=== PATIENT | female | born 1975 | race African-American/Black ===

== ENCOUNTER 2018-05-07 09:28 | Emergency (ER) | payer SELFPAY ==
[~2018-05-07] VITALS: Ht 160 cm; Wt 103.4 kg
[~2018-05-07 09:28] MED LIST: ACHD5005 PO; BUSP5TAB59; CETI10TA17; CHLO25TA22; DCS100C PO; DIAZ5TAB PO; HYDR-4226 PO; IBP600T1 PO; IRON1TAB94 PO; METR500T PO; MMT17NA; NAPR-243 PO; NITR-65 PO; ONDA4TAB8 PO
--- OUTSIDE RECORDS SUMMARY | 2018-05-07 09:33 | XMS REPORT ---
Author Author [employer] Organization [facility] Address [address] [place] [address] Care Team Providers Care Medical Lab Assistant Name Role Phone [employer] Unavailable PROBLEMS Type Condition ICD9-CM Code ROB55-EV Code Onset Dates Condition Status SNOMED Code Problem Depression with anxiety F41.8 Active 485230830 Problem Gastroesophageal reflux disease, esophagitis presence not specified K21.9 Active 991492874 Problem Essential hypertension I10 Active 93896528 Problem Hypercholesteremia E78.00 Active 56085581 Problem Seasonal allergic rhinitis due to pollen J30.1 Active 28055435 Problem Anxiety F41.9 Active 80531525 ALLERGIES No Known Allergies ENCOUNTERS Encounter Location Date Diagnosis [facility] [id number] [place] [address]1970[address]133 Apr, [facility] [id number] [place] [address] 23585- 7750 Feb, Essential hypertension I10 ; Hypercholesteremia E78.00 ; Pre -diabetes R73.03 and Depression with anxiety F41.8 [facility] [address] [place] [id number] [place] [address] 03948- 4258 Feb, Essential hypertension I10 ; Pre-diabetes R73.03 ; BMI 40.0- 44.9, adult Z68.41 ; Depression with anxiety F41.8 ; Seasonal allergic rhinitis due to pollen J30.1 ; Hypercholesteremia E78.00 and Anxiety F41.9 [facility] WALK IN [facility] [id number] [place] [address]174 [address]267 08 Jan, 2018 Left ear impacted cerumen H61.22 ; Sore throat J02.9 ; BMI 40.0-44.9, adult Z68.41 and Viral pharyngitis J02.9 [facility] WALK IN [place] [id number] [place] [address]013 [address]2261 Jan, Dysuria R30.0 ; Vaginal discharge N89.8 and BMI 40.0-44.9, adult Z68.41 [facility] WALK IN [address] [address] Jan, Dysuria R30.0 ; Urgency of urination R39.15 ; Frequency of urination R35.0 and Type 2 diabetes mellitus without complication, without long- term current use of insulin E11.9 [facility] WALK IN [address] [address] Sep, Seasonal allergic rhinitis, unspecified trigger J30.2 [facility] WALK IN [address] [address] Sep, Dysuria R30.0 and Acute cystitis without hematuria N30.00 [facility] IN [address] [address] Jun, Nasopharyngitis acute J00 [address] [address]334 Mar, Essential hypertension I10 ; Gastroesophageal reflux disease , esophagitis presence not specified K21.9 and Depression with anxiety F41.[address] [address]- 2047 Feb, [address] [address]- 6026 Jan, Essential hypertension I10 ; Gastroesophageal reflux disease , esophagitis presence not specified K21.9 and Anxiety F41.[address] 0[address]32- 1362 Jan, Essential hypertension I10 ; Seasonal allergic rhinitis due to pollen J30.1 ; Gastroesophageal reflux disease, esophagitis presence not specified K21.9 ; Excessive daytime sleepiness G47.19 ; Snoring R06.83 ; Anxiety F41.9 ; Decreased breath sounds at right lung base R09.89 ; Otalgia of left ear H92.02 and Tonsillar hypertrophy J35.1 [facility] WALK IN [place] [address] [address] Jan, Bronchitis J40 and Acute seasonal allergic rhinitis, unspecified trigger J30.2 [facility] WALK IN [place] [address] [address] December, Pharyngitis due to other organism J02.8 [place] [address] 21357- 8368 Nov, Scabies infestation B86 [place] [address] 05394- 7838 Oct, [place] [address] 25546- 2279 Oct, Dermatitis L30.9 [place] [address] 14357- 2831 May, Routine health maintenance Z00.00 ; Excessive daytime sleepiness G47.19 ; Snoring R06.83 ; Acute non-recurrent frontal sinusitis J01.10 and Hx of candidiasis Z86.19 [place] [address] 11396- 0349 May, Seasonal allergic rhinitis due to pollen J30.1 ; Dizziness R42 ; Sore throat J02.9 ; Gastroesophageal reflux disease, esophagitis presence not specified K21.9 ; Snoring R06.83 ; Apnea, not elsewhere classified R06.81 ; Tonsillar hypertrophy J35.1 ; Excessive daytime sleepiness G47.19 and Anxiety F41.9 [facility] WALK IN [place] [address] 7[address] Apr, Benign positional vertigo, unspecified laterality H81.10 [place] [address] 19183- 6725 Jan, Urinary frequency R35.0 ; Essential hypertension I10 and Vaginal dryness N89.8 [place] [id number] [place] [address]146- 5384 04 Dec, 2015 Unprotected sex Z72.51 and Vaginal discharge N89.8 [facility] IN [facility] [id number] [place] [address] 02703 -[address]39 19 Sep, 2015 Acute bacterial sinusitis J01.90 and Acute pharyngitis J02.9 [place] [address] 76303- 2450 Sep, Essential hypertension I10 ; Dizziness R42 ; FH: HTN ( hypertension) Z82.49 ; Family history of diabetes mellitus Z83.3 and Anxiety F41.9 [place] [address] 96790- 0559 Sep, [place] [address] 77070- 8508 Sep, Essential hypertension I10 [place] [address] 85479- 6512 Sep, Essential hypertension I10 ; Dizziness R42 ; FH: HTN ( hypertension) Z82.49 and Family history of diabetes mellitus Z83.3 [place] [address] 98448- 8523 20 May, 2015 URI (upper respiratory infection) J06.9 [place] [address] 92113- 5199 09 May, 2015 UTI (urinary tract infection) N39.0 and Vaginitis N76.0 [place] [address] 65196- 6839 10 Jan, 2015 Routine gynecological examination V72.31 ; Breast cancer screening V76.10 and Urinary frequency 788.41 [place] [address] 46314- 1765 14 Nov, 2014 [place] [address] 13211- 3769 13 Nov, 2014 [facility] [place] [facility] [address] [id number] [place] [address]- 8964 Oct, [facility] [place] [facility] [address] [id number] [place] [address]- 1799 Oct, [facility] [place] [facility] [address] [id number] [place] [address]- 0429 Oct, [facility] [place] [facility] [address] [id number] [place] [address]- 4204 Jan, [facility] [place] [facility] [address] [id number] [place] [address]- 5592 December, [facility] [place] [facility] [address] [id number] [place] [address]- 3536 December, [facility] [place] [facility] [address] [id number] [place] [address]- 7997 December, [facility] [place] [facility] [address] [id number] [place] [address]- 5496 Nov, [facility] [place] [facility] [address] [id number] [place] [address]- 9496 Nov, [facility] [place] [facility] [address] [id number] [place] [address]- 4250 Nov, [facility] [place] [facility] [address] [id number] [place] [address]- 8266 Oct, [facility] [place] [facility] [address] [id number] [address] 6[address] Jun, [facility] [place] [facility] [address] [id number] [place] [address]- 5374 Jun, [facility] [place] [facility] [address] [id number] [place] [address]- 9567 May, [facility] [place] [facility] [address] [id number] [place] [address]- 2400 May, [facility] [place] [facility] [address] [address] May, [facility] [address] [address] May, [facility] [address] [address]- 5876 May, [facility] [address] [place] [address] 34387- 3582 May, [facility] [address] [facility] [id number] [address] 2546 May, [facility] [address] [place] [address] 62424- 2766 May, [facility] [address] [address] 2276 Jan, [facility] [id number] [place] [address] 94033- 9171 May, [facility] [address] [address] May, [facility] [address] [place] [address]199- 7900 May, [facility] [address] [address] 8262 May, [facility] [address] [address] 6656 May, [facility] [address] [address]272 Apr, [facility] [address] [address]- 2653 Mar, IMMUNIZATIONS No Known Immunizations SOCIAL HISTORY Never Assessed REASON FOR VISIT [facility] follow up. Pelvic pain, painful intercourse, frequency. NEYDA Fischer PLAN OF CARE Activity Details Follow Up 4 Weeks Reason:follow up /BS VITAL SIGNS Height 63 in 2018-02-21 Weight 226.7 lbs 2018-02-21 Temperature 98.4 degrees Fahrenheit 2018-02-21 Heart Rate 95 bpm 2018-02-21 Respiratory Rate 20 2018-02-21 BMI 40.15 kg/m2 2018-02-21 Blood pressure systolic 116 mmHg 2018-02-21 Blood pressure diastolic 84 mmHg 2018-02-21 MEDICATIONS Medication Instructions Dosage Frequency Start Date End Date Duration Status BuSpar 10 mg Orally Twice a day 1 tablet 12h Feb, 30 days Active Chlorthalidone 25 MG Orally Once a day 1 tablet 24h 90 days Active MetFORMIN HCl ER 500 mg Orally Once a day 1 tablet with evening meal 24h Feb, 30 day(s) Active Loratadine 10 mg Orally Once a day 1 tablet 24h May, 90 days Active RESULTS No Results PROCEDURES No Known procedures INSTRUCTIONS MEDICATIONS ADMINISTERED No Known Medications MEDICAL (GENERAL) HISTORY Type Description Date Medical History Hearing loss-having trouble hearing out of left ear d/t growth Medical History UTI Medical History Backache ever since she had epidurals Medical History Headache syndrome Medical History Cancer-treated for cervical cancer awhile back Medical History Tonsillar hypertrophy Medical History Excessive daytime sleepiness Medical History Snoring Medical History Apnea, not elsewhere classified Surgical History Hysterectomy 2012 Surgical History Eye Surgery on nerves in both eyes Surgical History C sections x 5 Surgical History ACL/MCL/ fx right femur repair 11/2015 Hospitalization History surgery
--- OUTSIDE RECORDS SUMMARY | 2018-05-07 09:33 | XMS REPORT ---
Author Author SHANTA WREN [facility] WALK IN [facility] Address [address] [place] [address] Care Team Providers Care Industrial Maintenance Repairer Helper Name Role Phone SIENA SHANTA Unavailable PROBLEMS Type Condition ICD9-CM Code ZWD85-TQ Code Onset Dates Condition Status SNOMED Code Problem Depression with anxiety F41.8 Active 543527624 Problem Gastroesophageal reflux disease, esophagitis presence not specified K21.9 Active 250808245 Problem Essential hypertension I10 Active 13317560 Problem Hypercholesteremia E78.00 Active 69300814 Problem Seasonal allergic rhinitis due to pollen J30.1 Active 68909354 Problem Anxiety F41.9 Active 42730568 ALLERGIES No Known Allergies ENCOUNTERS Encounter Location Date Diagnosis [facility] [address] [place] [address] 73583- 0329 Apr, [facility] [address] [place] [id number] [place] [address] 39047- 7640 Feb, Essential hypertension I10 ; Hypercholesteremia E78.00 ; Pre -diabetes R73.03 and Depression with anxiety F41.8 [place] [address] [place] [address] 14209- 3794 Feb, Essential hypertension I10 ; Pre-diabetes R73.03 ; BMI 40.0- 44.9, adult Z68.41 ; Depression with anxiety F41.8 ; Seasonal allergic rhinitis due to pollen J30.1 ; Hypercholesteremia E78.00 and Anxiety F41.9 [facility] IN [facility] [address] [place] [address]52 -[address]75 08 Jan, 2018 Left ear impacted cerumen H61.22 ; Sore throat J02.9 ; BMI 40.0-44.9, adult Z68.41 and Viral pharyngitis J02.9 [facility]ALK IN [place] [id number] [place] [address]41 -7986 Jan, Dysuria R30.0 ; Vaginal discharge N89.8 and BMI 40.0-44.9, adult Z68.41 [facility] WALK IN [address] [address] Jan, Dysuria R30.0 ; Urgency of urination R39.15 ; Frequency of urination R35.0 and Type 2 diabetes mellitus without complication, without long- term current use of insulin E11.9 [facility] WALK IN [address] [address] Sep, Seasonal allergic rhinitis, unspecified trigger J30.2 [facility] WALK IN [address] 05179 [address]97 10 Sep, 2017 Dysuria R30.0 and Acute cystitis without hematuria N30.00 [facility] IN [address] [address]67 Jun, Nasopharyngitis acute J00 [address] [address]- [address] Mar, Essential hypertension I10 ; Gastroesophageal reflux disease , esophagitis presence not specified K21.9 and Depression with anxiety F41.[address] [address]- [address] Feb, [address] [address]- 7214 Jan, Essential hypertension I10 ; Gastroesophageal reflux disease , esophagitis presence not specified K21.9 and Anxiety F41.[address] [address]- 4612 Jan, Essential hypertension I10 ; Seasonal allergic rhinitis due to pollen J30.1 ; Gastroesophageal reflux disease, esophagitis presence not specified K21.9 ; Excessive daytime sleepiness G47.19 ; Snoring R06.83 ; Anxiety F41.9 ; Decreased breath sounds at right lung base R09.89 ; Otalgia of left ear H92.02 and Tonsillar hypertrophy J35.1 [facility] WALK IN [place] [address] [address] Jan, Bronchitis J40 and Acute seasonal allergic rhinitis, unspecified trigger J30.2 [facility] WALK IN [place] [address] [address] December, Pharyngitis due to other organism J02.8 [place] [address] 67[address]- 5831 Nov, Scabies infestation B86 [place] [address] [address]21- 3855 Oct, [place] [address] [address]- 3814 Oct, Dermatitis L30.9 [place] [address] 72431- 9032 May, Routine health maintenance Z00.00 ; Excessive daytime sleepiness G47.19 ; Snoring R06.83 ; Acute non-recurrent frontal sinusitis J01.10 and Hx of candidiasis Z86.19 [place] [address] 77021- 6425 May, Seasonal allergic rhinitis due to pollen J30.1 ; Dizziness R42 ; Sore throat J02.9 ; Gastroesophageal reflux disease, esophagitis presence not specified K21.9 ; Snoring R06.83 ; Apnea, not elsewhere classified R06.81 ; Tonsillar hypertrophy J35.1 ; Excessive daytime sleepiness G47.19 and Anxiety F41.9 [facility]ALK [place] [address] 648[address]05 Apr, Benign positional vertigo, unspecified laterality H81.10 [place] [address] 87521- 9740 Jan, Urinary frequency R35.0 ; Essential hypertension I10 and Vaginal dryness N89.8 [place] [address] [place] [id number] [place] [address] 80475- 3945 December, Unprotected sex Z72.51 and Vaginal discharge N89.8 [facility] IN [facility] [address] [address] 19 Sep, 2015 Acute bacterial sinusitis J01.90 and Acute pharyngitis J02.9 [place] [address] 20385- 2785 11 Sep, 2015 Essential hypertension I10 ; Dizziness R42 ; FH: HTN ( hypertension) Z82.49 ; Family history of diabetes mellitus Z83.3 and Anxiety F41.9 [place] [address] 04736- 7145 Sep, [place] [address] 23385- 9650 Sep, Essential hypertension I10 [place] [address] 81271- 1869 Sep, Essential hypertension I10 ; Dizziness R42 ; FH: HTN ( hypertension) Z82.49 and Family history of diabetes mellitus Z83.3 [place] [address] 02403- 0389 May, URI (upper respiratory infection) J06.9 [place] [address] 43[address]- 9894 09 May, 2015 UTI (urinary tract infection) N39.0 and Vaginitis N76.0 [place] [address] 38710- 1150 10 Jan, 2015 Routine gynecological examination V72.31 ; Breast cancer screening V76.10 and Urinary frequency 788.41 [place] [address] 07733- 5719 14 Nov, 2014 [place] [address] [address]608- 5939 Nov, [facility] [place] [facility] [address] [id number] [place] [address]- 4864 Oct, [facility] [place] [facility] [address] [id number] [place] [address]- 7044 Oct, [facility] [place] [facility] [address] [id number] [place] [address]- 1324 Oct, [facility] [place] [facility] [address] [id number] [place] [address]- 4324 Jan, [facility] [place] [facility] [address] [id number] [place] [address]- 6347 December, [facility] [place] [facility] [address] [id number] [place] [address]- 8834 December, [facility] [place] [facility] [address] [id number] [place] [address]- 7365 December, [facility] [place] [facility] [address] [id number] [place] [address]- 1810 Nov, [facility] [place] [facility] [address] [id number] [place] [address]- 7987 Nov, [facility] [place] [facility] [address] [id number] [place] [address]- 5015 Nov, [facility] [place] [facility] [address] [id number] [place] [address]- 4027 Oct, [facility] [place] [facility] [address] [id number] [place] [address]- 9016 Jun, [facility] [place] [facility] [address] [id number] [place] [address] Jun, [facility] [place] [facility] [address] [id number] [place] [address] May, [facility] [place] [facility] [address] [id number] [place] [address] May, [facility] [place] [facility] [address] [address] May, [facility] [address] [facility] [id number] [address] May, [facility] [address] [facility] [id number], [place] [address]- 0368 May, [facility] [address] [place] [address] 577898- 7438 May, [facility] [address] [facility] [id number], [place] [address]- 8157 May, [facility] [address] [place] [address] 499133- 0294 May, [facility] [address] [place] [id number] [address]- 7077 Jan, [facility] [address] [place] [address] 95766- 3971 May, [facility] [address], [place] [address]- 5140 May, [facility] [address] [place] [id number] [address]- 0[address] May, [facility] [address], [place] [address]- 7420 May, [facility] [address], [place] [address]- 4719 May, [facility] [address] [place] [id number], [place] [address]- 8117 Apr, [facility] [address] [address] Mar, IMMUNIZATIONS No Known Immunizations SOCIAL HISTORY Never Assessed REASON FOR VISIT Vaginal burning- much worse than yesterday JStrasserRN PLAN OF CARE Activity Details Follow Up prn Reason: VITAL SIGNS Height 63 in 2018-01-14 Weight 226.2 lbs 2018-01-14 Temperature 98.3 degrees Fahrenheit 2018-01-14 Heart Rate 92 bpm 2018-01-14 Respiratory Rate 22 2018-01-14 BMI 40.07 kg/m2 2018-01-14 Blood pressure systolic 126 mmHg 2018-01-14 Blood pressure diastolic 90 mmHg 2018-01-14 MEDICATIONS Medication Instructions Dosage Frequency Start Date End Date Duration Status BusPIRone HCl 5 mg Orally 2 times a day prn 1 tablet twice a day Sep, 90 days Active Chlorthalidone 25 MG Orally Once a day 1 tablet 24h 90 days Active Sudafed 12 Hour 120 MG Orally every 12 hrs 1 tablet as needed 12h 10 Not-Taking Metformin HCl 500 mg Orally Once a day with evening meal 1 tablet Feb Active Omeprazole 20 mg Orally Once a day 1 capsules each evening 30 minutes before bed 24h May, 90 days Not-Taking HydrOXYzine HCl 50 MG Orally every 6 hrs, prn itching 1 Oct, 90 days Not-Taking Flonase 50 MCG/ACT Nasally Once a day 1 spray in each nostril 24h Sep, 30 day(s) Not-Taking Loratadine 10 mg Orally Once a day 1 tablet 24h May, 90 days Active RESULTS Name Result Date Reference Range UA LONG DIP (IN HOUSE) 2018-01-14 Lot # [id number] Exp date 2018-12-12 Clarity clear Color yellow Odor none GLU negative ALAN negative KET negative SG >=1.030 BLO negative pH 6.5 Protein negative URO 1.0 NIT negative MÓNICA negative Lot # [id number] Exp date Jul 2018 PROCEDURES Procedure Date Ordered Result Body Site URINALYSIS, AUTO, W/O SCOPE January 14, 2018 INSTRUCTIONS MEDICATIONS ADMINISTERED No Known Medications MEDICAL [...]
--- OUTSIDE RECORDS SUMMARY | 2018-05-07 09:33 | XMS REPORT ---
Author Author [employer] Organization [facility] Address [address] [place] [address] Care Team Providers Care Evp Name Role Phone [employer] Unavailable PROBLEMS Type Condition ICD9-CM Code XAR62-WN Code Onset Dates Condition Status SNOMED Code Problem Depression with anxiety F41.8 Active 989564486 Problem Gastroesophageal reflux disease, esophagitis presence not specified K21.9 Active 846135131 Problem Essential hypertension I10 Active 50480854 Problem Hypercholesteremia E78.00 Active 33561046 Problem Seasonal allergic rhinitis due to pollen J30.1 Active 10678748 Problem Anxiety F41.9 Active 25488477 ALLERGIES No Information ENCOUNTERS Encounter Location Date Diagnosis [facility] [id number] [place] [address]00[address] 1215 Apr, [facility] [id number] [place] [address] 15553- 4552 Feb, Essential hypertension I10 ; Hypercholesteremia E78.00 ; Pre -diabetes R73.03 and Depression with anxiety F41.8 [place] [id number] [place] [address] 31779- 5928 Feb, Essential hypertension I10 ; Pre-diabetes R73.03 ; BMI 40.0- 44.9, adult Z68.41 ; Depression with anxiety F41.8 ; Seasonal allergic rhinitis due to pollen J30.1 ; Hypercholesteremia E78.00 and Anxiety F41.9 [facility] WALK IN [facility] [id number] [place] [address] 78691 -5769 08 Jan, 2018 Left ear impacted cerumen H61.22 ; Sore throat J02.9 ; BMI 40.0-44.9, adult Z68.41 and Viral pharyngitis J02.9 [facility] WALK IN [place] [id number] [place] [address]268 -8779 Jan, Dysuria R30.0 ; Vaginal discharge N89.8 and BMI 40.0-44.9, adult Z68.41 [facility] WALK IN [address] [address] Jan, Dysuria R30.0 ; Urgency of urination R39.15 ; Frequency of urination R35.0 and Type 2 diabetes mellitus without complication, without long- term current use of insulin E11.9 [facility] WALK IN [address] [address] Sep, Seasonal allergic rhinitis, unspecified trigger J30.2 [facility] WALK IN [address] [address] 10 Sep, 2017 Dysuria R30.0 and Acute cystitis without hematuria N30.00 [facility] WALK IN [address] 6[address]79[address] Jun, Nasopharyngitis acute J00 [address] [address]- 7617 Mar, Essential hypertension I10 ; Gastroesophageal reflux disease , esophagitis presence not specified K21.9 and Depression with anxiety F41.[address] [address]- 5579 Feb, [address] [address]01- [address]35 Jan, Essential hypertension I10 ; Gastroesophageal reflux disease , esophagitis presence not specified K21.9 and Anxiety F41.[address] 53433- 7194 Jan, Essential hypertension I10 ; Seasonal allergic rhinitis due to pollen J30.1 ; Gastroesophageal reflux disease, esophagitis presence not specified K21.9 ; Excessive daytime sleepiness G47.19 ; Snoring R06.83 ; Anxiety F41.9 ; Decreased breath sounds at right lung base R09.89 ; Otalgia of left ear H92.02 and Tonsillar hypertrophy J35.1 [facility] WALK IN [place] [address] [address] Jan, Bronchitis J40 and Acute seasonal allergic rhinitis, unspecified trigger J30.2 [facility] WALK IN [place] [address] [address] December, Pharyngitis due to other organism J02.8 [place] [address] 03141- 7382 Nov, Scabies infestation B86 [place] [address] 17385- 3519 Oct, [place] [address] 64509- 9059 Oct, Dermatitis L30.9 [place] [address] 84509- 8081 May, Routine health maintenance Z00.00 ; Excessive daytime sleepiness G47.19 ; Snoring R06.83 ; Acute non-recurrent frontal sinusitis J01.10 and Hx of candidiasis Z86.19 [place] [address] 91243- 6730 May, Seasonal allergic rhinitis due to pollen J30.1 ; Dizziness R42 ; Sore throat J02.9 ; Gastroesophageal reflux disease, esophagitis presence not specified K21.9 ; Snoring R06.83 ; Apnea, not elsewhere classified R06.81 ; Tonsillar hypertrophy J35.1 ; Excessive daytime sleepiness G47.19 and Anxiety F41.9 [facility] WALK IN [place] [address] [address] Apr, Benign positional vertigo, unspecified laterality H81.10 [place] [address] 42531- 9387 Jan, Urinary frequency R35.0 ; Essential hypertension I10 and Vaginal dryness N89.8 [place] [id number] [place] [address] 02155- 9636 04 Dec, 2015 Unprotected sex Z72.51 and Vaginal discharge N89.8 [facility] IN [facility] [id number] [place] [address] 77112 -4792 19 Sep, 2015 Acute bacterial sinusitis J01.90 and Acute pharyngitis J02.9 [place] [address] 02723- 6140 Sep, Essential hypertension I10 ; Dizziness R42 ; FH: HTN ( hypertension) Z82.49 ; Family history of diabetes mellitus Z83.3 and Anxiety F41.9 [place] [address] 30130- 5989 03 Sep, 2015 [place] [address] 88283- 2287 Sep, Essential hypertension I10 [place] [address] 71830- 7161 Sep, Essential hypertension I10 ; Dizziness R42 ; FH: HTN ( hypertension) Z82.49 and Family history of diabetes mellitus Z83.3 [place] [address] 17545- 8718 20 May, 2015 URI (upper respiratory infection) J06.9 [place] [address] 54078- 3515 09 May, 2015 UTI (urinary tract infection) N39.0 and Vaginitis N76.0 [place] [address] 39412- 2819 10 Jan, 2015 Routine gynecological examination V72.31 ; Breast cancer screening V76.10 and Urinary frequency 788.41 [place] [address] 35360- 4780 14 Nov, 2014 [place] [address] 49995- 0780 Nov, [facility] [address] [id number] [place] [address] 12[address] Oct, [facility] [place] [facility] [address] [id number] [place] [address]- 4757 Oct, [facility] [place] [facility] [address] [id number] [place] [address]- 6494 Oct, [facility] [place] [facility] [address] [id number] [place] [address]- 8766 Jan, [facility] [place] [facility] [address] [id number] [place] [address]- 9843 December, [facility] [place] [facility] [address] [id number] [place] [address]- 8022 December, [facility] [place] [facility] [address] [id number] [place] [address]- 9787 December, [facility] [place] [facility] [address] [id number] [place] [address]- 2455 Nov, [facility] [place] [facility] [address] [id number] [place] [address]- 2510 Nov, [facility] [place] [facility] [address] [id number] [place] [address]- 3677 Nov, [facility] [place] [facility] [address] [id number], [place] [address] 28[address] Oct, [facility] [place] [facility] [address] [id number], [place] [address] 0682 Jun, [facility] [place] [facility] [address] [id number] [place] [address]- 6702 Jun, [facility] [place] [facility] [address] [id number] [place] [address]- 5800 May, [facility] [place] [facility] [address] [id number] [place] [address]- 9207 May, [facility] [place] [facility] [address] [address] 15 May, 2012 [facility] [address] [address] 62[address] May, [facility] [address] [place] [address]- 0[address] May, [facility] [address] [place] [address] 75694- 4940 May, [facility] [address], [place] [address]- 3087 May, [facility] [address] [place] [address] 31824- 8468 May, [facility] [address] [place] [address] 44399- 7681 Jan, [facility] [id number] [place] [address] 58531- 3815 May, [facility] [address] [address]- 4396 May, [facility] [id number] [place] [address] 99186- 6567 May, [facility] [address], [place] [address]- 3129 May, [facility] [address], [place] [address]- 0451 May, [facility] [address], [place] [address]- 54[address] Apr, [facility] [address], [place] [address] 50[address] Mar, IMMUNIZATIONS No Known Immunizations SOCIAL HISTORY Never Assessed REASON FOR VISIT Lab (walk-in) PLAN OF CARE VITAL SIGNS MEDICATIONS Unknown Medications RESULTS No Results PROCEDURES Procedure Date Ordered Result Body Site LIPID PANEL February 22, 2018 COMPREHEN METABOLIC PANEL February 22, 2018 ASSAY THYROID STIM HORMONE February 22, 2018 COMPLETE CBC W/AUTO DIFF WBC February 22, 2018 Hemoglobin Test Send Out 0 dollar February 22, 2018 INSTRUCTIONS MEDICATIONS ADMINISTERED No Known Medications [...]
--- OUTSIDE RECORDS SUMMARY | 2018-05-07 09:33 | XMS REPORT ---
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 Name Role Phone SIENA SHANTA Unavailable PROBLEMS Type Condition ICD9-CM Code BNH93-CN Code Onset Dates Condition Status SNOMED Code Problem Depression with anxiety F41.8 Active 707857065 Problem Gastroesophageal reflux disease, esophagitis presence not specified K21.9 Active 180527351 Problem Essential hypertension I10 Active 92515063 Problem Hypercholesteremia E78.00 Active 50431258 Problem Seasonal allergic rhinitis due to pollen J30.1 Active 74112330 Problem Anxiety F41.9 Active 54256357 ALLERGIES No Known Allergies ENCOUNTERS Encounter Location Date Diagnosis [facility] [address] [place] [address]41- 0531 Apr, [facility] [id number] [place] [address] 81667- 0696 Feb, Essential hypertension I10 ; Hypercholesteremia E78.00 ; Pre -diabetes R73.03 and Depression with anxiety F41.8 [place] [address] [place] [address] 77796- 5778 Feb, Essential hypertension I10 ; Pre-diabetes R73.03 ; BMI 40.0- 44.9, adult Z68.41 ; Depression with anxiety F41.8 ; Seasonal allergic rhinitis due to pollen J30.1 ; Hypercholesteremia E78.00 and Anxiety F41.9 [facility] IN [facility] [address] [place] [address]2365 -[address]73 08 Jan, 2018 Left ear impacted cerumen H61.22 ; Sore throat J02.9 ; BMI 40.0-44.9, adult Z68.41 and Viral pharyngitis J02.9 [facility] WALK IN [place] [id number] [place] [address]211 [address]7852 Jan, Dysuria R30.0 ; Vaginal discharge N89.8 and BMI 40.0-44.9, adult Z68.41 [facility] WALK IN [address] [address] Jan, Dysuria R30.0 ; Urgency of urination R39.15 ; Frequency of urination R35.0 and Type 2 diabetes mellitus without complication, without long- term current use of insulin E11.9 [facility] WALK IN [address] [address] Sep, Seasonal allergic rhinitis, unspecified trigger J30.2 [facility] WALK IN [address] [address] 10 Sep, 2017 Dysuria R30.0 and Acute cystitis without hematuria N30.00 [facility] IN [address] 30960 [address] Jun, Nasopharyngitis acute J00 [address] [address]11 Mar, Essential hypertension I10 ; Gastroesophageal reflux disease , esophagitis presence not specified K21.9 and Depression with anxiety F41.[address] [address]- 7099 Feb, [address] 82338- 9960 Jan, Essential hypertension I10 ; Gastroesophageal reflux disease , esophagitis presence not specified K21.9 and Anxiety F41.[address] 98[address]- 7742 Jan, Essential hypertension I10 ; Seasonal allergic rhinitis due to pollen J30.1 ; Gastroesophageal reflux disease, esophagitis presence not specified K21.9 ; Excessive daytime sleepiness G47.19 ; Snoring R06.83 ; Anxiety F41.9 ; Decreased breath sounds at right lung base R09.89 ; Otalgia of left ear H92.02 and Tonsillar hypertrophy J35.1 [facility] WALK IN [place] [address] [address] Jan, Bronchitis J40 and Acute seasonal allergic rhinitis, unspecified trigger J30.2 [facility] WALK IN [place] [address] 17[address] December, Pharyngitis due to other organism J02.8 [place] [address] 82491- 4795 Nov, Scabies infestation B86 [place] [address] 83255- 8832 Oct, [place] [address] 53594- 9412 Oct, Dermatitis L30.9 [place] [address] [address]13- 5705 May, Routine health maintenance Z00.00 ; Excessive daytime sleepiness G47.19 ; Snoring R06.83 ; Acute non-recurrent frontal sinusitis J01.10 and Hx of candidiasis Z86.19 [place] [address] 23689- 1390 May, Seasonal allergic rhinitis due to pollen J30.1 ; Dizziness R42 ; Sore throat J02.9 ; Gastroesophageal reflux disease, esophagitis presence not specified K21.9 ; Snoring R06.83 ; Apnea, not elsewhere classified R06.81 ; Tonsillar hypertrophy J35.1 ; Excessive daytime sleepiness G47.19 and Anxiety F41.9 [facility] WALK IN [place] [address] [address] Apr, Benign positional vertigo, unspecified laterality H81.10 [place] [address] 87401- 6423 Jan, Urinary frequency R35.0 ; Essential hypertension I10 and Vaginal dryness N89.8 [place] [id number] [place] [address] 18769- 2057 December, Unprotected sex Z72.51 and Vaginal discharge N89.8 [facility] IN [facility] [address] [address] 19 Sep, 2015 Acute bacterial sinusitis J01.90 and Acute pharyngitis J02.9 [place] [address] 34817- 9709 11 Sep, 2015 Essential hypertension I10 ; Dizziness R42 ; FH: HTN ( hypertension) Z82.49 ; Family history of diabetes mellitus Z83.3 and Anxiety F41.9 [place] [address] 28073- 7968 Sep, [place] [address] 71759- 6074 Sep, Essential hypertension I10 [place] [address] 95988- 3200 Sep, Essential hypertension I10 ; Dizziness R42 ; FH: HTN ( hypertension) Z82.49 and Family history of diabetes mellitus Z83.3 [place] [address] 10557- 8647 May, URI (upper respiratory infection) J06.9 [place] [address] 84336- 9634 09 May, 2015 UTI (urinary tract infection) N39.0 and Vaginitis N76.0 [place] [address] 37812- 6015 10 Jan, 2015 Routine gynecological examination V72.31 ; Breast cancer screening V76.10 and Urinary frequency 788.41 [place] [address] 83433- 2724 14 Nov, 2014 [place] [address] 8[address]34- 3125 Nov, [facility] [place] [facility] [address] [id number] [place] [address]- 7843 Oct, [facility] [place] [facility] [address] [id number] [place] [address]- 6383 Oct, [facility] [place] [facility] [address] [id number] [place] [address]- 0885 Oct, [facility] [place] [facility] [address] [id number] [place] [address]- 8727 Jan, [facility] [place] [facility] [address] [id number] [place] [address]- 9182 December, [facility] [place] [facility] [address] [id number] [place] [address]- 0201 December, [facility] [place] [facility] [address] [id number] [place] [address]- 5194 December, [facility] [place] [facility] [address] [id number] [place] [address]- 4527 Nov, [facility] [place] [facility] [address] [id number] [place] [address]- 2463 Nov, [facility] [place] [facility] [address] [id number] [place] [address]- 6542 Nov, [facility] [place] [facility] [address] [id number] [place] [address]- 2680 Oct, [facility] [place] [facility] [address] [id number] [place] [address]- 5848 Jun, [facility] [place] [facility] [address] [id number] [place] [address] Jun, [facility] [place] [facility] [address] [id number] [place] [address] May, [facility] [place] [facility] [address] [id number] [place] [address] May, [facility] [place] [facility] [address], [place] [address]- 7424 May, [facility] [address], [place] [address]- 0654 May, [facility] [address] [place] [address] 2546 May, [facility] [address] [place] [address] 04785- 5200 May, [facility] [address] [facility] [id number], [place] [address]- 9403 May, [facility] [id number] [place] [address] 73950- 8456 May, [facility] [address], [place] [address]- 1358 Jan, [facility] [address] [place] [address] 51098- 2179 May, [facility] [address], [place] [address]- 0418 May, [facility] [id number] [address]- 9914 May, [facility] [address], [place] [address]- 1402 May, [facility] [address], [place] [address]- 6238 May, [facility] [address], [place] [address]- 1060 Apr, [facility] [address], [place] [address]- 6131 Mar, IMMUNIZATIONS No Known Immunizations SOCIAL HISTORY Never Assessed REASON FOR VISIT sore throat and earache started yesterday JStrasserRN PLAN OF CARE Activity Details Follow Up prn Reason: VITAL SIGNS Height 63 in 2018-01-20 Weight 226.2 lbs 2018-01-20 Temperature 97.5 degrees Fahrenheit 2018-01-20 Heart Rate 80 bpm 2018-01-20 Respiratory Rate 18 2018-01-20 BMI 40.07 kg/m2 2018-01-20 Blood pressure systolic 120 mmHg 2018-01-20 Blood pressure diastolic 80 mmHg 2018-01-20 MEDICATIONS Medication Instructions Dosage Frequency Start Date End Date Duration Status Flonase 50 MCG/ACT Nasally Once a day 1 spray in each nostril 24h Sep, 30 day(s) Not-Taking Sudafed 12 Hour 120 MG Orally every 12 hrs 1 tablet as needed 12h 10 Not-Taking Chlorthalidone 25 MG Orally Once a day 1 tablet 24h 90 days Active Metformin HCl 500 mg Orally Once a day with evening meal 1 tablet Feb Active Loratadine 10 mg Orally Once a day 1 tablet 24h May, 90 days Active BusPIRone HCl 5 mg Orally 2 times a day prn 1 tablet twice a day Sep, 90 days Active HydrOXYzine HCl 50 MG Orally every 6 hrs, prn itching 1 Oct, 90 days Not-Taking Omeprazole 20 mg Orally Once a day 1 capsules each evening 30 minutes before bed 24h May, 90 days Not-Taking RESULTS Name Result Date Reference Range STREP A (IN HOUSE) 2018-01-20 STREP A negative Control + Lot # [id number] Exp date 2020-05-30 PROCEDURES Procedure Date Ordered Result Body Site EAR IRRIGATION January 20, 2018 STREP A ASSAY W/OPTIC January 20, 2018 INSTRUCTIONS MEDICATIONS ADMINISTERED No Known Medications [...]
--- OUTSIDE RECORDS SUMMARY | 2018-05-07 09:34 | XMS REPORT ---
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 Unknown Non Drug Allergy Apr, Unknown SOCIAL HISTORY No smoking Hx information available PLAN OF CARE VITAL SIGNS Height 63 in 2016-05-04 Weight 212.6 lbs 2016-05-04 Heart Rate 80 bpm 2016-05-04 Respiratory Rate 18 2016-05-04 BMI 37.66 kg/m2 2016-05-04 Blood pressure systolic 114 mmHg 2016-05-04 Blood pressure diastolic 84 mmHg 2016-05-04 MEDICATIONS Medication Instructions Dosage Frequency Start Date End Date Duration Status Meclizine HCl 25 MG Orally 3 times a day, prn 1 tablet as needed Apr, 05 days Active Nasonex 50 MCG/ACT Nasally Once a day 2 sprays in each nostril 24h Sep, 14 days Active Valium 5 MG Active Zofran ODT 4 MG Orally every 8 hrs 1 tablet on the tongue and allow to dissolve 8h Active RESULTS No Results PROCEDURES Procedure Date Ordered Related Diagnosis Body Site Office Visit, Est Pt., Level 3 May 04, 2016 IMMUNIZATIONS No Known Immunizations
--- OUTSIDE RECORDS SUMMARY | 2018-05-07 09:34 | XMS REPORT ---
Author Author JENICORDELLEVA Organization [facility] [place] Address [address] [place] [address] Care Team Providers Care Agronomy Instructor Name Role Phone NGOCORDELL HeELE Unavailable PROBLEMS Type Condition ICD9-CM Code VBH13-YZ Code Onset Dates Condition Status SNOMED Code Problem Tonsillar hypertrophy J35.1 Active 19001173 Problem Gastroesophageal reflux disease, esophagitis presence not specified K21.9 Active 749503091 Problem Excessive daytime sleepiness G47.19 Active 293160059448 Problem Elevated hemoglobin A1c R73.09 Active 090217668 Problem Hypercholesteremia E78.00 Active 12795769 Problem Dizziness R42 Active 614906590 Problem Essential hypertension I10 Active 39090566 Problem Depression with anxiety F41.8 Active 701757614 Problem Seasonal allergic rhinitis due to pollen J30.1 Active 59417261 Problem Sore throat J02.9 Active 787693497 Problem Anxiety F41.9 Active 71054366 Problem Apnea, not elsewhere classified R06.81 Active 1503803 Problem Snoring R06.83 Active 29200546 ALLERGIES No Known Allergies ENCOUNTERS Encounter Location Date Diagnosis [facility] [place] [address] [place] [address] Nov, [facility] [address] [place] [id number] [place] [address]82 Sep, Seasonal allergic rhinitis, unspecified trigger J30.2 [facility] [id number] [place] [address] -2070 10 Sep, 2017 Dysuria R30.0 and Acute cystitis without hematuria N30.00 [facility] [address] [place] [address] -4713 16 Jun, 2017 Nasopharyngitis acute J00 [facility] [place] [address] [place] [address]- 6529 Mar, Essential hypertension I10 ; Gastroesophageal reflux disease , esophagitis presence not specified K21.9 and Depression with anxiety F41.8 [place] [address] [address] Feb, [place] [address] [address] Jan, Essential hypertension I10 ; Gastroesophageal reflux disease , esophagitis presence not specified K21.9 and Anxiety F41.9 [place] [address] [address]- 5548 Jan, Essential hypertension I10 ; Seasonal allergic rhinitis due to pollen J30.1 ; Gastroesophageal reflux disease, esophagitis presence not specified K21.9 ; Excessive daytime sleepiness G47.19 ; Snoring R06.83 ; Anxiety F41.9 ; Decreased breath sounds at right lung base R09.89 ; Otalgia of left ear H92.02 and Tonsillar hypertrophy J35.1 [facility] [address] [address] Jan, Bronchitis J40 and Acute seasonal allergic rhinitis, unspecified trigger J30.2 [facility] [address] [address] December, Pharyngitis due to other organism J02.[address] [address] Nov, Scabies infestation B86 [place] [address] [address]324 Oct, [address] [address] 40[address] Oct, Dermatitis L30.[address] [address] 5[address] May, Routine health maintenance Z00.00 ; Excessive daytime sleepiness G47.19 ; Snoring R06.83 ; Acute non-recurrent frontal sinusitis J01.10 and Hx of candidiasis Z86.19 [place] [address] 67[address]- 8644 May, Seasonal allergic rhinitis due to pollen J30.1 ; Dizziness R42 ; Sore throat J02.9 ; Gastroesophageal reflux disease, esophagitis presence not specified K21.9 ; Snoring R06.83 ; Apnea, not elsewhere classified R06.81 ; Tonsillar hypertrophy J35.1 ; Excessive daytime sleepiness G47.19 and Anxiety F41.9 [facility] [place] [address] [address]47 Apr, Benign positional vertigo, unspecified laterality H81.10 [place] [address] [address]- 63[address] Jan, Urinary frequency R35.0 ; Essential hypertension I10 and Vaginal dryness N89.[address] [address]- [address] December, Unprotected sex Z72.51 and Vaginal discharge N89.8 [place] [address] [address] 19 Sep, 2015 Acute bacterial sinusitis J01.90 and Acute pharyngitis J02.9 [place] [address] [address]- 1327 11 Sep, 2015 Essential hypertension I10 ; Dizziness R42 ; FH: HTN ( hypertension) Z82.49 ; Family history of diabetes mellitus Z83.3 and Anxiety F41.9 [place] [address] [address] 6026 Sep, [address] [address]- 65[address] Sep, Essential hypertension I10 [address] [address]- 375[address] Sep, Essential hypertension I10 ; Dizziness R42 ; FH: HTN ( hypertension) Z82.49 and Family history of diabetes mellitus Z83.3 [facility] [place] [address] [address] 20 May, 2015 URI (upper respiratory infection) J06.9 [facility] [place] [id number] [address] 09 May, 2015 UTI (urinary tract infection) N39.0 and Vaginitis N76.0 [facility] [place] [address] [id number] [place] [address]40- 0628 10 Jan, 2015 Routine gynecological examination V72.31 ; Breast cancer screening V76.10 and Urinary frequency 788.41 [facility] [place] [address] [id number] [place] [address] 53442- 9093 14 Nov, 2014 [facility] [place] [id number] [place] [address] 34019- 9420 Nov, [facility] [place] [id number] [place] [address] 87319- 9679 Oct, [facility] [place] [address] [address]- 65[address] Oct, [facility] [place] [id number] [place] [address] 88578- 3393 Oct, [facility] [place] [address] [address] 41[address] Jan, [facility] [place] [id number] [address] December, [facility] [place] [address] [address]- 0[address] December, [facility] [place] [id number] [place] [address] [id number]- 4850 December, [facility] [place] [address] [address] Nov, [facility] [place] [id number] [place] [address] 33421- 0[address] Nov, [facility] [place] [facility] [address] [id number] [place] [address]- 8075 Nov, [facility] [place] [facility] [address] [facility] [id number] [address]- 0918 Oct, [facility] [place] [facility] [address] [facility] [id number] [place] [address]- 2266 Jun, [facility] [place] [facility] [address] [id number] [address]- 5860 Jun, [facility] [place] [facility] [address] [facility] [id number] [place] [address]- 5480 May, [facility] [place] [facility] [address] [facility] [id number] [place] [address]- 5034 May, [facility] [place] [facility] [address] [facility] [id number] [place] [address]- 0987 May, [facility] [place] [facility] [address] [id number] [address]- 7431 May, [facility] [place] [facility] [address] [place] [id number] [address]- 1065 May, [facility] [place] [facility] [address] [facility] [id number] [address]- 47[address] 08 May, 2012 [facility] [place] [facility] [address] [facility] [id number] [place] [address]- 4[address] May, [facility] [place] [facility] [address] [facility] [id number] [place] [address]- 1766 May, [facility] [place] [facility] [address] [facility] [id number] [place] [address]- 4754 Jan, [facility] [place] [facility] [address] [facility] [id number] [place] [address]- 0665 May, [facility] [place] [facility] [address] [facility] [id number] [place] [address]- 7151 May, [facility] [place] [facility] [address] [facility] [id number] [place] [address]- 6426 May, [facility] [place] [address] [facility] [id number] [place] [address]- 4566 May, [facility] [place] [address] [facility] [id number] [place] [address]- 5926 May, [facility] [place] [address] [facility] [id number] [place] [address]- 6059 Apr, [facility] [place] [address] [facility] [id number] [place] [address]- 5847 Mar, IMMUNIZATIONS No Known Immunizations SOCIAL HISTORY Never Assessed REASON FOR VISIT Blood Pressure f/u -NEYDA Childress, Out of all medications. PLAN OF CARE Activity Details Follow Up 3 Months, prn Reason:[facility] VITAL SIGNS Height 63 in 2017-02-10 Weight 214 lbs 2017-02-10 Temperature 98.6 degrees Fahrenheit 2017-02-10 Heart Rate 88 bpm 2017-02-10 Respiratory Rate 22 2017-02-10 BMI 37.90 kg/m2 2017-02-10 Blood pressure systolic 150 mmHg 2017-02-10 Blood pressure diastolic 90 mmHg 2017-02-10 MEDICATIONS Medication Instructions Dosage Frequency Start Date End Date Duration Status HydrOXYzine HCl 50 MG Orally every 6 hrs, prn itching 1 Oct, 90 days Active Omeprazole 20 mg Orally Once a day 1 capsules each evening 30 minutes before bed 24h May, 90 days Active Chlorthalidone 25 MG Orally Once a day 1 tablet 24h 90 days Active Loratadine 10 mg Orally Once a day 1 tablet 24h May, 90 days Active RESULTS Name Result Date Reference Range Xray : Chest (IN HOUSE) 2017-02-10 PROCEDURES Procedure Date Ordered Result Body Site CHEST X-RAY February 10, 2017 INSTRUCTIONS MEDICATIONS ADMINISTERED No Known Medications MEDICAL (GENERAL) HISTORY Type Description Date Medical History Hearing loss-having trouble hearing out of left ear d/t growth Medical History UTI Medical History Backache ever since she had epidurals Medical History Headache syndrome Medical History Cancer-treated for cervical cancer awhile back Surgical History Hysterectomy 2012 Surgical History Eye Surgery on nerves in both eyes Surgical History C sections x 5 Surgical History ACL/MCL/ fx right femur repair 11/2015 Hospitalization History surgery
--- OUTSIDE RECORDS SUMMARY | 2018-05-07 09:34 | XMS REPORT ---
Author Author LUCAS CUNHA [facility] eClinicalWorks Address Unknown Phone Unavailable Care Team Providers Care Sandwich Hand Name Role Phone LUCAS CUNHA CP Unavailable Allergies, Adverse Reactions, Alerts Substance Reaction Event Type N.K.D.A. Info Not Available Non Drug Allergy Problems Problem Type Condition Code Onset Dates Condition Status Assessment Vaginitis N76.0 Active Assessment UTI (urinary tract infection) N39.0 Active Medications Medication Code System Code Instructions Start Date End Date Status Dosage Bactrim DS NDC [address]-71 800-160 MG Orally 2 times a day May 23, 2015 May 28, 2015 1 tablet Diflucan NDC [address]-73 150 MG Orally May 23, 2015 1 tablet Cranberry NDC 0 405 MG Orally not defined Procedures Procedure Coding System Code Date URINE CULTURE/COLONY COUNT CPT-4 53880 May 23, 2015 Office Visit, Est Pt., Level 2 CPT-4 26273 May 23, 2015 URINALYSIS, AUTO, W/O SCOPE CPT-4 06052 May 23, 2015 Vital Signs Date/Time: May 23, 2015 Temperature 98.3 F Weight 214.5 lbs Height 63 in BMI 37.99 Index Blood Pressure Diastolic 85 mmHg Blood Pressure Systolic 130 mmHg Cardiac Monitoring Heart Rate 80 bpm Results Name Result Date Reference Range Unit Abnormality Flag CULTURE, URINE Summary Purpose eClinicalWorks Submission
--- OUTSIDE RECORDS SUMMARY | 2018-05-07 09:34 | XMS REPORT ---
Author Author NGOEVA He Organization [facility] Address [address] [place] [address] Care Team Providers Care Turn Out Worker Name Role Phone NGOEVA He Unavailable PROBLEMS Type Condition ICD9-CM Code DFP81-YG Code Onset Dates Condition Status SNOMED Code Problem Tonsillar hypertrophy J35.1 Active 54112470 Problem Gastroesophageal reflux disease, esophagitis presence not specified K21.9 Active 532176386 Problem Excessive daytime sleepiness G47.19 Active 141667724326 Problem Elevated hemoglobin A1c R73.09 Active 601276417 Problem Hypercholesteremia E78.00 Active 19934774 Problem Dizziness R42 Active 863211248 Problem Essential hypertension I10 Active 11524105 Problem Depression with anxiety F41.8 Active 555821405 Problem Seasonal allergic rhinitis due to pollen J30.1 Active 30980711 Problem Sore throat J02.9 Active 508875394 Problem Anxiety F41.9 Active 14915247 Problem Apnea, not elsewhere classified R06.81 Active 7388828 Problem Snoring R06.83 Active 99565484 ALLERGIES No Known Allergies ENCOUNTERS Encounter Location Date Diagnosis [facility] [id number] [place] [address]90 [address]131 20 Sep, 2017 Seasonal allergic rhinitis, unspecified trigger J30.2 [facility] [id number] [place] [address] 65775 -7273 10 Sep, 2017 Dysuria R30.0 and Acute cystitis without hematuria N30.00 [facility] [address] [address] Jun, Nasopharyngitis acute J00 [facility] [id number] [place] [address]- 2017 03 Mar, 2017 Essential hypertension I10 ; Gastroesophageal reflux disease , esophagitis presence not specified K21.9 and Depression with anxiety F41.8 [place] [address] [address]- [address] Feb, [place] [address] [place] [id number]- 481 Jan, Essential hypertension I10 ; Gastroesophageal reflux disease , esophagitis presence not specified K21.9 and Anxiety F41.9 [place] [address] [address]- 0344 Jan, Essential hypertension I10 ; Seasonal allergic rhinitis due to pollen J30.1 ; Gastroesophageal reflux disease, esophagitis presence not specified K21.9 ; Excessive daytime sleepiness G47.19 ; Snoring R06.83 ; Anxiety F41.9 ; Decreased breath sounds at right lung base R09.89 ; Otalgia of left ear H92.02 and Tonsillar hypertrophy J35.1 [facility] [place] [address] [address] Jan, Bronchitis J40 and Acute seasonal allergic rhinitis, unspecified trigger J30.2 [facility] [place] [address] [address] December, Pharyngitis due to other organism J02.8 [place] [address] [address]- 2[address] Nov, Scabies infestation B86 [place] [address] [address]- 0014 Oct, [place] [address] [address]- 3783 Oct, Dermatitis L30.9 [place] [address] [address]- 4163 May, Routine health maintenance Z00.00 ; Excessive daytime sleepiness G47.19 ; Snoring R06.83 ; Acute non-recurrent frontal sinusitis J01.10 and Hx of candidiasis Z86.19 [place] [address] [address]- 1981 May, Seasonal allergic rhinitis due to pollen J30.1 ; Dizziness R42 ; Sore throat J02.9 ; Gastroesophageal reflux disease, esophagitis presence not specified K21.9 ; Snoring R06.83 ; Apnea, not elsewhere classified R06.81 ; Tonsillar hypertrophy J35.1 ; Excessive daytime sleepiness G47.19 and Anxiety F41.9 [facility] [address] [address] Apr, Benign positional vertigo, unspecified laterality H81.10 [place] [address] [address]- 6263 Jan, Urinary frequency R35.0 ; Essential hypertension I10 and Vaginal dryness N89.8 [place] [address] [address]- 5528 December, Unprotected sex Z72.51 and Vaginal discharge N89.8 [facility] [address] [address] -1795 Sep, Acute bacterial sinusitis J01.90 and Acute pharyngitis J02.9 [place] [address] 77[address]- 1714 11 Sep, 2015 Essential hypertension I10 ; Dizziness R42 ; FH: HTN ( hypertension) Z82.49 ; Family history of diabetes mellitus Z83.3 and Anxiety F41.9 [place] [address] [address]- 7308 Sep, [place] [address] [address]- [address]70 Sep, Essential hypertension I10 [address] [address]- [address] 02 Sep, 2015 Essential hypertension I10 ; Dizziness R42 ; FH: HTN ( hypertension) Z82.49 and Family history of diabetes mellitus Z83.3 [place] [address] [place] [address]- 4123 20 May, 2015 URI (upper respiratory infection) J06.9 [facility] [address] [address]- 8[address] 09 May, 2015 UTI (urinary tract infection) N39.0 and Vaginitis N76.0 [facility] [address], [place] [address]- 6[address] 10 Jan, 2015 Routine gynecological examination V72.31 ; Breast cancer screening V76.10 and Urinary frequency 788.41 [facility] [address], [place] [address]- 267[address] 14 Nov, 2014 [facility] [address] [place] [address]11- 7220 Nov, [facility] [address], [place] [address]- 2639 Oct, [facility] [address] [id number] [address]- 5755 Oct, [facility] [address], [place] [address]- 1689 Oct, [facility] [address], [place] [address]- 4981 Jan, [facility] [address], [place] [address]- [address]16 December, [facility] [address], [place] [address]- 6579 December, [facility] [address], [place] [address]- 7135 December, [facility] [address], [place] [address]- 0697 Nov, [facility] [address], [place] [address]- 7915 Nov, [facility] [address], [place] [address]- 8144 Nov, [facility] [place] [facility] [address] [id number] [place] [address]- 9391 Oct, [facility] [place] [facility] [address] [facility] [id number], [place] [address]- 0326 Jun, [facility] [place] [facility] [address] [facility] [id number] [place] [address]- 5690 Jun, [facility] [place] [facility] [address] [id number], [place] [address]- 5017 May, [facility] [place] [facility] [id number] [place] [address], [place] [address]- 4872 May, [facility] [place] [facility] [address] [facility] [id number] [place] [address]- 5900 May, [facility] [place] [facility] [address] [facility] [id number], [place] [address]- 9419 May, [facility] [place] [facility] [address] [facility] [id number], [place] [address]- 7544 May, [facility] [place] [facility] [address] [facility] [id number], [place] [address]- 0188 May, [facility] [place] [facility] [address] [facility] [id number], [place] [address]- 0996 May, [facility] [place] [facility] [address] [facility] [id number], [place] [address]- [address] May, [facility] [place] [facility] [address] [facility] [id number], [place] [address]- 9100 Jan, [facility] [place] [facility] [address] [facility] [id number], [place] [address]- 0610 24 May, 2011 [facility] [place] [facility] [address] [facility] [id number], [place] [address]- 5273 May, [facility] [place] [facility] [address] [facility] [id number], [place] [address]- 8620 May, [facility] [place] [facility] [address] [facility] [id number] [place] [address] May, [facility] [address] [facility] [id number], [place] [address]- 0532 May, [facility] [address] [facility] [id number], [place] [address]- 9793 Apr, [facility] [address] [facility] [id number][place] [address] Mar, IMMUNIZATIONS No Known Immunizations SOCIAL HISTORY Never Assessed REASON FOR VISIT Depression fu -- solange bo PLAN OF CARE Activity Details Follow Up 3 Months, prn Reason:f/u depression/anxiety VITAL SIGNS Height 63 in 2017-03-17 Weight 213.0 lbs 2017-03-17 Temperature 98.0 degrees Fahrenheit 2017-03-17 BMI 37.73 kg/m2 2017-03-17 Blood pressure systolic 122 mmHg 2017-03-17 Blood pressure diastolic 76 mmHg 2017-03-17 MEDICATIONS Medication Instructions Dosage Frequency Start Date End Date Duration Status Loratadine 10 mg Orally Once a day 1 tablet 24h May, 90 days Active BusPIRone HCl 5 mg Orally 2 times a day prn 1 tablet twice a day Sep, 90 days Active HydrOXYzine HCl 50 MG Orally every 6 hrs, prn itching 1 Oct, 90 days Active Chlorthalidone 25 MG Orally Once a day 1 tablet 24h 90 days Active Metformin HCl 500 mg Orally Once a day with evening meal 1 tablet Feb Active Omeprazole 20 mg Orally Once a day 1 capsules each evening 30 minutes before bed 24h May, 90 days Active RESULTS No [...]
--- OUTSIDE RECORDS SUMMARY | 2018-05-07 09:34 | XMS REPORT ---
Author Author NGOEVA He Organization [facility] Address [address] [place] [address] Care Team Providers Care Protective Clothing Issuer Name Role Phone NGOCORDELL HeELE Unavailable PROBLEMS Type Condition ICD9-CM Code XEN74-TS Code Onset Dates Condition Status SNOMED Code Problem Tonsillar hypertrophy J35.1 Active 64856070 Problem Gastroesophageal reflux disease, esophagitis presence not specified K21.9 Active 034194850 Problem Excessive daytime sleepiness G47.19 Active 201946753577 Problem Elevated hemoglobin A1c R73.09 Active 477185444 Problem Hypercholesteremia E78.00 Active 51632969 Problem Dizziness R42 Active 199602429 Problem Essential hypertension I10 Active 74120101 Problem Depression with anxiety F41.8 Active 015073784 Problem Seasonal allergic rhinitis due to pollen J30.1 Active 42413366 Problem Sore throat J02.9 Active 214653877 Problem Anxiety F41.9 Active 54695486 Problem Apnea, not elsewhere classified R06.81 Active 3433261 Problem Snoring R06.83 Active 43773436 ALLERGIES No Information ENCOUNTERS Encounter Location Date Diagnosis [facility] [address] [id number] [place] [address] Nov, [facility] [id number] [address]21 [address]99 Sep, Seasonal allergic rhinitis, unspecified trigger J30.2 [facility] [id number] [address]86 [address]2918 10 Sep, 2017 Dysuria R30.0 and Acute cystitis without hematuria N30.00 [facility] [id number] [address]89 [address]8940 16 Jun, 2017 Nasopharyngitis acute J00 [facility] [id number] [address]111- 6588 Mar, Essential hypertension I10 ; Gastroesophageal reflux disease , esophagitis presence not specified K21.9 and Depression with anxiety F41.8 [place] [address] [address] Feb, [place] [address] [address]26- [address]84 Jan, Essential hypertension I10 ; Gastroesophageal reflux disease , esophagitis presence not specified K21.9 and Anxiety F41.9 [place] [address] [address]- 59[address] Jan, Essential hypertension I10 ; Seasonal allergic rhinitis due to pollen J30.1 ; Gastroesophageal reflux disease, esophagitis presence not specified K21.9 ; Excessive daytime sleepiness G47.19 ; Snoring R06.83 ; Anxiety F41.9 ; Decreased breath sounds at right lung base R09.89 ; Otalgia of left ear H92.02 and Tonsillar hypertrophy J35.1 [facility] [place] [address] [address] Jan, Bronchitis J40 and Acute seasonal allergic rhinitis, unspecified trigger J30.2 [facility] [address] [address] December, Pharyngitis due to other organism J02.[address] [address] Nov, Scabies infestation B86 [place] [address] [address]- 9428 Oct, [address] [address] Oct, Dermatitis L30.[address] [address]- [address] May, Routine health maintenance Z00.00 ; Excessive daytime sleepiness G47.19 ; Snoring R06.83 ; Acute non-recurrent frontal sinusitis J01.10 and Hx of candidiasis Z86.19 [place] [address] [address]16- 93[address] 06 May, 2016 Seasonal allergic rhinitis due to pollen J30.1 ; Dizziness R42 ; Sore throat J02.9 ; Gastroesophageal reflux disease, esophagitis presence not specified K21.9 ; Snoring R06.83 ; Apnea, not elsewhere classified R06.81 ; Tonsillar hypertrophy J35.1 ; Excessive daytime sleepiness G47.19 and Anxiety F41.9 [facility] [address] [address] Apr, Benign positional vertigo, unspecified laterality H81.10 [place] [address] [address]- 73[address] Jan, Urinary frequency R35.0 ; Essential hypertension I10 and Vaginal dryness N89.[address] [address]- [address] December, Unprotected sex Z72.51 and Vaginal discharge N89.8 [place] [address] [address] 19 Sep, 2015 Acute bacterial sinusitis J01.90 and Acute pharyngitis J02.9 [place] [address] [address]- 7015 11 Sep, 2015 Essential hypertension I10 ; Dizziness R42 ; FH: HTN ( hypertension) Z82.49 ; Family history of diabetes mellitus Z83.3 and Anxiety F41.9 [place] [address] [address]- 5581 Sep, [address] [address]- [address] Sep, Essential hypertension I10 [address] 8[address]- [address] Sep, Essential hypertension I10 ; Dizziness R42 ; FH: HTN ( hypertension) Z82.49 and Family history of diabetes mellitus Z83.3 [facility] [address] [address] 20 May, 2015 URI (upper respiratory infection) J06.9 [facility] [address] [address] 09 May, 2015 UTI (urinary tract infection) N39.0 and Vaginitis N76.0 [facility] [id number] [address] 93156- 8841 10 Jan, 2015 Routine gynecological examination V72.31 ; Breast cancer screening V76.10 and Urinary frequency 788.41 [facility] [id number] [address] 02879- 1076 14 Nov, 2014 [facility] [id number] [address] 97342- 6563 Nov, [facility] [id number] [address] 35722- 3484 Oct, [facility] [address] [address] 4[address] Oct, [facility] [address], [place] [address] 59[address] Oct, [facility] [address] [place] [address] 88[address] Jan, [facility] [address] [address] 9[address] December, [facility] [address] [place] [address] 9[address] December, [facility] [id number] [address] December, [facility] [address] [address] Nov, [facility] [id number] [address] 83272- 7211 Nov, [facility] [place] [facility] [address] [id number] [place] [address]- [address] Nov, [facility] [place] [facility] [address] [id number] [place] [address]- 7324 Oct, [facility] [place] [facility] [address] [facility] [id number] [place] [address]- 0561 Jun, [facility] [place] [facility] [address] [id number] [place] [address]- 9555 Jun, [facility] [place] [facility] [address] [id number] [place] [address]- 8140 May, [facility] [place] [facility] [address] [id number] [place] [address]- 2742 May, [facility] [place] [facility] [address] [facility] [id number] [place] [address]- 8399 May, [facility] [place] [facility] [address] [facility] [id number] [place] [address]- 7826 May, [facility] [place] [facility] [address] [facility] [id number] [place] [address]- 1138 May, [facility] [place] [facility] [address] [facility] [id number] [place] [address]- 6205 May, [facility] [place] [facility] [address] [facility] [id number] [address] 65[address] May, [facility] [place] [facility] [address] [facility] [id number], [place] [address]- 33[address] May, [facility] [place] [facility] [address] [id number] [place] [address]- 8996 Jan, [facility] [place] [facility] [address] [facility] [id number] [place] [address]- 8964 May, [facility] [place] [facility] [address] [facility] [id number] [place] [address]- 0424 May, [facility] [place] [facility] [address] [facility] [id number] [place] [address]- 65[address] May, [facility] [address] [facility] [id number], [place] [address]- 6[address] May, [facility] [address] [facility] [id number], [place] [address]- 1379 May, [facility] [address] [facility] [id number] [address]- [address] Apr, [facility] [address] [facility] [id number], [place] [address]- 27[address] Mar, IMMUNIZATIONS No Known Immunizations SOCIAL HISTORY Never Assessed REASON FOR VISIT Lab (walk-in)--[facility] OF CARE VITAL SIGNS MEDICATIONS Unknown Medications RESULTS Name Result Date Reference Range THYROID ANALYZER 2017-02-11 TSH 1.020 0.450-4.500 A1C 2017-02-11 Hemoglobin A1c 6.1 4.8-5.6 CBC 2017-02-11 WBC 6.6 3.4-10.8 RBC 4.90 3.77-5.28 Hemoglobin 14.5 11.1-15.9 Hematocrit 43.5 34.0-46.6 MCV 89 79-97 MCH 29.6 26.6-33.0 MCHC 33.3 31.5-35.7 RDW 13.2 12.3-15.4 Platelets 315 150-379 Neutrophils 52 Lymphs 34 Monocytes 10 Eos 2 Basos 1 Neutrophils (Absolute) 3.5 1.4-7.0 Lymphs (Absolute) 2.3 0.7-3.1 Monocytes(Absolute) 0.7 0.1-0.9 Eos (Absolute) 0.1 0.0-0.4 Baso (Absolute) 0.0 0.0-0.2 Immature Granulocytes 1 Immature Grans (Abs) 0.0 0.0-0.1 LIPID PANEL 2017-02-11 Cholesterol, Total 204 100-199 Triglycerides 81 0-149 HDL Cholesterol 87 >39 VLDL Cholesterol Rj 16 5-40 LDL Cholesterol Calc 101 0-99 CMP 2017-02-11 Glucose, Serum 92 65-99 BUN 13 6-24 Creatinine, Serum 0.86 0.57-1.00 eGFR If NonAfricn Am 85 >59 eGFR If Africn Am 98 >59 BUN/Creatinine Ratio 15 9-23 Sodium, Serum 138 134-144 Potassium, Serum 4.6 3.5-5.2 Chloride, Serum 96 96-106 Carbon Dioxide, Total 25 18-29 Calcium, Serum 9.6 8.7-10.2 Protein, Total, Serum 7.4 6.0-8.5 Albumin, Serum 4.4 3.5-5.5 Globulin, Total 3.0 1.5-4.5 A/G Ratio 1.5 1.2-2.2 Bilirubin, Total 0.4 0.0-1.2 Alkaline Phosphatase, S 92 39-117 AST (SGOT) 28 0-40 ALT (SGPT) 37 0-32 PROCEDURES Procedure Date Ordered Result Body Site ASSAY THYROID STIM HORMONE February 11, 2017 GLYCATED HEMOGLOBIN TEST February 11, 2017 LIPID PANEL February 11, 2017 COMPLETE CBC W/AUTO DIFF WBC February 11, 2017 VENIPUNCT, ROUTINE* February 11, 2017 COMPREHEN METABOLIC PANEL February 11, 2017 INSTRUCTIONS MEDICATIONS ADMINISTERED No Known Medications [...]
--- OUTSIDE RECORDS SUMMARY | 2018-05-07 09:34 | XMS REPORT ---
Author Author TYRA MILLER Organization [facility] Address [address] [place] [address] Care Team Providers Care Lease Picker Name Role Phone GONZALEZKRIS LEONGTYRA HUBBARD Unavailable PROBLEMS Type Condition ICD9-CM Code OHL98-UB Code Onset Dates Condition Status SNOMED Code Problem Depression with anxiety F41.8 Active 969620673 Problem Gastroesophageal reflux disease, esophagitis presence not specified K21.9 Active 458846825 Problem Essential hypertension I10 Active 39461491 Problem Hypercholesteremia E78.00 Active 36606181 Problem Seasonal allergic rhinitis due to pollen J30.1 Active 98438857 Problem Anxiety F41.9 Active 20210429 ALLERGIES No Known Allergies ENCOUNTERS Encounter Location Date Diagnosis [facility] [address] [address] Apr, [address] [address] Feb, Essential hypertension I10 ; Hypercholesteremia E78.00 ; Pre -diabetes R73.03 and Depression with anxiety F41.8 [facility] [address] [place] [id number] [place] [address]- 1495 Feb, Essential hypertension I10 ; Pre-diabetes R73.03 ; BMI 40.0- 44.9, adult Z68.41 ; Depression with anxiety F41.8 ; Seasonal allergic rhinitis due to pollen J30.1 ; Hypercholesteremia E78.00 and Anxiety F41.9 [facility] [address] [address] 08 Jan, 2018 Left ear impacted cerumen H61.22 ; Sore throat J02.9 ; BMI 40.0-44.9, adult Z68.41 and Viral pharyngitis J02.9 [facility] [place] [id number] [place] [address] -[address]83 Jan, Dysuria R30.0 ; Vaginal discharge N89.8 and BMI 40.0-44.9, adult Z68.41 [facility] [address] [address] Jan, Dysuria R30.0 ; Urgency of urination R39.15 ; Frequency of urination R35.0 and Type 2 diabetes mellitus without complication, without long- term current use of insulin E11.9 [facility] [address] [address] Sep, Seasonal allergic rhinitis, unspecified trigger J30.2 [facility] [address] [address] 10 Sep, 2017 Dysuria R30.0 and Acute cystitis without hematuria N30.00 [facility] [address] [address] Jun, Nasopharyngitis acute J00 [address] [address]- [address] Mar, Essential hypertension I10 ; Gastroesophageal reflux disease , esophagitis presence not specified K21.9 and Depression with anxiety F41.[address] [address]- [address] Feb, [address] [address]- 8060 Jan, Essential hypertension I10 ; Gastroesophageal reflux disease , esophagitis presence not specified K21.9 and Anxiety F41.[address] [address]- [address] Jan, Essential hypertension I10 ; Seasonal allergic rhinitis due to pollen J30.1 ; Gastroesophageal reflux disease, esophagitis presence not specified K21.9 ; Excessive daytime sleepiness G47.19 ; Snoring R06.83 ; Anxiety F41.9 ; Decreased breath sounds at right lung base R09.89 ; Otalgia of left ear H92.02 and Tonsillar hypertrophy J35.1 [facility] [place] [address] [address] Jan, Bronchitis J40 and Acute seasonal allergic rhinitis, unspecified trigger J30.2 [facility] [address] [address] December, Pharyngitis due to other organism J02.8 [place] [address] [address]- [address] Nov, Scabies infestation B[address] [address]- [address] Oct, [place] [address] [address]- [address]247 Oct, Dermatitis L30.[address] [address]- [address] May, Routine health maintenance Z00.00 ; Excessive daytime sleepiness G47.19 ; Snoring R06.83 ; Acute non-recurrent frontal sinusitis J01.10 and Hx of candidiasis Z86.[address] [address]- 9570 May, Seasonal allergic rhinitis due to pollen J30.1 ; Dizziness R42 ; Sore throat J02.9 ; Gastroesophageal reflux disease, esophagitis presence not specified K21.9 ; Snoring R06.83 ; Apnea, not elsewhere classified R06.81 ; Tonsillar hypertrophy J35.1 ; Excessive daytime sleepiness G47.19 and Anxiety F41.9 [facility] IN [address] [address] Apr, Benign positional vertigo, unspecified laterality H81.[address] [address]- [address] Jan, Urinary frequency R35.0 ; Essential hypertension I10 and Vaginal dryness N89.8 [facility] [address] [place] [id number] [place] [address] 24353- 0876 December, Unprotected sex Z72.51 and Vaginal discharge N89.8 [facility] IN [facility] [address] [place] [id number] [place] [address] -[address] 19 Sep, 2015 Acute bacterial sinusitis J01.90 and Acute pharyngitis J02.9 [place] [address] [address]- [address] 11 Sep, 2015 Essential hypertension I10 ; Dizziness R42 ; FH: HTN ( hypertension) Z82.49 ; Family history of diabetes mellitus Z83.3 and Anxiety F41.9 [place] [address] [address]- [address] Sep, [place] [address] [address]- 3595 Sep, Essential hypertension I10 [place] [address] [address]- [address] Sep, Essential hypertension I10 ; Dizziness R42 ; FH: HTN ( hypertension) Z82.49 and Family history of diabetes mellitus Z83.3 [place] [address] [address] [id number] [place] [address] 36[address]- 0445 20 May, 2015 URI (upper respiratory infection) J06.9 [place] [address] [address]- [address] 09 May, 2015 UTI (urinary tract infection) N39.0 and Vaginitis N76.0 [place] [address] [address]- 275[address] 10 Jan, 2015 Routine gynecological examination V72.31 ; Breast cancer screening V76.10 and Urinary frequency 788.41 [place] [address] [address]- [address] 14 Nov, 2014 [place] [address] [address]- [address] Nov, [facility] [address] [id number] [place] [address]- 6999 Oct, [facility] [place] [facility] [address] [id number] [place] [address]- 2280 Oct, [facility] [place] [facility] [address] [id number] [place] [address]- 6953 Oct, [facility] [place] [facility] [address] [id number] [place] [address]- 8595 Jan, [facility] [place] [facility] [address] [id number] [place] [address]- 5137 December, [facility] [place] [facility] [address] [id number] [place] [address]- 2322 December, [facility] [address] [id number] [place] [address]- 9761 December, [facility] [place] [facility] [address] [id number] [place] [address]- 6695 Nov, [facility] [place] [facility] [address] [id number] [place] [address]- 7838 Nov, [facility] [place] [facility] [address] [id number] [place] [address]- 8785 Nov, [facility] [place] [facility] [address] [id number] [place] [address]- 2826 Oct, [facility] [place] [facility] [address] [id number] [place] [address]- 9265 Jun, [facility] [place] [facility] [address] [id number] [place] [address]- 1233 Jun, [facility] [place] [facility] [address] [id number] [place] [address] May, [facility] [place] [facility] [address] [id number] [place] [address]- 0971 May, [facility] [place] [facility] [address] [facility] [id number] [address]- [address] 15 May, 2012 [facility] [address] [facility] [id number] [address]- 0496 May, [facility] [address] [facility] [id number] [address]46 May, [facility] [address] [facility] [id number] [address]- 69[address] May, [facility] [address] [facility] [id number] [address]- 5416 May, [facility] [address] [place] [address]- 3[address] May, [facility] [address] [facility] [id number] [address]- 6226 Jan, [facility] [address] [address]- 3825 May, [facility] [address] [address] May, [facility] [address] [address]- 47[address] May, [facility] [address] [address]- 7[address] May, [facility] [address] [address]- 9516 May, [facility] [address] [place] [id number] [address]- 300[address] Apr, [facility] [address] [address]- [address] Mar, IMMUNIZATIONS No Known Immunizations SOCIAL HISTORY Never Assessed REASON FOR VISIT dysuria, feels like her bladder wont empty completely. reports she had unprotected sex a week ago...wants std testing.denies vaginal itching, discharge , et odor. [email or web address] PLAN OF CARE Activity Details Follow Up prn Reason: VITAL SIGNS Height 63 in 2018-01-13 Weight 224.8 lbs 2018-01-13 Temperature 98.3 degrees Fahrenheit 2018-01-13 Heart Rate 92 bpm 2018-01-13 Respiratory Rate 20 2018-01-13 BMI 39.82 kg/m2 2018-01-13 Blood pressure systolic 124 mmHg 2018-01-13 Blood pressure diastolic 70 mmHg 2018-01-13 MEDICATIONS Medication Instructions Dosage Frequency Start Date End Date Duration Status Flonase 50 MCG/ACT Nasally Once a day 1 spray in each nostril 24h 20 Sep, 2017 30 day(s) Not-Taking HydrOXYzine HCl 50 MG Orally every 6 hrs, prn itching 1 Oct, 90 days Not-Taking Sudafed 12 Hour 120 MG Orally every 12 hrs 1 tablet as needed 12h 10 Not-Taking BusPIRone HCl 5 mg Orally 2 times a day prn 1 tablet twice a day 11 Sep, 2015 90 days Active Chlorthalidone 25 MG Orally Once a day 1 tablet 24h 90 days Active Omeprazole 20 mg Orally Once a day 1 capsules each evening 30 minutes before bed 24h May, 90 days Not-Taking Metformin HCl 500 mg Orally Once a day with evening meal 1 tablet Feb Active Loratadine 10 mg Orally Once a day 1 tablet 24h May, 90 days Active RESULTS No Results PROCEDURES Procedure Date Ordered Result Body Site URINALYSIS, AUTO, W/O SCOPE January 13, 2018 Bacterial Vaginosis In House January 13, 2018 No Charge January 13, 2018 TRICHOMONAS ASSAY W/OPTIC January 13, 2018 CULTURE, BACTERIA, OTHER January 13, 2018 INSTRUCTIONS MEDICATIONS ADMINISTERED No Known Medications [...]
--- OUTSIDE RECORDS SUMMARY | 2018-05-07 09:35 | XMS REPORT ---
Author Author [employer] Organization [employer] Address Unknown Phone Unavailable Care Team Providers Care Supervisor Lump Room Name Role Phone [employer] CP Unavailable Allergies, Adverse Reactions, Alerts Substance Reaction Event Type N.K.D.A. Info Not Available Non Drug Allergy Problems Problem Type Condition Code Onset Dates Condition Status Problem Anxiety F41.9 Active Problem Snoring R06.83 Active Problem Apnea, not elsewhere classified R06.81 Active Problem Acute non-recurrent frontal sinusitis J01.10 Active Problem Seasonal allergic rhinitis due to pollen J30.1 Active Problem Routine health maintenance Z00.00 Active Problem Excessive daytime sleepiness G47.19 Active Problem Sore throat J02.9 Active Problem Gastroesophageal reflux disease, esophagitis presence not specified K21.9 Active Problem Tonsillar hypertrophy J35.1 Active Assessment Acute non-recurrent frontal sinusitis J01.10 Active Assessment Snoring R06.83 Active Assessment Hx of candidiasis Z86.19 Active Problem Essential hypertension I10 Active Problem Family history of diabetes mellitus Z83.3 Active Assessment Excessive daytime sleepiness G47.19 Active Problem FH: HTN (hypertension) Z82.49 Active Assessment Routine health maintenance Z00.00 Active Problem Dizziness R42 Active Medications Medication Code System Code Instructions Start Date End Date Status Dosage BusPIRone HCl [facility] [address]-92 5 mg Orally 2 times a day Sep 25, 2015 1/2 to 1 tablet Omeprazole [facility] [address]-20 20 mg Orally Once a day May 20, 2016 1 capsules each evening 30 minutes before bed Augmentin [facility] [address]-79 875-125 MG Orally every 12 hrs Jun 03, 2016 Jun 13, 2016 1 tablet Meclizine HCl [facility] [address]-11 25 MG Orally 3 times a day, prn May 04, 2016 1 tablet as needed Loratadine [facility] [address]-98 10 mg Orally Once a day May 20, 2016 1 tablet Tums [facility] [address]-88 500 MG Orally Four times a day 1 tablet Tylenol 8 Hour [facility] [address]-81 650 MG Orally every 8 hrs 1 tablet as needed Diflucan [facility] [address]-99 150 MG Orally Once a day Jun 03, 2016 1 tablet today and repeat in 10 days Procedures Procedure Coding System Code Date Office Visit, Est Pt., Level 3 CPT-4 34853 Jun 03, 2016 Vital Signs Date/Time: Jun 03, 2016 Cardiac Monitoring Heart Rate 80 bpm Weight 212 lbs Height 63 in BMI 37.55 Index Blood Pressure Diastolic 78 mmHg Blood Pressure Systolic 132 mmHg Results No Known Results Summary Purpose [employer] Submission
--- OUTSIDE RECORDS SUMMARY | 2018-05-07 09:35 | XMS REPORT ---
Author Author EVA [employer] Organization [employer] Address Unknown Phone Unavailable Care Team Providers Care Senior Software Developer Name Role Phone [employer] CP Unavailable Allergies, Adverse Reactions, Alerts Substance Reaction Event Type N.K.D.A. Info Not Available Non Drug Allergy Problems Problem Type Condition Code Onset Dates Condition Status Problem FH: HTN (hypertension) Z82.49 Active Problem Anxiety F41.9 Active Problem Dizziness R42 Active Problem Gastroesophageal reflux disease, esophagitis presence not specified K21.9 Active Assessment Anxiety F41.9 Active Problem Tonsillar hypertrophy J35.1 Active Problem Seasonal allergic rhinitis due to pollen J30.1 Active Problem Snoring R06.83 Active Problem Apnea, not elsewhere classified R06.81 Active Problem Excessive daytime sleepiness G47.19 Active Problem Sore throat J02.9 Active Assessment Apnea, not elsewhere classified R06.81 Active Assessment Snoring R06.83 Active Assessment Excessive daytime sleepiness G47.19 Active Assessment Tonsillar hypertrophy J35.1 Active Assessment Dizziness R42 Active Assessment Seasonal allergic rhinitis due to pollen J30.1 Active Assessment Gastroesophageal reflux disease, esophagitis presence not specified K21.9 Active Problem Essential hypertension I10 Active Assessment Sore throat J02.9 Active Problem Family history of diabetes mellitus Z83.3 Active Medications Medication Code System Code Instructions Start Date End Date Status Dosage Loratadine [facility] [address]-07 10 mg Orally Once a day May 20, 2016 1 tablet BusPIRone HCl [facility] [address]-84 5 mg Orally 2 times a day Sep 25, 2015 1/2 to 1 tablet Tylenol 8 Hour [facility] [address]-32 650 MG Orally every 8 hrs 1 tablet as needed Tums [facility] [address]-81 500 MG Orally Four times a day 1 tablet Omeprazole [facility] [address]-22 20 mg Orally Once a day May 20, 2016 1 capsules each evening 30 minutes before bed Meclizine HCl [facility] [address]-55 25 MG Orally 3 times a day, prn May 04, 2016 1 tablet as needed Chlorthalidone [facility] [address]-85 25 MG Orally Once a day 1 tablet Procedures Procedure Coding System Code Date Office Visit, Augustina Pt., Level 3 CPT-4 44794 May 20, 2016 DEPO MEDROL 80 MG/ML CPT-4 J1040 May 20, 2016 STREP A ASSAY W/OPTIC CPT-4 27238 May 20, 2016 THER/PROPH/DIAG INJ, SC/IM CPT-4 10766 May 20, 2016 Vital Signs Date/Time: May 20, 2016 Cardiac Monitoring Heart Rate 76 bpm Weight 213.0 lbs Height 63 in BMI 37.73 Index Blood Pressure Diastolic 70 mmHg Blood Pressure Systolic 128 mmHg Results Name Result Date Reference Range Unit Abnormality Flag STREP A (IN HOUSE) ----STREP A Negative [id number] ----Control + [id number] ----Lot # [id number] ----Exp date 01/27/201820160520 Summary Purpose eClinicalWorks Submission
--- OUTSIDE RECORDS SUMMARY | 2018-05-07 09:35 | XMS REPORT ---
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 Clerk Name Role Phone SHANTA WREN Unavailable PROBLEMS Type Condition ICD9-CM Code FCK04-HR Code Onset Dates Condition Status SNOMED Code Problem Tonsillar hypertrophy J35.1 Active 28508857 Problem Gastroesophageal reflux disease, esophagitis presence not specified K21.9 Active 754381203 Problem Excessive daytime sleepiness G47.19 Active 629286709089 Problem Elevated hemoglobin A1c R73.09 Active 690615426 Problem Hypercholesteremia E78.00 Active 10598978 Problem Dizziness R42 Active 659246576 Problem Essential hypertension I10 Active 10296043 Problem Depression with anxiety F41.8 Active 628241197 Problem Seasonal allergic rhinitis due to pollen J30.1 Active 68180403 Problem Sore throat J02.9 Active 276912296 Problem Anxiety F41.9 Active 55538597 Problem Apnea, not elsewhere classified R06.81 Active 8518949 Problem Snoring R06.83 Active 55572028 ALLERGIES No Known Allergies ENCOUNTERS Encounter Location Date Diagnosis [facility] [id number] [place] [address] Nov, [facility] [id number] [place] [address]757 Sep, Seasonal allergic rhinitis, unspecified trigger J30.2 [facility] [id number] [place] [address] 10 Sep, 2017 Dysuria R30.0 and Acute cystitis without hematuria N30.00 [facility] [id number] [place] [address] 16 Jun, 2017 Nasopharyngitis acute J00 [facility] [address] [address] Mar, Essential hypertension I10 ; Gastroesophageal reflux disease , esophagitis presence not specified K21.9 and Depression with anxiety F41.8 [place] [address] [address] Feb, [place] [address] [address] Jan, Essential hypertension I10 ; Gastroesophageal reflux disease , esophagitis presence not specified K21.9 and Anxiety F41.9 [place] [address] [address] Jan, Essential hypertension I10 ; Seasonal allergic rhinitis due to pollen J30.1 ; Gastroesophageal reflux disease, esophagitis presence not specified K21.9 ; Excessive daytime sleepiness G47.19 ; Snoring R06.83 ; Anxiety F41.9 ; Decreased breath sounds at right lung base R09.89 ; Otalgia of left ear H92.02 and Tonsillar hypertrophy J35.1 [facility] WALK IN [facility] [address] [address] Jan, Bronchitis J40 and Acute seasonal allergic rhinitis, unspecified trigger J30.2 [facility] WALK IN [address] [address] December, Pharyngitis due to other organism J02.8 [place] [address] [address]861 Nov, Scabies infestation B86 [place] [address] 9[address]93- 7497 Oct, [address] [address] Oct, Dermatitis L30.9 [place] [address] [address]- 450[address] May, Routine health maintenance Z00.00 ; Excessive daytime sleepiness G47.19 ; Snoring R06.83 ; Acute non-recurrent frontal sinusitis J01.10 and Hx of candidiasis Z86.19 [place] [address] [address]- 89[address] May, Seasonal allergic rhinitis due to pollen J30.1 ; Dizziness R42 ; Sore throat J02.9 ; Gastroesophageal reflux disease, esophagitis presence not specified K21.9 ; Snoring R06.83 ; Apnea, not elsewhere classified R06.81 ; Tonsillar hypertrophy J35.1 ; Excessive daytime sleepiness G47.19 and Anxiety F41.9 [facility] WALK IN [facility] [address] [address] Apr, Benign positional vertigo, unspecified laterality H81.10 [place] [address] 63950- [address]604 Jan, Urinary frequency R35.0 ; Essential hypertension I10 and Vaginal dryness N89.8 [place] [address] [address]- 10[address] December, Unprotected sex Z72.51 and Vaginal discharge N89.8 [facility] [address] [address] 19 Sep, 2015 Acute bacterial sinusitis J01.90 and Acute pharyngitis J02.9 [place] [address] [address]23- 4782 11 Sep, 2015 Essential hypertension I10 ; Dizziness R42 ; FH: HTN ( hypertension) Z82.49 ; Family history of diabetes mellitus Z83.3 and Anxiety F41.9 [place] [address] 7[address] 5665 Sep, [address] [address] 7127 Sep, Essential hypertension I10 [place] [address] [address] 0828 Sep, Essential hypertension I10 ; Dizziness R42 ; FH: HTN ( hypertension) Z82.49 and Family history of diabetes mellitus Z83.3 [facility] [address] [address] 20 May, 2015 URI (upper respiratory infection) J06.9 [facility] [id number] [address] 09 May, 2015 UTI (urinary tract infection) N39.0 and Vaginitis N76.0 [facility] [id number] [place] [address] 48[address] 10 Jan, 2015 Routine gynecological examination V72.31 ; Breast cancer screening V76.10 and Urinary frequency 788.41 [facility] [id number] [place] [address]3608- 6118 Nov, [facility] [id number] [place] [address] 08397- 8133 Nov, [facility] [id number] [place] [address] 79019- 0195 Oct, [facility] [id number] [address] Oct, [facility] [id number] [place] [address] 86455- 4212 Oct, [facility] [address] [address] Jan, [facility] [address] [place] [address]33- 7322 December, [facility] [address] [address] December, [facility] [id number] [place] [address] [id number]- 9442 December, [facility] [address] [address] Nov, [facility] [id number] [place] [address], [place] [address]- [address] Nov, [facility] [place] [facility] [address] [id number] [place] [address] 0[address] Nov, [facility] [place] [facility] [address] [id number] [place] [address]- 8542 Oct, [facility] [place] [facility] [address] [id number] [place] [address]- 5565 Jun, [facility] [place] [facility] [address] [id number] [place] [address]- 4076 Jun, [facility] [place] [facility] [address] [id number] [place] [address]- 8406 May, [facility] [place] [facility] [address] [id number] [place] [address]- 1411 16 May, 2012 [facility] [place] [facility] [address] [id number] [place] [address]- 3353 May, [facility] [place] [facility] [address] [id number] [place] [address]- 7020 15 May, 2012 [facility] [place] [facility] [address] [id number] [place] [address]- 8206 May, [facility] [place] [facility] [address] [facility] [id number] [place] [address]- 8988 08 May, 2012 [facility] [place] [facility] [address] [id number] [place] [address]- 3331 May, [facility] [place] [facility] [address] [id number] [place] [address]- 3929 May, [facility] [place] [facility] [address] [id number] [place] [address]- 8506 Jan, [facility] [place] [facility] [address] [facility] [id number] [place] [address]- 5626 24 May, 2011 [facility] [place] [facility] [address] [facility] [id number] [place] [address]- 4252 May, [facility] [place] [facility] [address] [facility] [id number], [place] [address] 14[address] May, [facility] [address] [facility] [id number], [place] [address] 21[address] May, [facility] [address] [facility] [id number], [place] [address] 5[address] May, [facility] [address] [facility] [id number], [place] [address] Apr, [facility] [address] [facility] [id number], [place] [address] Mar, IMMUNIZATIONS No Known Immunizations SOCIAL HISTORY Never Assessed REASON FOR VISIT sore throat/ ear pain- chest congestion started a few weeks ago- seen Walk IN [facility] PLAN OF CARE Activity Details Follow Up prn Reason: VITAL SIGNS Height 63 in 2017-02-03 Weight 209.6 lbs 2017-02-03 Temperature 97.9 degrees Fahrenheit 2017-02-03 Heart Rate 80 bpm 2017-02-03 Respiratory Rate 20 2017-02-03 BMI 37.12 kg/m2 2017-02-03 Blood pressure systolic 142 mmHg 2017-02-03 Blood pressure diastolic 100 mmHg 2017-02-03 MEDICATIONS Medication Instructions Dosage Frequency Start Date End Date Duration Status Tylenol 8 Hour 650 MG Orally every 8 hrs 1 tablet as needed 8h Active PredniSONE 20 MG Orally Once a day 2 tablet 24h Jan, Jan, 5 days Active Azithromycin 250 MG Orally Once a day 2 tablets on the first day, then 1 tablet daily for 4 days 24h Jan, Jan, 5 day(s) Active RESULTS No Results PROCEDURES No Known [...]
--- OUTSIDE RECORDS SUMMARY | 2018-05-07 09:35 | XMS REPORT ---
Author Author NGOEVA He Organization [facility] Address [address] [place] [address] Care Team Providers Care Equipment Operation Instructor Name Role Phone NGOCORDELL HeELE Unavailable PROBLEMS Type Condition ICD9-CM Code NBQ31-WO Code Onset Dates Condition Status SNOMED Code Problem Tonsillar hypertrophy J35.1 Active 80596068 Problem Gastroesophageal reflux disease, esophagitis presence not specified K21.9 Active 660773676 Problem Excessive daytime sleepiness G47.19 Active 384186790083 Problem Elevated hemoglobin A1c R73.09 Active 273434677 Problem Hypercholesteremia E78.00 Active 48682806 Problem Dizziness R42 Active 185459707 Problem Essential hypertension I10 Active 12540311 Problem Depression with anxiety F41.8 Active 179272468 Problem Seasonal allergic rhinitis due to pollen J30.1 Active 32936856 Problem Sore throat J02.9 Active 872944912 Problem Anxiety F41.9 Active 75943725 Problem Apnea, not elsewhere classified R06.81 Active 3858573 Problem Snoring R06.83 Active 55081330 ALLERGIES No Information ENCOUNTERS Encounter Location Date Diagnosis [facility] [id number] [place] [address] Nov, [facility] [id number] [place] [address]236 -[address]108 Sep, Seasonal allergic rhinitis, unspecified trigger J30.2 [facility] [id number] [place] [address] 40769 -6791 10 Sep, 2017 Dysuria R30.0 and Acute cystitis without hematuria N30.00 [facility] [id number] [place] [address] 8[address]83 -0834 16 Jun, 2017 Nasopharyngitis acute J00 [facility] [id number] [place] [address] 60835- 7980 Mar, Essential hypertension I10 ; Gastroesophageal reflux disease , esophagitis presence not specified K21.9 and Depression with anxiety F41.8 [place] [address] [address] Feb, [place] [address] [address] 2480 Jan, Essential hypertension I10 ; Gastroesophageal reflux disease , esophagitis presence not specified K21.9 and Anxiety F41.9 [place] [address] [address] Jan, Essential hypertension I10 ; Seasonal allergic rhinitis due to pollen J30.1 ; Gastroesophageal reflux disease, esophagitis presence not specified K21.9 ; Excessive daytime sleepiness G47.19 ; Snoring R06.83 ; Anxiety F41.9 ; Decreased breath sounds at right lung base R09.89 ; Otalgia of left ear H92.02 and Tonsillar hypertrophy J35.1 [facility] WALK IN [place] [address] 47[address] Jan, Bronchitis J40 and Acute seasonal allergic rhinitis, unspecified trigger J30.2 [facility] WALK IN [address] [address] December, Pharyngitis due to other organism J02.[address] [address]- [address] Nov, Scabies infestation B86 [place] [address] [address]- 7437 Oct, [address] [address]- [address]61 Oct, Dermatitis L30.[address] [address]- 5652 May, Routine health maintenance Z00.00 ; Excessive daytime sleepiness G47.19 ; Snoring R06.83 ; Acute non-recurrent frontal sinusitis J01.10 and Hx of candidiasis Z86.19 [place] [address] [address]- [address]90 06 May, 2016 Seasonal allergic rhinitis due to pollen J30.1 ; Dizziness R42 ; Sore throat J02.9 ; Gastroesophageal reflux disease, esophagitis presence not specified K21.9 ; Snoring R06.83 ; Apnea, not elsewhere classified R06.81 ; Tonsillar hypertrophy J35.1 ; Excessive daytime sleepiness G47.19 and Anxiety F41.9 [facility] WALK IN [facility] [address] [address] Apr, Benign positional vertigo, unspecified laterality H81.10 [place] [address] 85772- 2278 Jan, Urinary frequency R35.0 ; Essential hypertension I10 and Vaginal dryness N89.[address] 7[address]- 0938 December, Unprotected sex Z72.51 and Vaginal discharge N89.8 [place] [address] [address]61 19 Sep, 2015 Acute bacterial sinusitis J01.90 and Acute pharyngitis J02.9 [place] [address] [address]- [address]237 11 Sep, 2015 Essential hypertension I10 ; Dizziness R42 ; FH: HTN ( hypertension) Z82.49 ; Family history of diabetes mellitus Z83.3 and Anxiety F41.9 [place] [address] [address]- 1423 Sep, [address] [address]27- 6495 Sep, Essential hypertension I10 [address] 94680- 7050 Sep, Essential hypertension I10 ; Dizziness R42 ; FH: HTN ( hypertension) Z82.49 and Family history of diabetes mellitus Z83.3 [facility] [address] [address]- [address] 20 May, 2015 URI (upper respiratory infection) J06.9 [facility] [address] [address]- [address] 09 May, 2015 UTI (urinary tract infection) N39.0 and Vaginitis N76.0 [facility] [id number] [place] [address]- 3960 10 Jan, 2015 Routine gynecological examination V72.31 ; Breast cancer screening V76.10 and Urinary frequency 788.41 [facility] [id number] [place] [address]60- 2013 14 Nov, 2014 [facility] [id number] [place] [address] 96938- 1473 Nov, [facility] [id number] [place] [address]156- 4314 Oct, [facility] [address] [address]- [address] Oct, [facility] [address] [address]- 0009 Oct, [facility] [address] [address]- 4893 Jan, [facility] [address] [address]- 2567 December, [facility] [address] [address]- 0813 December, [facility] [id number] [address] December, [facility] [address] [address] Nov, [facility] [id number] [place] [address] 06220- 0127 Nov, [facility] [place] [facility] [address] [id number] [place] [address]- 1854 Nov, [facility] [place] [facility] [address] [id number] [place] [address]- 1410 Oct, [facility] [place] [facility] [address] [facility] [id number] [place] [address]- 8364 Jun, [facility] [place] [facility] [address] [id number] [place] [address]- 2398 Jun, [facility] [place] [facility] [address] [id number] [place] [address]- 1081 May, [facility] [place] [facility] [address] [id number] [place] [address]- 5481 May, [facility] [place] [facility] [address] [facility] [id number] [place] [address]- 9612 May, [facility] [place] [facility] [address] [facility] [id number] [place] [address]- 8764 May, [facility] [place] [facility] [address] [facility] [id number] [place] [address]- 8102 May, [facility] [place] [facility] [address] [facility] [id number] [place] [address]- 3990 May, [facility] [place] [facility] [address] [facility] [id number] [place] [address]- 5043 May, [facility] [place] [facility] [address] [facility] [id number] [place] [address]- 5933 May, [facility] [place] [facility] [address] [id number] [place] [address]- 0981 Jan, [facility] [place] [facility] [address] [facility] [id number] [place] [address]- 2135 May, [facility] [place] [facility] [address] [facility] [id number] [place] [address]- 5700 May, [facility] [place] [facility] [address] [facility] [id number] [place] [address]- 1916 May, [facility] [address] [facility] [id number] [address]- 4017 May, [facility] [address] [facility] [id number] [place] [address]- 3626 May, [facility] [address] [facility] [id number] [place] [address]- 7959 Apr, [facility] [address] [facility] [id number] CITY [place] [address] Mar, IMMUNIZATIONS No Known Immunizations SOCIAL HISTORY Never Assessed REASON FOR VISIT Med per Lab Result PLAN OF CARE VITAL SIGNS MEDICATIONS Medication Instructions Dosage Frequency Start Date End Date Duration Status Metformin HCl 500 mg Orally Once a day with evening meal 1 tablet Feb Active RESULTS No Results PROCEDURES No Known [...]
--- OUTSIDE RECORDS SUMMARY | 2018-05-07 09:35 | XMS REPORT ---
Author Author LUCAS CUNHA [facility] eClinicalWorks Address Unknown Phone Unavailable Care Team Providers Care Screening Tech Name Role Phone LUCAS CUNHA CP Unavailable Allergies, Adverse Reactions, Alerts Substance Reaction Event Type N.K.D.A. Info Not Available Non Drug Allergy Problems Problem Type Condition Code Onset Dates Condition Status Assessment URI (upper respiratory infection) J06.9 Active Medications Medication Code System Code Instructions Start Date End Date Status Dosage Sudafed NDC [address]-46 60 mg Orally every 6 hrs Jun 03, 2015 1 tablet as needed Cranberry NDC 0 405 MG Orally not defined Procedures Procedure Coding System Code Date Office Visit, Est Pt., Level 2 CPT-4 67508 Jun 03, 2015 Vital Signs Date/Time: Jun 03, 2015 Temperature 98.4 F Weight 215 lbs Height 63 in BMI 38.08 Index Blood Pressure Diastolic 78 mmHg Blood Pressure Systolic 128 mmHg Cardiac Monitoring Heart Rate 80 bpm Results No Known Results Summary Purpose eClinicalWorks Submission
--- OUTSIDE RECORDS SUMMARY | 2018-05-07 09:36 | XMS REPORT | Continuity of Care Document ---
Author Author [facility] Address Unknown Phone Unavailable Allergies Active Description Code Type Severity Reaction Onset Reported/Identified Relationship to Patient Clinical Status Yes No Known Drug Allergies [id number] Drug Allergy Unknown N/A 02/23/2007 Medications There is no data. Problems Date Dx Coded Attending Type Code Diagnosis Diagnosed By 09/05/2008 KEYONNA BLACKBURN APRN 611.71 breast pain 09/05/2008 OTONIEL THAKUR DO 611.71 breast pain 09/05/2008 611.71 breast pain 09/05/2008 JUAN SEBASTIAN APRN 611.71 breast pain 02/03/2009 KEYONNA BLACKBURN APRN 599.0 URINARY TRACT INFECTION SITE NOT SPECIFIED 02/03/2009 OTONIEL THAKUR DO 599.0 URINARY TRACT INFECTION SITE NOT SPECIFIED 02/03/2009 599.0 URINARY TRACT INFECTION SITE NOT SPECIFIED 02/03/2009 JUAN SEBASTIAN APRN 599.0 URINARY TRACT INFECTION SITE NOT SPECIFIED 04/02/2009 KEYONNA BLACKBURN APRN 296.9 MOOD DIS NOS 04/02/2009 KEYONNA BLACKBURN APRN 462 PHARYNGITIS ACUTE 04/02/2009 OTONIEL THAKUR DO 296.9 MOOD DIS NOS 04/02/2009 OTONIEL THAKUR DO 462 PHARYNGITIS ACUTE 04/02/2009 296.9 MOOD DIS NOS 04/02/2009 462 PHARYNGITIS ACUTE 04/02/2009 JUAN SEBASTIAN APRN A 296.9 MOOD DIS NOS 04/02/2009 JUAN SEBASTIAN APRN 462 PHARYNGITIS ACUTE 04/03/2009 KEYONNA BLACKBURN APRN 296.90 MO MOOD DIS NOS 04/03/2009 OTONIEL THAKUR DO 296.90 MO MOOD DIS NOS 04/03/2009 296.90 MO MOOD DIS NOS 04/03/2009 JUAN SEBASTIAN APRN A 296.90 MO MOOD DIS NOS 05/02/2009 KEYONNA BLACKBURN APRN 536.8 DYSPEPSIA 05/02/2009 KEYONNA BLACKBURN APRN 626.4 irregular length of menstrual periods 05/02/2009 KEYONNA BLACKBURN APRN 789.00 abdominal pain 05/02/2009 KEYONNA BLACKBURN APRN V72.31 Pelvic Exam (Internal) 05/02/2009 KEYONNA BLACKBURN APRN V74.5 visit for: screening exam bact/spirochetal venereal disease 05/02/2009 HEIKE THAKUR DOA K 536.8 DYSPEPSIA 05/02/2009 THAKUR DOHEIKEA K 626.4 irregular length of menstrual periods 05/02/2009 THAKUR DO OTONIEL K 789.00 abdominal pain 05/02/2009 THAKUR DO OTONIEL K V72.31 Pelvic Exam (Internal) 05/02/2009 BLAZE DO OTONIEL K V74.5 visit for: screening exam bact/spirochetal venereal disease 05/02/2009 536.8 DYSPEPSIA 05/02/2009 626.4 irregular length of menstrual periods 05/02/2009 789.00 abdominal pain 05/02/2009 V72.31 Pelvic Exam ( Internal) 05/02/2009 V74.5 visit for: screening exam bact/spirochetal venereal disease 05/02/2009 JUAN SEBASTIAN APRN A 536.8 DYSPEPSIA 05/02/2009 JUAN SEBASTIAN APRN A 626.4 irregular length of menstrual periods 05/02/2009 JUAN SEBASTIAN APRN A 789.00 abdominal pain 05/02/2009 JUAN SEBASTIAN APRN A V72.31 Pelvic Exam (Internal) 05/02/2009 JUAN SEBASTIAN APRN A V74.5 visit for: screening exam bact/spirochetal venereal disease 05/27/2011 KEYONNA BLACKBURN APRN 788.1 DYSURIA 05/27/2011 KEYONNA BLACKBURN APRN 789.69 ABDOMINAL TENDERNESS OTHER SPECIFIED SITE 05/27/2011 THAKUR DO OTONIEL K 788.1 DYSURIA 05/27/2011 THAKUR DO OTONIEL K 789.69 ABDOMINAL TENDERNESS OTHER SPECIFIED SITE 05/27/2011 788.1 DYSURIA 05/27/2011 789.69 ABDOMINAL TENDERNESS OTHER SPECIFIED SITE 05/27/2011 ROMULOJUAN FAN APRN A 788.1 DYSURIA 05/27/2011 ROMULOJUAN Freed APRN A 789.69 ABDOMINAL TENDERNESS OTHER SPECIFIED SITE 05/28/2011 Ot 599.0 URIN TRACT INFECTION NOS 05/28/2011 Ot 614.9 FEM PELV INFLAM DIS NOS 05/28/2011 Ot 788.1 DYSURIA 01/15/2012 KEYONNA BLACKBURN APRN 461.9 SINUSITIS ACUTE 01/15/2012 KEYONNA BLACKBURN APRN 466.0 BRONCHITIS, ACUTE 01/15/2012 KEYONNA BLACKBURN APRN 788.41 URINARY FREQUENCY 01/15/2012 OTONIEL THAKUR DO 461.9 SINUSITIS ACUTE 01/15/2012 OTONIEL THAKUR DO 466.0 BRONCHITIS, ACUTE 01/15/2012 OTONIEL THAKUR DO 788.41 URINARY FREQUENCY 01/15/2012 461.9 SINUSITIS ACUTE 01/15/2012 466.0 BRONCHITIS, ACUTE 01/15/2012 788.41 URINARY FREQUENCY 01/15/2012 JUAN SEBASTIAN APRN A 461.9 SINUSITIS ACUTE 01/15/2012 JUAN SEBASTIAN APRN A 466.0 BRONCHITIS, ACUTE 01/15/2012 ROMULOJUAN Freed APRN A 788.41 URINARY FREQUENCY 05/19/2012 KEYONNA BLACKBURN APRN 616.10 VAGINITIS AND VULVOVAGINITIS UNSPECIFIED 05/19/2012 KEYONNA BLACKBURN APRN V76.2 CERVICAL CANCER SCREENING (PAP SMEAR) 05/19/2012 OTONIEL THAKUR DO 616.10 VAGINITIS AND VULVOVAGINITIS UNSPECIFIED 05/19/2012 OTONIEL THAKUR DO V76.2 CERVICAL CANCER SCREENING (PAP SMEAR) 05/19/2012 616.10 VAGINITIS AND VULVOVAGINITIS UNSPECIFIED 05/19/2012 V76.2 CERVICAL CANCER SCREENING (PAP SMEAR) 05/19/2012 JUAN SEBASTIAN APRN A 616.10 VAGINITIS AND VULVOVAGINITIS UNSPECIFIED 05/19/2012 JUAN SEBASTIAN APRN V76.2 CERVICAL CANCER SCREENING (PAP SMEAR) 11/03/2012 THAKUR DO, OTONIEL K V25.49 CONTRACEPTION SURVEILLANCE (REPEAT RX) 11/03/2012 V25.49 CONTRACEPTION SURVEILLANCE (REPEAT RX) 11/03/2012 JUAN SEBASTIAN APRN V25.49 CONTRACEPTION SURVEILLANCE (REPEAT RX) 12/04/2012 626.8 DYSFUNCTIONAL UTERINE BLEEDING 12/04/2012 704.1 HIRSUTISM 12/04/2012 780.79 fatigue 12/04/2012 JUAN SEBASTIAN APRN 626.8 DYSFUNCTIONAL UTERINE BLEEDING 12/04/2012 JUAN SEBASTIAN APRN 704.1 HIRSUTISM 12/04/2012 JUAN SEBASTIAN APRN 780.79 fatigue 04/18/2013 TONY YANG DO Ot 220 BENIGN NEOPLASM OVARY 04/18/2013 TONY YANG DO Ot 568.0 PERITONEAL HXCYOGHLK-ITUO-SD/INF 04/18/2013 TONY YANG DO Ot 614.6 FEM PELVIC PERITON ADH-POST-OP/INF 04/18/2013 TONY YANG DO Ot 617.0 UTERINE ENDOMETRIOSIS 04/18/2013 TONY YANG DO Ot 620.1 CORPUS LUTEUM CYST 04/18/2013 TONY YANG DO Ot 621.8 DISORDERS OF UTERUS NEC 04/18/2013 TONY YANG DO Ot 625.0 DYSPAREUNIA 04/18/2013 TONY YANG DO Ot 626.2 EXCESSIVE MENSTRUATION 10/17/2015 Ot 788.1 10/17/2015 Ot 789.69 10/17/2015 JUAN SEBASTIAN APRN Ot 626.8 10/17/2015 TONY YANG DO Ot 625.3 10/17/2015 TONY YANG DO Ot 626.2 10/17/2015 TONY YANG DO Ot V72.63 10/17/2015 TONY YANG DO Ot V74.8 10/17/2015 ALMA ACOSTA INST[employer]ATION & MAINTENANCE EXECUTIVE Ot M23.91 UNSPECIFIED INTERNAL DERANGEMENT OF RIGH 10/17/2015 ALMA ACOSTA [employer]ATION [employer] MAINTENANCE EXECUTIVE Ot M25.461 EFFUSION, RIGHT KNEE 10/27/2015 Ot 788.1 10/27/2015 Ot 789.69 10/27/2015 JUAN SEBASTIAN INSTALLATION & MAINTENANCE EXECUTIVE Ot 626.8 10/27/2015 TONY YANG DO Ot 625.3 10/27/2015 YANG DOTONY Ot 626.2 10/27/2015 TONY YANG DO Ot V72.63 10/27/2015 YANGTONY Servin DO Ot V74.8 10/29/2015 YANGSCOT Kavita BREAKER LAYER Ot S82.124A 10/29/2015 YANGSCOT Kavita BREAKER LAYER Ot W19.XXXA 10/29/2015 YANG, SCOT Kavita BREAKER LAYER Ot Y92.009 10/29/2015 YANG, SCOT Kavita BREAKER LAYER Ot Y99.8 11/12/2015 YANGSCOT BREAKER LAYER Ot S82.124A 11/12/2015 YANG, SCOT Kavita BREAKER LAYER Ot W19.XXXA 11/12/2015 YANG, SCOT Walls BREAKER LAYER Ot Y92.009 11/12/2015 YANG, SCOT Walls BREAKER LAYER Ot Y99.8 11/21/2015 TREY SCOT Walls BREAKER LAYER Ot S82.124A 11/21/2015 YANG, SCOT Kavita BREAKER LAYER Ot X58.XXXA 11/21/2015 YANG, SCOT Kavita BREAKER LAYER Ot Y99.8 11/27/2015 TREY SCOT Kavita BREAKER LAYER Ot S82.124A 11/27/2015 YANG, SCOT Kavita BREAKER LAYER Ot W19.XXXA 11/27/2015 YANG, SCOT Kavita BREAKER LAYER Ot Y92.009 11/27/2015 TREY SCOT Kavita BREAKER LAYER Ot Y99.8 05/02/2016 NEHAL BRANTLEY MD Ot H81.13 BENIGN PAROXYSMAL VERTIGO, BILATERAL 05/02/2016 NEHAL BRANTLEY MD Ot R42 DIZZINESS AND GIDDINESS 05/02/2016 Ot 788.1 DYSURIA 05/02/2016 Ot 789.69 ABDOMINAL TENDERNESS, OTHER SPECIFIED SI 05/02/2016 JUAN SEBASTIAN APRN Ot 626.8 MENSTRUAL DISORDER NEC 05/02/2016 TONY YANG DO Ot 625.3 DYSMENORRHEA 05/02/2016 TONY YANG DO Ot 626.2 EXCESSIVE MENSTRUATION 05/02/2016 TONY YANG DO Ot V72.63 PRE-PROCEDURAL LABORATORY EXAMINATION 05/02/2016 TONY YANG DO Ot V74.8 SCREEN-BACTERIAL DIS NEC 05/02/2016 YANG, SCOT Kavita MARMOLEJO Ot S82.124A NONDISP FX OF LATERAL CONDYLE OF RIGHT T 05/02/2016 YANGSCOT Kavita MARMOLEJO Ot W19.XXXA UNSPECIFIED FALL, INITIAL ENCOUNTER 05/02/2016 YANG, SCOT Kavita BREAKER LAYER Ot Y92.[address] IN [facility] NON-INSTIT[facility] (PRIVATE 05/02/2016 TREY SCOT Kavita MARMOLEJO Ot Y99.8 OTHER EXTERNAL CAUSE STATUS 05/02/2016 YANG, SCOT Kavita BREAKER LAYER Ot S82.124A NONDISP FX OF LATERAL CONDYLE OF RIGHT T 05/02/2016 TREY SCOTVALENCIA MARMOLEJO Ot X58.XXXA EXPOSURE TO OTHER SPECIFIED FACTORS, INI 05/02/2016 TREY SCOTVALENCIA MARMOLEJO Ot Y99.8 OTHER EXTERNAL CAUSE STATUS 05/04/2016 FERCHO SULTANA, NEHAL De Jesus Ot H81.13 BENIGN PAROXYSMAL VERTIGO, BILATERAL 05/04/2016 FERCOH SULTANA, NEHAL De Jesus Ot R42 DIZZINESS AND GIDDINESS Procedures Code Description [place] [address] ROUTINE VENIPUNCTURE 05/22/2012 31675 T4 FREE 05/23/2012 94386 PROLACTIN 05/23/2012 95075 TSH 05/23/2012 70968 THERAPUTIC INJ SQ/IM 11/03/2012 J1050 DEPO PROVERA 11/03/2012 72200 ROUTINE VENIPUNCTURE 12/04/2012 87324 CBC 12/05/2012 89036 UA W/ CULTURE IF INDICATED 11/05/2013 91526 CULTURE URINE 11/08/2013 Results Test Result Range Complete blood count (CBC) with automated white blood cell (WBC) differential - 05/02/16 13:15 Blood leukocytes automated count (number/volume) 5.8 10*3/uL 4.3-11.0 Blood erythrocytes automated count (number/volume) 4.71 10*6/uL 4.35-5.85 Venous blood hemoglobin measurement (mass/volume) 14.2 g/dL 11.5-16.0 Blood hematocrit (volume fraction) 42 % 35-52 Automated erythrocyte mean corpuscular volume 88 [foz_us] 80-99 Automated erythrocyte mean corpuscular hemoglobin (mass per erythrocyte) 30 pg 25-34 Automated erythrocyte mean corpuscular hemoglobin concentration measurement ( mass/volume) 34 g/dL 32-36 Automated erythrocyte distribution width ratio 12.9 % 10.0-14.5 Automated blood platelet count (count/volume) 273 10*3/uL 130-400 Automated blood platelet mean volume measurement 9.6 [foz_us] 7.4-10.4 Automated blood neutrophils/100 leukocytes 64 % 42-75 Automated blood lymphocytes/100 leukocytes 28 % 12-44 Blood monocytes/100 leukocytes 7 % 0-12 Automated blood eosinophils/100 leukocytes 1 % 0-10 Automated blood basophils/100 leukocytes 1 % 0-10 Blood neutrophils automated count (number/volume) 3.7 10*3 1.8-7.8 Blood lymphocytes automated count (number/volume) 1.6 10*3 1.0-4.0 Blood monocytes automated count (number/volume) 0.4 10*3 0.0-1.0 Automated eosinophil count 0.0 10*3/uL 0.0-0.3 Automated blood basophil count (count/volume) 0.0 10*3/uL 0.0-0.1 Comprehensive metabolic panel - 05/02/16 13:15 Serum or plasma sodium measurement (moles/volume) 140 mmol/L 135-145 Serum or plasma potassium measurement (moles/volume) 3.8 mmol/L 3.6-5.0 Serum or plasma chloride measurement (moles/volume) 108 mmol/L 98-107 Carbon dioxide 20 mmol/L 21-32 Serum or plasma anion gap determination (moles/volume) 12 mmol/L 5-14 Serum or plasma urea nitrogen measurement (mass/volume) 7 mg/dL 7-18 Serum or plasma creatinine measurement (mass/volume) 0.78 mg/dL 0.60-1.30 Serum or plasma urea nitrogen/creatinine mass ratio 9 NRG Serum or plasma creatinine measurement with calculation of estimated glomerular filtration rate > NRG Serum or plasma glucose measurement (mass/volume) 88 mg/dL 70-105 Serum or plasma calcium measurement (mass/volume) 9.2 mg/dL 8.5-10.1 Serum or plasma total bilirubin measurement (mass/volume) 0.9 mg/dL 0.1-1.0 Serum or plasma alkaline phosphatase measurement (enzymatic activity/volume) 77 U/L 40-136 Serum or plasma aspartate aminotransferase measurement (enzymatic activity/ volume) 23 U/L 5-34 Serum or plasma alanine aminotransferase measurement (enzymatic activity/volume ) 26 U/L 0-55 Serum or plasma protein measurement (mass/volume) 7.5 g/dL 6.4-8.2 Serum or plasma albumin measurement (mass/volume) 4.1 g/dL 3.2-4.5 CBC With Differential/Platelet - 02/11/17 09:21 WBC 6.6 x10E3/uL 3.4-10.8 RBC 4.90 x10E6/uL 3.77-5.28 Hemoglobin 14.5 g/dL 11.1-15.9 Hematocrit 43.5 % 34.0-46.6 MCV 89 fL 79-97 MCH 29.6 pg 26.6-33.0 MCHC 33.3 g/dL 31.5-35.7 RDW 13.2 % 12.3-15.4 Platelets 315 x10E3/uL 150-379 Neutrophils 52 % Lymphs 34 % Monocytes 10 % Eos 2 % Basos 1 % Neutrophils (Absolute) 3.5 x10E3/uL 1.4-7.0 Lymphs (Absolute) 2.3 x10E3/uL 0.7-3.1 Monocytes(Absolute) 0.7 x10E3/uL 0.1-0.9 Eos (Absolute) 0.1 x10E3/uL 0.0-0.4 Baso (Absolute) 0.0 x10E3/uL 0.0-0.2 Immature Granulocytes 1 % Immature Grans (Abs) 0.0 x10E3/uL 0.0-0.1 Comp. Metabolic Panel (14) - 02/11/17 09:21 Glucose, Serum 92 mg/dL 65-99 BUN 13 mg/dL 6-24 Creatinine, Serum 0.86 mg/dL 0.57-1.00 eGFR If NonAfricn Am 85 mL/min/1.73 >59 eGFR If Africn Am 98 mL/min/1.73 >59 BUN/Creatinine Ratio 15 9-23 Sodium, Serum 138 mmol/L 134-144 Potassium, Serum 4.6 mmol/L 3.5-5.2 Chloride, Serum 96 mmol/L 96-106 Carbon Dioxide, Total 25 mmol/L 18-29 Calcium, Serum 9.6 mg/dL 8.7-10.2 Protein, Total, Serum 7.4 g/dL 6.0-8.5 Albumin, Serum 4.4 g/dL 3.5-5.5 Globulin, Total 3.0 g/dL 1.5-4.5 A/G Ratio 1.5 1.2-2.2 Bilirubin, Total 0.4 mg/dL 0.0-1.2 Alkaline Phosphatase, S 92 IU/L 39-117 AST (SGOT) 28 IU/L 0-40 ALT (SGPT) 37 IU/L 0-32 Lipid Panel - 02/11/17 09:21 Cholesterol, Total 204 mg/dL 100-199 Triglycerides 81 mg/dL 0-149 HDL Cholesterol 87 mg/dL >39 VLDL Cholesterol Rj 16 mg/dL 5-40 LDL Cholesterol Calc 101 mg/dL 0-99 Hemoglobin A1c - 02/11/17 09:21 Hemoglobin A1c 6.1 % 4.8-5.6 Thyroid [place] Profile - 02/11/17 09:21 TSH 1.020 uIU/mL 0.450-4.500 CULTURE, URINE - 09/24/17 13:12 CULTURE, URINE, ROUTINE SEE NOTE NRG A1C - 02/22/18 09:27 HEMOGLOBIN A1c 5.5 % of total Hgb <5.7 Encounters ACCT No. Visit Date/Time Discharge Status Pt. Type Provider Facility Loc./Unit Complaint [id number] 11/05/2013 17:00:00 11/05/2013 23:59:59 CLS Outpatient JUAN SEBASTIAN APRN [id number] 11/03/2012 15:39:00 11/03/2012 23:59:59 [place] [id number] 05/22/2012 07:58:00 05/22/2012 23:59:59 CLS Outpatient KEYONNA BLACKBURN APRN [id number] 12/04/2012 16:24:00 Document Registration [id number] 05/02/2016 11:41:00 05/02/2016 14:20:00 DIS Emergency FERCHO SULTANA, NEHAL De Jesus [facility] ER VOMITING/DIZZINESS [id number] 10/27/2015 15:27:00 10/27/2015 23:59:59 CLS Outpatient SCOT YANG [facility] RAD NONDISPLACED FRACTURE OF LATERAL CONDYLE [id number] 10/27/2015 07:56:00 10/27/2015 23:59:59 CLS Outpatient SCOT YANG [facility] RAD NONDISPLACED FRACTURE OF LATERAL CONDILE [id number] 10/17/2015 14:01:00 10/17/2015 15:50:00 DIS Emergency ALMA ACOSTA INSTALLATION & MAINTENANCE EXECUTIVE [facility] ER FALL/RT KNEE PAIN [id number] 04/17/2013 08:04:00 04/18/2013 13:15:00 DIS [facility] DYSPAREUNIA ; PELVIC PAIN [id number] 04/09/2013 10:42:00 04/09/2013 23:59:59 CLS Outpatient TONY YANG DO [facility] PREOP MENORRHAGIA,DYSPAREUNIA ,PELVIC PAIN [id number] 01/10/2013 14:50:00 01/10/2013 23:59:59 CLS Outpatient JUAN SEBASTIAN INSTALLATION & MAINTENANCE EXECUTIVE [facility] RAD DUB [id number] 12/07/2012 12:22:00 12/07/2012 23:59:59 CLS Outpatient [id number] 05/07/2018 09:29:00 ACT Emergency NEHAL BRANTLEY MD [facility] ER SPIDER BITE [id number] 10/17/2015 14:00:00 Document Registration [id number] 06/03/2011 08:07:00 Document Registration [id number] 05/28/2011 06:51:00 Document Registration [id number] 02/14/2017 13:05:00 Document Registration [id number] 02/21/2018 10:20:00 02/21/2018 23:59:59 CLS Outpatient [facility] [place] [id number] 02/22/2018 09:40:00 Document Registration [id number] 09/24/2017 12:30:00 Document Registration
--- OUTSIDE RECORDS SUMMARY | 2018-05-07 09:36 | XMS REPORT | Continuity of Care Document ---
Author Author [facility] Organization [facility] Address Unknown Phone Unavailable Care Team Providers Care Dishwasher Name Role Phone [facility] OF Insurance Providers Payer Name Policy Number Subscriber Name Relationship [facility] [id number] Marry Allen 01 Self / Same As Patient Advance Directives Directive Response Recorded Date Advance Directives N 04/17/13 9:30am Health Care Power of Information Technology Security Analyst N 04/09/13 10:54am Organ Donor N 04/09/13 10:54am Problems No Known Problems or Medical conditions. Family History History Response Recorded Date/Time Hx Family Cancer N 04/09/13 10:59am Hx Family Cardiac Disorders N 04/09/13 10 :59am Social History History Response Recorded Date/Time Alcohol Use Occasionally Uses 04/17/13 2: 45pm Recreational Drug Use N 04/17/13 2:45pm Sexually Transmitted Disease N 04/17/13 2 :45pm HIV/AIDS N 04/17/13 2:45pm Allergies, Adverse Reactions, Alerts Allergen Type Severity Reaction Last Updated No Known Drug Allergies 02/23/07 Medications Medication Dose Units Route Sig Qty Days Iron &Iron Asp Gly/Fa/Mv,Min38 (Iron Tablet) 1 Each PO BID 120 Acetaminophen/Hydrocodone Bitart (Lorcet 5/325 Mg) 1 - 2 Tab PO q 4-6 hrs prn PRN 45 Docusate Sodium (Colace Cap) 100 Mg PO BID 60 Ibuprofen (Motrin) 600 Mg PO Q6H 40 Nitrofurantoin Macrocrystals (Macrobid) 1 Each PO BID 20 Metronidazole (Flagyl 500 Mg) 1 Each PO TID 30 Response Recorded Date/Time Status not known Unknown Results Test Date Result Interp. Ref. Range Alanine Aminotransferase (ALT/SGPT) February 24, 2007 6:12am 29 U/L L 30-65 Albumin February 24, 2007 6:12am 1.7 G/DL L 3.4-5.0 Alkaline Phosphatase February 24, 2007 6:12am 117 U/L N 50-136 Aspartate Amino Transf (AST/SGOT) February 24, 2007 6:12am 27 U/L N 15-37 BUN/Creatinine Ratio February 24, 2007 6:12am 7 - Basophils # (Auto) April 09, 2013 11:05am 0.0 10^3/uL N 0.0-0.1 Basophils (%) (Auto) April 09, 2013 11:05am 1 % N 0-10 Blood Urea Nitrogen February 24, 2007 6:12am 4 MG/DL L 7-18 Calcium Level February 24, 2007 6:12am 7.2 MG/DL L 8.5-10.1 Carbon Dioxide Level February 24, 2007 6:12am 24 MMOL/L N 21-32 Chlamydia DNA Probe May 28, 2011 7:25am NEG - Chlamydia/GC DNA Probe Source May 28, 2011 7:25am CERVIX - Chloride Level February 24, 2007 6:12am 105 MMOL/L N 101-110 Creatinine February 24, 2007 6:12am 0.6 MG/ DL N 0.6-1.3 Eosinophils # (Auto) April 09, 2013 11:05am 0.1 10^3/uL N 0.0-0.3 Eosinophils (%) (Auto) April 09, 2013 11:05am 1 % N 0-10 Glucose Level February 24, 2007 6:12am 108 MG/DL N 70-126 Hematocrit April 09, 2013 11:05am 36 % N 35-52 Hemoglobin April 09, 2013 11:05am 12.3 G/DL N 11.5-16.0 Lactate Dehydrogenase February 25, 2007 5:50pm 347 U/L H 100-190 Lymphocytes # (Auto) April 09, 2013 11:05am 2.1 X 10^3 N 1.0-4.0 Lymphocytes (%) (Auto) April 09, 2013 11:05am 38 % N 12-44 Mean Corpuscular Hemoglobin April 09, 2013 11:05am 29 PG N 25-34 Mean Corpuscular Hemoglobin Concent April 09, 2013 11:05am 34 G/DL N 32-36 Mean Corpuscular Volume April 09, 2013 11:05am 87 FL N 80-99 Mean Platelet Volume April 09, 2013 11:05am 9.6 FL N 7.4-10.4 Monocytes # (Auto) April 09, 2013 11:05am 0.7 X 10^3 N 0.0-1.0 Monocytes (%) (Auto) April 09, 2013 11:05am 12 % N 0-12 Neisseria gonorrhoeae DNA Probe May 28, 2011 7:25am NEG - Neutrophils # (Auto) April 09, 2013 11:05am 2.7 X 10^3 N 1.8-7.8 Neutrophils (%) (Auto) April 09, 2013 11:05am 49 % N 42-75 Platelet Count April 09, 2013 11:05am 253 10^3/uL N 130-400 Potassium Level February 24, 2007 6:12am 3.6 MMOL/L N 3.6-5.0 Red Blood Count April 09, 2013 11:05am 4.19 10^6/uL L 4.35-5.85 Red Cell Distribution Width April 09, 2013 11:05am 12.7 % N 10.0-14.5 Sodium Level February 24, 2007 6:12am 134 MMOL/L L 135-145 Total Bilirubin February 24, 2007 6:12am 0.5 MG/DL N 0.0-1.0 Total Protein February 24, 2007 6:12am 5.0 G /DL L 6.4-8.2 Ur Tricyclic Antidepressants Screen October 22, 2006 2:45am Negative - Uric Acid February 23, 2007 9:14am 4.6 MG/ DL N 2.6-7.2 Urine Amphetamines Screen October 22, 2006 2:45am Negative - Urine Bacteria May 28, 2011 7:00am TRACE - Urine Barbiturates Screen October 22, 2006 2:45am Negative - Urine Benzodiazepines Screen October 22, 2006 2:45am Negative - Urine Bilirubin May 28, 2011 7:00am NEGATIVE - Urine Casts May 28, 2011 7:00am NONE - Urine Clarity May 28, 2011 7:00am very cloudy - Urine Cocaine Screen October 22, 2006 2:45am Negative - Urine Color May 28, 2011 7:00am YELLOW - Urine Crystals May 28, 2011 7:00am NONE - Urine Culture Indicated May 28, 2011 7:00am YES - Urine Glucose (UA) May 28, 2011 7:00am NEGATIVE - Urine Ketones May 28, 2011 7:00am NEGATIVE - Urine Leukocyte Esterase May 28, 2011 7:00am 2+ H - Urine Methamphetamines Screen October 22, 2006 2:45am Negative - Urine Mucus May 28, 2011 7:00am NEGATIVE - Urine Nitrate February 23, 2007 8:50am Negative - Urine Nitrite May 28, 2011 7:00am NEGATIVE - Urine Opiates Screen October 22, 2006 2:45am Negative - Urine Phencyclidine Screen October 22, 2006 2:45am Negative - Urine Propoxyphene Screen October 22, 2006 2:45am Negative - Urine Protein May 28, 2011 7:00am 2+ H - Urine RBC May 28, 2011 7:00am >100 / HPF H - Urine Specific [place] May 28, 2011 7:00am 1.025 H - Urine Squamous Epithelial Cells February 23, 2007 8:50am >50 H - Urine Urobilinogen May 28, 2011 7:00am NORMAL MG/DL - Urine WBC May 28, 2011 7:00am 50-100 /HPF H - Urine pH May 28, 2011 7:00am 6.0 - White Blood Count April 09, 2013 11:05am 5.5 10^3/uL N 4.3-11.0 Urine Oxycodone Screen October 22, 2006 2:45am Negative - Urine Methadone Screen October 22, 2006 2:45am Negative - Urine Cannabinoids Screen October 22, 2006 2:45am Negative - Urine RBC (Auto) May 28, 2011 7:00am 4+ H - Procedures Procedure Code Date LOW CERVICAL 74.1 02/23/07 INSTRUMENT DELIVERY NOS 72.9 02/23/07 LAPARO-VAG HYST INCL T/O 60450 04/17/13 Genital Culture 05/28/11 MRSA Screen 04/09/13 Urine Culture 05/28/11 Encounters Encounter Location Date/Time Departed Emergency Room [facility] 28/06 6:51am Discharged Inpatient [facility] 8:48am Pre-admitted Inpatient [facility] 05/21 2:21pm
--- OUTSIDE RECORDS SUMMARY | 2018-05-07 09:36 | XMS REPORT ---
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 Boat Captain Name Role Phone ASHLEY DANIKA Unavailable PROBLEMS Type Condition ICD9-CM Code IFI36-BA Code Onset Dates Condition Status SNOMED Code Problem Tonsillar hypertrophy J35.1 Active 97505450 Problem Gastroesophageal reflux disease, esophagitis presence not specified K21.9 Active 099620515 Problem Excessive daytime sleepiness G47.19 Active 000608346892 Problem Elevated hemoglobin A1c R73.09 Active 036002365 Problem Hypercholesteremia E78.00 Active 68743135 Problem Dizziness R42 Active 117454471 Problem Essential hypertension I10 Active 98871115 Problem Depression with anxiety F41.8 Active 906783237 Problem Seasonal allergic rhinitis due to pollen J30.1 Active 57383129 Problem Sore throat J02.9 Active 239271066 Problem Anxiety F41.9 Active 97806609 Problem Apnea, not elsewhere classified R06.81 Active 7690522 Problem Snoring R06.83 Active 89201212 ALLERGIES No Known Allergies SOCIAL HISTORY Never Assessed PLAN OF CARE VITAL SIGNS Height 63 in 2017-01-12 Weight 214.4 lbs 2017-01-12 Temperature 98.6 degrees Fahrenheit 2017-01-12 Heart Rate 80 bpm 2017-01-12 Respiratory Rate 20 2017-01-12 BMI 37.98 kg/m2 2017-01-12 Blood pressure systolic 140 mmHg 2017-01-12 Blood pressure diastolic 98 mmHg 2017-01-12 MEDICATIONS Medication Instructions Dosage Frequency Start Date End Date Duration Status Amoxicillin 500 mg Orally 3 times a day 1 capsule 8h December, Jan, 10 day(s) Active BusPIRone HCl 5 mg Orally 2 times a day 1/2 to 1 tablet 12h Sep, 30 days Active Tylenol 8 Hour 650 MG Orally every 8 hrs 1 tablet as needed 8h Active Diflucan 150 MG Orally Once a day 1 tablet 24h December, 1 dose Active RESULTS No Results PROCEDURES No Known procedures IMMUNIZATIONS No Known Immunizations MEDICAL (GENERAL) HISTORY Type Description Date Medical [...]
[2018-05-07] MEDS ORDERED: Sudafed (09:41)
[2018-05-07] MEDS ORDERED: CHLO25TA22 (09:41)
[2018-05-07] MEDS ORDERED: HYDR50TA76 (09:41)
[2018-05-07] MEDS ORDERED: LORA10TA7 (09:41)
--- NOTE | 2018-05-07 09:54 | ED Integumentary General ---
General Chief Complaint: Bite-Animal/Human/Insect Stated Complaint: SPIDER BITE Nursing Triage Note: ARRIVED VIA AMB TO ROOM 10. COMPLAINS OF BEING BITTEN BY A SPIDER AROUND 1 AM ON BUTTOCKS. HAS NOT TAKEN ANYTHING FOR PAIN. Source: patient Exam Limitations: no limitations History of Present Illness Date Seen by Provider: May 07, 2018 Time Seen by Provider: 09:49 Initial Comments This 43-year-old female presents after sustaining a spider bite to her right gluteal area around 1 a.m. this morning (8 hours prior to presentation to the emergency department). Patient experienced immediate severe pain in the area. The patient also noted swelling to the area. The pain is still present but the swelling has subsided. The patient had an immediate urge to vomit and have diarrhea. These symptoms have abated. Patient had no shortness of breath. Patient has hypertension and allergies. Allergies and Home Medications Allergies Coded Allergies: No Known Drug Allergies (Verified , 02/23/07) Patient Home Medication List Home Medication List Reviewed: Yes Review of Systems Review of Systems Constitutional: see HPI; No chills, No fever; malaise EENTM: No ear pain Respiratory: No cough, No short of breath Cardiovascular: No chest pain, No palpitations Gastrointestinal: No abdominal pain; nausea Genitourinary: no symptoms reported Musculoskeletal: no symptoms reported Skin: no symptoms reported, other (although the patient had swelling to the right gluteal area there is been no inflammation or rash.) Psychiatric/Neurological: No Symptoms Reported Endocrine: No Symptoms Reported Past Nvemsut-Kokegc-Qglmsh Hx Past Med/Social Hx: Reviewed Nursing Past Med/Soc Hx Patient Social History Alcohol Use: Occasionally Uses Recreational Drug Use: No Smoking Status: Never a Smoker Recent Foreign Travel: No Contact w/Someone Who Travel: No Recent Infectious Disease Expo: No Recent Hopitalizations: No Immunizations Up To Date Tetanus Booster (TDap): Unknown Seasonal Allergies Seasonal Allergies: No Past Medical History Surgeries: Yes Hysterectomy Respiratory: No Cardiac: No Hypertension Neurological: No Reproductive Disorders: No Female Reproductive Disorders: Menstrual Problems Sexually Transmitted Disease: No HIV/AIDS: No Gastrointestinal: No Musculoskeletal: No Endocrine: No Loss of Vision: Denies Cancer: No Psychosocial: No Integumentary: No Blood Disorders: No Family Medical History No Pertinent Family Hx Physical Exam Vital Signs Vital Signs - First Documented 05/07/18 09:30 Temp 98.0 Pulse 101 Resp 16 B/P (MAP) 173/110 (131) Pulse Ox 99 O2 Delivery Room Air Capillary Refill : Less Than 3 Seconds General Appearance: WD/WN, no apparent distress HEENT: normal ENT inspection Neck: normal inspection Cardiovascular: regular rate, rhythm Respiratory: lungs clear Gastrointestinal: normal bowel sounds, non tender Extremities: normal range of motion, non-tender Neurologic/Psychiatric: no motor/sensory deficits, alert Skin: normal color, warm/dry, other (there is an area of tenderness over the midportion of the right gluteal area. There is no area of erythema, rash, or eschar.) Progress/Results/Core Measures Results/Orders Vital Signs/I&O 05/07/18 09:30 Temp 98.0 Pulse 101 Resp 16 B/P (MAP) 173/110 (131) Pulse Ox 99 O2 Delivery Room Air Blood Pressure Mean: 131 Progress Progress Note : Time: 09:53 Progress Note The patient could not recall her last tetanus. She was given a TDaP I asked patient to employ a Pepcid and Benadryl at home for symptomatic relief. Ice and/or heating pads to the right gluteal area were recommended. I gave her a small prescription for Vicodin. I that she follow-up with her doctor tomorrow and return to the emergency department she had any further problems or questions.. Departure Impression Primary Impression: Spider bite wound Qualified Codes: T63.301A - Toxic effect of unspecified spider venom, accidental (unintentional), initial encounter Disposition: 01 HOME, SELF-CARE Condition: Improved Departure-Patient Inst. Decision time for Depature: 09:55 Referrals: OTONIEL THAKUR DO (PCP) Primary Care Physician EVA NGO APRN (Family) Primary Care Physician Patient Instructions: Insect Bites and Stings (DC) Add. Discharge Instructions: Pepcid and Benadryl for the next 3 days. Vicodin for pain. Follow-up with the [facility] tomorrow for recheck. Return of any problems or questions. All discharge instructions reviewed with patient and/or family. Voiced understanding. NEHAL BRANTLEY MD May 07, 2018 09:54
[2018-05-07] MEDS ORDERED: TETANUS,DIPTH,PERTUSS P/F (BOOSTRIX) 0.5 ML VIAL IM ONE (10:00)
[2018-05-07 10:15] VITALS: BP 173/110
== END 2018-05-07 10:15 | disposition home or self-care (01) ==
LOC: EDUNIT# 09:28 → ER 09:29
DX: T63.301A Toxic effect of unspecified spider venom, accidental (unintentional), initial encounter (principal); I10 Essential (primary) hypertension; Z90.710 Acquired absence of both cervix and uterus
CPT/HCPCS: 90471; 90715; 99284

== ENCOUNTER 2019-07-02 09:06 | Emergency (ER) | payer SELFPAY ==
[~2019-07-02] VITALS: Ht 160 cm; Wt 100.9 kg
[~2019-07-02 09:06] MED LIST changes: +HYDR50TA76; +LORA10TA7; +Sudafed
[2019-07-02] MEDS ORDERED: PANTOPRAZOLE 40 MG (PROTONIX) VIAL IV ONE (09:30)
[2019-07-02] MEDS ORDERED: ASPIRIN 81 MG CHEW (CHILDREN'S ASA) PO ONE (09:30)
[2019-07-02] MEDS ORDERED: NITROGLYCERIN 0.4 MG SL TABS BTL 25'S SL PRN (09:30)
--- NOTE | 2019-07-02 09:37 | ED Abdominal Pain ---
General Chief Complaint: Abdominal/GI Problems Stated Complaint: CHEST PAIN;SOA Source of Information: Patient Exam Limitations: No Limitations History of Present Illness Date Seen by Provider: Jul 02, 2019 Time Seen by Provider: 09:35 Initial Comments The patient presents to ER by private conveyance with chief complaint the past week she's been having some worsening GERD symptoms and for the past 3 or 4 days she's been having some pain in her right lower chest and right upper quadrant abdomen. She says the pain gets worse when she lies down or when she eats food. She's had very poor appetite because of the pain. She's also nauseated. She denies a history of coronary disease smoking but she does take chlorthalidone for hypertension. She has not seen her own doctor for this pain yet. She said it has been going on for the past day or 2 progressively worsening since she decided to come and get checked out. She's had 5 C-sections but no other abdominal surgeries. She rates the pain as an 8 out of 10. Allergies and Home Medications Allergies Coded Allergies: No Known Drug Allergies (Verified , 02/23/07) Patient Home Medication List Home Medication List Reviewed: Yes Review of Systems Review of Systems Constitutional: No chills, No diaphoresis EENTM: No Blurred Vision, No Double Vision Respiratory: Denies Cough, Denies Orthopnea Cardiovascular: See HPI, Chest Pain; Denies Edema, Denies Lightheadedness, Denies Palpitations, Denies Syncope Gastrointestinal: See HPI, Abdominal Pain Genitourinary: Denies Burning, Denies Discharge Musculoskeletal: No back pain, No joint pain Skin: No pruritus, No rash All Other Systems Reviewed Negative Unless Noted: Yes Past Qeepish-Icpexz-Smsfjx Hx Patient Social History Alcohol Use: Denies Use Recreational Drug Use: No Smoking Status: Never a Smoker Recent Foreign Travel: No Contact w/Someone Who Travel: No Recent Hopitalizations: No Immunizations Up To Date Tetanus Booster (TDap): Unknown Seasonal Allergies Seasonal Allergies: No Past Medical History Surgeries: Yes Hysterectomy Respiratory: No Cardiac: No Hypertension Neurological: No Reproductive Disorders: No Female Reproductive Disorders: Menstrual Problems Sexually Transmitted Disease: No HIV/AIDS: No Gastrointestinal: No Musculoskeletal: No Endocrine: No Loss of Vision: Denies Cancer: No Psychosocial: No Integumentary: No Blood Disorders: No Family Medical History No Pertinent Family Hx Physical Exam Vital Signs Vital Signs - First Documented 07/02/19 09:12 Temp 36.6 Pulse 92 Resp 20 B/P (MAP) 150/89 (109) Pulse Ox 100 O2 Delivery Room Air Capillary Refill : Height/Weight/BMI Height: 5'3.00" Weight: 228lbs. oz. 103.099465pe; 38.08 BMI Method:Stated General Appearance: WD/WN, mild distress HEENT: PERRL/EOMI, pharynx normal Respiratory: No chest non-tender (right lower ribs tender to palpation in the midaxillary line); lungs clear, normal breath sounds, no respiratory distress, no accessory muscle use Cardiovascular: normal peripheral pulses, regular rate, rhythm, no edema, no gallop, no murmur Peripheral Pulses: 2+ Left Dors-Pedis (L), 2+ Radial Pulses (L) Gastrointestinal: normal bowel sounds, soft; No rebound; tenderness (mild epigastric and right upper quadrant tenderness to palpation. Negative for Colin sign), other (negative for psoas or other mesenteric signs. Negative for McBurney point tenderness or rebound) Neurologic/Psychiatric: alert, normal mood/affect, oriented x 3 Skin: normal color, warm/dry Progress/Results/Core Measures Results/Orders Lab Results Laboratory Tests Test 07/02/19 09:44 Range/Units White Blood Count 5.2 4.3-11.0 10^3/uL Red Blood Count 4.58 4.35-5.85 10^6/uL Hemoglobin 13.0 11.5-16.0 G/DL Hematocrit 40 35-52 % Mean Corpuscular Volume 88 80-99 FL Mean Corpuscular Hemoglobin 28 25-34 PG Mean Corpuscular Hemoglobin Concent 32 32-36 G/DL Red Cell Distribution Width 13.0 10.0-14.5 % Platelet Count 319 130-400 10^3/uL Mean Platelet Volume 9.1 7.4-10.4 FL Neutrophils (%) (Auto) 54 42-75 % Lymphocytes (%) (Auto) 35 12-44 % Monocytes (%) (Auto) 9 0-12 % Eosinophils (%) (Auto) 2 0-10 % Basophils (%) (Auto) 1 0-10 % Neutrophils # (Auto) 2.8 1.8-7.8 X 10^3 Lymphocytes # (Auto) 1.8 1.0-4.0 X 10^3 Monocytes # (Auto) 0.5 0.0-1.0 X 10^3 Eosinophils # (Auto) 0.1 0.0-0.3 10^3/uL Basophils # (Auto) 0.0 0.0-0.1 10^3/uL Prothrombin Time 13.3 12.2-14.7 SEC INR Comment 1.0 0.8-1.4 Activated Partial Thromboplast Time 28 24-35 SEC Sodium Level 141 135-145 MMOL/L Potassium Level 2.9 L 3.6-5.0 MMOL/L Chloride Level 103 98-107 MMOL/L Carbon Dioxide Level 28 21-32 MMOL/L Anion Gap 10 5-14 MMOL/L Blood Urea Nitrogen 10 7-18 MG/DL Creatinine 0.86 0.60-1.30 MG/DL Estimat Glomerular Filtration Rate > 60 BUN/Creatinine Ratio 12 Glucose Level 104 70-105 MG/DL Calcium Level 8.9 8.5-10.1 MG/DL Corrected Calcium 9.1 8.5-10.1 MG/DL Magnesium Level 1.6 1.6-2.4 MG/DL Total Bilirubin 0.6 0.1-1.0 MG/DL Aspartate Amino Transf (AST/SGOT) 31 5-34 U/L Alanine Aminotransferase (ALT/SGPT) 44 0-55 U/L Alkaline Phosphatase 59 40-136 U/L Myoglobin 107.7 H 10.0-92.0 NG/ML Troponin I < 0.028 <0.028 NG/ML Total Protein 7.5 6.4-8.2 GM/DL Albumin 3.8 3.2-4.5 GM/DL Lipase 8 8-78 U/L Serum Test, Qualitative NEGATIVE NEGATIVE My Orders Orders - MYKE GUTIÉRREZ Ekg Tracing (07/02/19:14) Continuous Ekg Monitoring (07/02/19:14) Cbc With Automated Diff (07/02/19) Magnesium (07/02/19) Chest 1 View, Ap/Pa Only (07/02/19) Cardiac Profile 1 (07/02/19:) Comprehensive Metabolic Panel (07/02/19:) Myoglobin Serum (11/18/19 09:21) Protime With Inr (07/02/19 09:21) Partial Thromboplastin Time (07/02/19 09:21) O2 (07/02/19 09:21) Lipid Panel (07/03/19 06:00) Ed Iv/Invasive Line Start (07/02/19 09:21) Lipase (07/02/19 09:21) Nitroglycerin 0.4 Mg Btl 25's (Nitrostat (07/02/19 09:30) Aspirin Chewable Tablet (Baby Aspirin Ch (07/02/19 09:30) Pantoprazole Injection (Protonix Injecti (07/02/19 09:30) Us Gallbladder 32120 (07/02/19 09:34) Ed Iv/Invasive Line Start (07/02/19 09:34) Ondansetron Injection (Zofran Injectio (07/02/19 09:45) Hcg,Qualitative Serum (07/02/19 09:54) Ua Culture If Indicated (07/02/19 10:00) Potassium Cl 10meq/50ml Ivpb (Kcl 10 Meq (07/02/19 10:30) Ed Iv/Invasive Line Start (07/02/19 10:39) Ns Iv 500 Ml (Sodium Chloride 0.9%) (07/02/19 10:39) Medications Given in ED Current Medications Medications Dose Ordered Sig/Gregg Route Start Time Stop Time Status Last Admin Dose Admin Aspirin 324 mg ONCE ONCE PO 07/02/19 09:30 07/02/19 09:35 DC 07/02/19 09:53 324 MG Nitroglycerin 0.4 mg UD PRN SL 07/02/19 09:30 07/02/19 09:53 0.4 MG Ondansetron HCl 4 mg ONCE ONCE IVP 07/02/19 09:45 07/02/19 09:46 DC 07/02/19 09:52 4 MG Pantoprazole 40 mg ONCE ONCE IV 07/02/19 09:30 07/02/19 09:35 DC 07/02/19 09:52 40 MG Potassium Chloride 50 ml @ 50 mls/hr ONCE ONCE IV 07/02/19 10:30 07/02/19 11:29 07/02/19 10:52 50 MLS/HR Sodium Chloride 500 ml @ 0 mls/hr Q0M ONCE IV 07/02/19 10:39 07/02/19 10:40 DC 07/02/19 10:52 500 MLS/HR Vital Signs/I&O 07/02/19 09:12 Temp 36.6 Pulse 92 Resp 20 B/P (MAP) 150/89 (109) Pulse Ox 100 O2 Delivery Room Air Progress Progress Note #1: Time: 09:56 Progress Note Plan ultrasound of her right upper quadrant abdomen. Gallbladder or ductal disease seems likely. We'll get a lipase, urinalysis, labs chest x-ray to evaluate her ribs. She does not seem to have actual chest pain is much his abdominal pain. She doesn't have a lot of cardiac risk factors except for hypertension. She denies smoking diabetes or early onset familial history. Progress Note #2: Time: 10:21 Progress Note Her nausea is gone. Her pain is significant improved from 8 out of 10 down to a 4 out of 10. Initial ECG Impression Date: Jul 02, 2019 Initial ECG Impression Time: 09:21 Initial ECG Rate: 83 Initial ECG Rhythm: Normal Sinus Initial ECG Intervals: QT (475) Initial ECG Impression: Normal, Nonspecific Changes Comment No ST elevation or depression. Diagnostic Imaging Diagonstic Imaging: Xray Plain Films/CT/US/NM/MRI: chest (1v) Comments NAME: HEATHER ALLEN MED REC#: [id number] PT STATUS: REG ER : 1975 PHYSICIAN: MYKE GUTIÉRREZ MD ADMIT DATE: 07/02/19/ER Draft POSDate of Exam:07/02/19 CHEST 1 VIEW, AP/PA ONLY INDICATION: Chest pain. FINDINGS: No focal infiltrate, failure, effusion or pneumothorax. IMPRESSION: No acute appearing abnormality. Dictated on workstation # [id number] Dict: 07/02/19 1030 Trans: 07/02/19 1033 [id number] Interpreted by: GEOFFREY CLARK Electronically signed by: Reviewed: Reviewed by Me Diagonstic Imaging: Ultrasound Plain Films/CT/US/NM/MRI: abdomen (gallbladder) Comments NAME: HEATHER ALLEN MED REC#: [id number] PT STATUS: REG ER : 1975 PHYSICIAN: MYKE GUTIÉRREZ MD ADMIT DATE: 07/02/19/ER Draft POSDate of Exam:07/02/19 US GALLBLADDER [id number] PROCEDURE: US Gallbladder. TECHNIQUE: Multiple real-time grayscale images were obtained over the right upper quadrant in various projections. INDICATION: Right upper quadrant abdominal pain FINDINGS: Grayscale imaging of the gallbladder reveals no intraluminal filling defect. There is no gallbladder wall thickening or pericholecystic fluid. No intra or extrahepatic biliary ductal dilatation is identified. The pancreas is partially obscured by overlying bowel. No pancreatic, right renal, abdominal aortic or inferior vena caval abnormality is documented. No ascites was noted. IMPRESSION: Unremarkable gallbladder ultrasound. Dictated on workstation # [id number] Dict: 07/02/19 1031 Trans: 07/02/19 1039 STEPHANIE [id number] Interpreted by: GEOFFREY BECKMAN MD Electronically signed by: Reviewed: Reviewed by Me Departure Impression Primary Impression: Biliary colic symptom Disposition: HOME, SELF-CARE Condition: Improved Departure-Patient Inst. Decision time for Depature: 11:25 Referrals: OTONIEL THAKUR DO (PCP) Primary Care Physician EVA NGO APRN (Family) Primary Care Physician SERENA DICKSON DO Patient Instructions: HIDA Scan (DC) Add. Discharge Instructions: Start taking the pantoprazole 20 mg twice a day for the next 4 weeks. Start the Carafate 1 tablet half hour prior to meals and at bedtime, 4 times a day to the next 2 weeks. You may use Tums, Rolaids, Pepto-Bismol etc. for recurrent pain. Do not eat fatty, dairy, spicy foods. Eat foods that are high in fiber such as vegetables. Call Dr. Dickson, General Surgery or your primary care doctor and request follow- up appointment for further workup of your abdominal pain. It would be reasonable to set up a HIDA scan in the next week or 2. Return to the ER if you experience high fever, intractable abdominal pain that does not respond to Tylenol and/or ibuprofen or other worsening symptoms. All discharge instructions reviewed with patient and/or family. Voiced understanding. Scripts Sucralfate (Carafate) 1 Gm Tablet 1 GM PO QIDACHS for 14 Days, #56 TAB 0 Refills Prov: MYKE GUTIÉRREZ 07/02/19 Pantoprazole Sodium (Pantoprazole Sodium) 20 Mg Tablet. 20 MG PO BID for 30 Days, #60 TAB 0 Refills Prov: MYKE GUTIÉRREZ 07/02/19 Work/School Note: Work Release Form Date Seen in the Emergency Department: Jul 02, 2019 Return to Work: Jul 03, 2019 Restrictions: No Restrictions Copy Copies To 1: SERENA DICKSON DO MYKE GUTIÉRREZ Jul 02, 2019 09:37 POS
[2019-07-02] MEDS ORDERED: ONDANSETRON 4 MG/2 ML (SDV) Z0FRAN IVP ONE (09:45)
[2019-07-02 09:50] LABS: BASOPHILS % (AUTO) 1 % (0-10); EOSINOPHILS # (AUTO) 0.1 10^3/uL (0.0-0.3); EOSINOPHILS % (AUTO) 2 % (0-10); HEMATOCRIT 40 % (35-52); LYMPHOCYTES # (AUTO) 1.8 X 10^3 (1.0-4.0); LYMPHOCYTES % (AUTO) 35 % (12-44); MEAN CORPUSCULAR HEMOGLOBIN 28 PG (25-34); MEAN CORPUSCULAR HGB CONC 32 G/DL (32-36); MEAN CORPUSCULAR VOLUME 88 FL (80-99); MEAN PLATELET VOLUME 9.1 FL (7.4-10.4); MONOCYTES # (AUTO) 0.5 X 10^3 (0.0-1.0); MONOCYTES % (AUTO) 9 % (0-12); NEUTROPHILS # (AUTO) 2.8 X 10^3 (1.8-7.8); NEUTROPHILS % (AUTO) 54 % (42-75); PLATELET COUNT 319 10^3/uL (130-400); WHITE BLOOD COUNT 5.2 10^3/uL (4.3-11.0)
[2019-07-02 10:12] LABS: ALANINE AMINOTRANSFERASE 44 U/L (0-55); ALBUMIN 3.8 GM/DL (3.2-4.5); ALKALINE PHOSPHATASE 59 U/L (40-136); BILIRUBIN,TOTAL 0.6 MG/DL (0.1-1.0); BUN/CREATININE RATIO 12; CALCIUM 8.9 MG/DL (8.5-10.1); CARBON DIOXIDE 28 MMOL/L (21-32); CHLORIDE 103 MMOL/L (98-107); CREATININE SERUM 0.86 MG/DL (0.60-1.30); GFR ESTIMATED > 60; GLUCOSE 104 MG/DL (70-105); LIPASE 8 U/L (8-78); MAGNESIUM 1.6 MG/DL (1.6-2.4); POTASSIUM 2.9 MMOL/L (3.6-5.0); SODIUM 141 MMOL/L (135-145); TOTAL PROTEIN 7.5 GM/DL (6.4-8.2)
[2019-07-02 10:13] LABS: PROTHROMBIN TIME PATIENT 13.3 SEC (12.2-14.7)
[2019-07-02] MEDS ORDERED: POTASSIUM CL 10MEQ/50ML IVPB 50 ML IV ONE (10:30)
--- NOTE | 2019-07-02 10:33 | Diagnostic Imaging Report ---
INDICATION: Chest pain. FINDINGS: No focal infiltrate, failure, effusion or pneumothorax. IMPRESSION: No acute appearing abnormality. Dictated by: Dictated on workstation # [id number]
[2019-07-02] MEDS ORDERED: NS IV 500 ML 500 ML IV ONE (10:39)
--- NOTE | 2019-07-02 10:40 | Diagnostic Imaging Report ---
PROCEDURE: US Gallbladder. TECHNIQUE: Multiple real-time grayscale images were obtained over the right upper quadrant in various projections. INDICATION: Right upper quadrant abdominal pain FINDINGS: Grayscale imaging of the gallbladder reveals no intraluminal filling defect. There is no gallbladder wall thickening or pericholecystic fluid. No intra or extrahepatic biliary ductal dilatation is identified. The pancreas is partially obscured by overlying bowel. No pancreatic, right renal, abdominal aortic or inferior vena caval abnormality is documented. No ascites was noted. IMPRESSION: Unremarkable gallbladder ultrasound. Dictated by: Dictated on workstation # [id number]
[2019-07-02] MEDS ORDERED: SUCR1TAB36 PO (11:28)
[2019-07-02] MEDS ORDERED: PANT20TA3 PO (11:28)
[2019-07-02] MEDS ORDERED: POTA-51 PO (11:40)
[2019-07-02] MEDS ORDERED: ONDA4TAB11 PO (11:40)
[2019-07-02] MEDS ORDERED: KETOROLAC 30 MG/ML VIAL IVP ONE (11:45)
[2019-07-02 11:55] VITALS: BP 109/75
== END 2019-07-02 11:55 | disposition home or self-care (01) ==
LOC: EDUNIT# 09:06 → ER 09:07
DX: R07.9 Chest pain, unspecified (principal); R10.11 Right upper quadrant pain; I10 Essential (primary) hypertension; Z90.710 Acquired absence of both cervix and uterus
CPT/HCPCS: 36415; 71045; 76705; 80053; 83690; 83735; 83874; 84484; 84703; 85025; 85610; 85730; 93005

== ENCOUNTER → 2019-08-02 | Outpatient (CLI) | payer OTHER ==
[~2019-08-02] MED LIST changes: +CATHETER FLUSH 10 ML SYR IV PRN; +ONDA4TAB11 PO; +PANT20TA3 PO; +POTA-51 PO; +SUCR1TAB36 PO
--- NOTE | 2019-08-02 11:35 | Diagnostic Imaging Report ---
Clinical indication: Patient with right upper quadrant pain. Comparison: Gallbladder ultrasound dated 07/02/2019. Procedure: The patient was administered 5.01 millicuries of technetium 99m Choletec. After 60 minutes of the images, one can of Ensure was drink followed by another 60 minutes of imaging. A nuclear medicine hepatobiliary scan with ejection fraction was performed. Findings: There is prompt uptake and excretion of radiotracer by the liver. Activity is visible in the gallbladder by 15 minutes and the small bowel by 25 minutes. Ejection fraction of the gallbladder is calculated at 16% (normal >33%). The gallbladder visibly empties on the scans following the ingestion of Ensure. Impression: 1: Abnormal hepatobiliary scan with low gallbladder ejection fraction of 16%. Considerations may include chronic cholecystitis or gallbladder dysmotility. 2: There is no significant cystic duct or common bile duct obstruction. Dictated by: Dictated on workstation # [id number]
== END ==
LOC: CARD 09:05
PROVIDERS: ATTEND Nurse Practitioner Family
DX: R10.11 Right upper quadrant pain (principal)
CPT/HCPCS: 78227

== ENCOUNTER 2019-08-28 05:47 | Outpatient (CLI) | payer OTHER ==
[~2019-08-28] VITALS: Ht 160 cm; Wt 102.0 kg
[~2019-08-28 05:47] MED LIST changes: -CATHETER FLUSH 10 ML SYR IV PRN
[2019-08-28] MEDS ORDERED: CHLO25TA22 PO (12:46)
== END 2019-08-28 13:17 | disposition home or self-care (01) ==
LOC: PREOP 05:47
PROVIDERS: ATTEND Surgery
DX: Z01.818 Encounter for other preprocedural examination (principal)

== ENCOUNTER 2019-08-30 09:15 | Day surgery (SDC) | payer OTHER ==
[2019-08-30] VITALS (12 sets, daily range): BP systolic 104–124; BP diastolic 63–85
[~2019-08-30] VITALS: Ht 160 cm; Wt 102.0 kg
[~2019-08-30 09:15] MED LIST changes: +CHLO25TA22 PO
[2019-08-30] MEDS: LACTATED RINGERS 1,000 ML IV PRN ×2 (09:30→11:35)
[2019-08-30 09:42] LABS: BASOPHILS % (AUTO) 0 % (0-10); EOSINOPHILS # (AUTO) 0.2 10^3/uL (0.0-0.3); EOSINOPHILS % (AUTO) 4 % (0-10); HEMATOCRIT 41 % (35-52); HEMOGLOBIN 13.5 G/DL (11.5-16.0); LYMPHOCYTES # (AUTO) 2.1 X 10^3 (1.0-4.0); LYMPHOCYTES % (AUTO) 39 % (12-44); MEAN CORPUSCULAR HEMOGLOBIN 29 PG (25-34); MEAN CORPUSCULAR HGB CONC 33 G/DL (32-36); MEAN CORPUSCULAR VOLUME 88 FL (80-99); MEAN PLATELET VOLUME 9.6 FL (7.4-10.4); MONOCYTES # (AUTO) 0.6 X 10^3 (0.0-1.0); MONOCYTES % (AUTO) 11 % (0-12); NEUTROPHILS # (AUTO) 2.4 X 10^3 (1.8-7.8); NEUTROPHILS % (AUTO) 46 % (42-75); PLATELET COUNT 336 10^3/uL (130-400); WHITE BLOOD COUNT 5.3 10^3/uL (4.3-11.0)
[2019-08-30] MEDS ORDERED: ceFAZolin 2 GM/50 ML NS 50 ML IV ONE (09:45)
--- NOTE | 2019-08-30 10:02 | Progress Note-Pre Operative ---
Pre-Operative Progress Note H&P Reviewed The H&P was reviewed, patient examined and no changes noted. Date Seen by Provider: Aug 30, 2019 Time Seen by Provider: 10: Date H&P Reviewed: Aug 30, 2019 Time H&P Reviewed: 10:01 Pre-Operative Diagnosis: ruq abd, biliary dyskinesia MARLON NAVARRO DO Aug 30, 2019 10:02
[2019-08-30] MEDS ORDERED: IOPAMIDOL 61% 30 ML (ISOVUE 300) VIAL IV ONE (10:04)
[2019-08-30] MEDS ORDERED: BUP/EPI 0.5% 1:200,000 (SENSORCAINE) 30 ML VIAL ONE (10:04)
[2019-08-30] MEDS ORDERED: SEVOFLURANE (ULTANE) 15 ML INHAL SOLN ONE ×4 (10:33→11:05)
[2019-08-30] MEDS ORDERED: proPOfol 200 MG/20 ML (DIPRIVAN) VIAL IV ONE (10:33)
[2019-08-30] MEDS ORDERED: LIDOCAINE PF 2% 5 ML (XYLOCAINE) VIAL ONE (10:33)
[2019-08-30] MEDS ORDERED: MIDAZOLAM 2 MG/2 ML (VERSED) VIAL ONE (10:35)
[2019-08-30] MEDS ORDERED: fentaNYL INJECTION 100 MCG/2 ML AMP ONE (10:35)
[2019-08-30] MEDS ORDERED: DEXAMETHASONE 10 MG/ML (DECADRON) 1 ML VIAL ONE (11:06)
[2019-08-30] MEDS ORDERED: ONDANSETRON 4 MG/2 ML (SDV) Z0FRAN ONE ×2 (11:06→12:07)
[2019-08-30] MEDS ORDERED: ROCURONIUM 10 MG/ML 5 ML SYRINGE IV ONE (11:06)
[2019-08-30] MEDS ORDERED: GLYCOPYRROLATE 0.2 MG/ML (ROBINUL) 2 ML VIAL ONE (11:35)
[2019-08-30] MEDS ORDERED: NEOSTIGMINE 3 MG/3 ML VIAL ONE (11:35)
[2019-08-30] MEDS ORDERED: DOCU-143 PO (11:37)
[2019-08-30] MEDS ORDERED: ACHD5005 PO (11:37)
--- NOTE | 2019-08-30 11:38 | Discharge Inst-Simple/Standard ---
Discharge Inst-Standard Discharge Medications New, Converted or Re-Newed RX: RX on Chart Patient Instructions/Follow Up Plan of Care/Instructions/FU: 2 weeks Pilar Activity as Tolerated: No Discharge Diet: Regular Diet Other Inst to Patient Follow up Appt: Make appointment for 2 weeks. Instructions: No lifting greater than 10 pounds. No strenuous activity. May shower in 24 hours, no tub bath or soaking. Use incentive spirometer at home as directed. No Smoking Skin/Wound Care: You have special glue over incisions it will fall off on its own. Symptoms to Report: Appetite Changes, Extremity Discoloration, Numbness/Tingling, Swelling Increased, Bleeding Excessive, Eyesight Changes, Pain Increased, Urine Color Change, Constipation(Persistent), Fever over 101 degree F, Pain/Pressure in ches t, Urinating Difficulty, Cough Up/Vomit Blood, Heart Beat Irreg/Pounding, Pain/Pressure in jaw, Vaginal Bleeding Increase, Cramps in feet or legs, Lightheadedness, Pain/Pressure in shoulder, Diarrhea(Persistent), Memory Changes Suddenly, Questions/Concerns, Weight gain consecutive days, Dizziness/Fainting, Nausea/Vomiting, Shortness of Breath, Weight gain over 2 pounds. If eyes or skin turn yellow notify physician. If questions or concerns contact your physician Or seek help at emergency department. MARLON NAVARRO DO Aug 30, 2019 11:38
--- NOTE | 2019-08-30 11:42 | Progress Note-Post Operative ---
Post-Operative Progess Note Surgeon (s)/Bartender Helper (s) Surgeon MARLON NAVARRO DO Bartender Helper: Dr. Vasques Pre-Operative Diagnosis ruq abd, biliary dyskinesia Post-Operative Diagnosis same Procedure & Operative Findings Date of Procedure 08/30/19 Procedure Performed/Findings lap ewelina c ioc Anesthesia Type gen Estimated Blood Loss Estimated blood loss (mL): min Specimens/Packing Specimens Removed gallbladder MARLON NAVARRO DO Aug 30, 2019 11:42
[2019-08-30] MEDS ORDERED: MEPERIDINE (DEMEROL) INJ 50 MG/ML IVP ONE (12:00)
[2019-08-30] MEDS ORDERED: ONDANSETRON 4 MG/2 ML (SDV) Z0FRAN IVP PRN (12:00)
[2019-08-30] MEDS ORDERED: HYDROmorphone 2 MG/ML VIAL (DILAUDID) IV ONE (12:00)
[2019-08-30] MEDS ORDERED: morphine INJ 10 MG/ML 1ML (SYR OR VIAL) IVP ONE (12:00)
[2019-08-30] MEDS ORDERED: morphine INJ 10 MG/ML 1ML (SYR OR VIAL) ONE (12:07)
[2019-08-30] MEDS ORDERED: HYDROmorphone 2 MG/ML VIAL (DILAUDID) ONE (12:30)
--- NOTE | 2019-08-30 13:10 | Diagnostic Imaging Report ---
INDICATION: Fluoroscopy for intraoperative cholangiogram. Patient has low gallbladder ejection fraction. Fluoroscopy was provided in the OR during intraoperative cholangiogram. Contrast is being injected via the cystic duct remnant. Intrahepatic and extrahepatic bile ducts appear to be normal caliber. 21 seconds of fluoroscopic time was utilized. Contrast flows into the duodenum. IMPRESSION: Fluoroscopy for intraoperative cholangiogram. Dictated by: Dictated on workstation # [id number]
[2019-08-30] MEDS ORDERED: HYDROcodone/APAP 5 MG/325 MG (LORTAB) TAB ONE (13:32)
[2019-08-30] MEDS ORDERED: HYDROcodone/APAP 5 MG/325 MG (LORTAB) TAB PO ONE (13:45)
--- NOTE | 2019-08-30 17:34 | OPERATIVE REPORT ---
DATE OF SERVICE: 08/30/2019 PREOPERATIVE DIAGNOSES: Right upper quadrant abdominal pain, biliary dyskinesia. POSTOPERATIVE DIAGNOSES: Right upper quadrant abdominal pain, biliary dyskinesia. PROCEDURE: Laparoscopic cholecystectomy with intraoperative cholangiogram. SURGEON: Marlon Quezada DO ANESTHESIA: General. ESTIMATED BLOOD LOSS: Minimal. COMPLICATIONS: None. INDICATIONS: The patient is a 44-year-old female with abdominal pain and workup consistent with biliary dyskinesia. She understands risks and benefits of procedure and wished to proceed with procedure. Consent was signed and on the chart. DESCRIPTION OF PROCEDURE: The patient was taken to the operating suite, prepped and draped in sterile fashion. Surgical pause was performed. Local anesthetic was infiltrated before incisions made. A 12 mm incision was made above the umbilicus. Cautery was used to dissect down to the fascia, which was then scored, grasped and elevated. The abdomen was then entered. An 0 Vicryl was placed in a dszcst-me-tlyur fashion for closure at the end of the case. A balloon trocar was inserted. Pneumoperitoneum was achieved. Under direct visualization of the laparoscope, a 5 mm trocar was placed in the subxiphoid region and two 5 mm trocars were placed in the right upper quadrant. Gallbladder was grasped, elevated. Some adhesions up to the gallbladder were present. These were taken down with both cautery and blunt dissection. Cystic duct and cystic artery were then dissected out. Clips were placed on the proximal and distal portion of the cystic artery and distal portion of the cystic duct. The cystic duct was then partially transected. Arrow catheter was inserted and cholangiogram was performed. There were no filling defects. Contrast made its way into the duodenum without difficulty. Catheter was removed. Clips were placed on the proximal portion of the cystic duct and the duct and the artery were then transected completely. Hook cautery used to dissect the gallbladder from the gallbladder fossa achieving hemostasis. Once removed, it was placed in an Endobag and removed through the 12 mm trocar site. The abdomen was then irrigated and suctioned with copious amounts of irrigation. The abdomen was then desufflated, the trocars were removed. The 0 Vicryl that was placed at the end of the case was then tied closing the 12 mm fascial defect. The skin was then closed using 4-0 Monocryl in subcuticular fashion. The abdomen was then washed and dried and Skin Affix was placed over the incisions. The patient tolerated procedure well without any complications. Job ID: [id number] DocumentID: [id number] Dictated Date: 08/30/2019 11:51:19 Reptile Farmer Date: 08/30/2019 17:33:38 Dictated By: MARLON QUEZADA DO
== END 2019-08-30 14:50 | disposition home or self-care (01) ==
LOC: SDC 09:15
PROVIDERS: ATTEND Surgery
DX: K81.1 Chronic cholecystitis (principal); K82.8 Other specified diseases of gallbladder; K66.0 Peritoneal adhesions (postprocedural) (postinfection); I10 Essential (primary) hypertension; E66.9 Obesity, unspecified; F41.9 Anxiety disorder, unspecified; F32.9 Major depressive disorder, single episode, unspecified; Z68.39 Body mass index [BMI] 39.0-39.9, adult; Z90.710 Acquired absence of both cervix and uterus; Z79.899 Other long term (current) drug therapy; Z82.49 Family history of ischemic heart disease and other diseases of the circulatory system
CPT/HCPCS: 36415; 85025; 87081; 88304

== ENCOUNTER 2019-09-18 14:15 | Emergency (ER) | payer OTHER ==
[~2019-09-18] VITALS: Ht 160 cm; Wt 90.0 kg
[~2019-09-18 14:15] MED LIST changes: +DOCU-143 PO
[2019-09-18] MEDS ORDERED: ANTACID SUSP 30 ML UDC (MYLANTA) PO ONE (14:30)
[2019-09-18] MEDS ORDERED: LIDOCAINE 2% VISCOUS 15 ML UDC PO ONE (14:30)
[2019-09-18] MEDS ORDERED: ASPIRIN 81 MG CHEW (CHILDREN'S ASA) PO ONE (14:30)
[2019-09-18 14:34] LABS: BASOPHILS % (AUTO) 0 % (0-10); EOSINOPHILS # (AUTO) 0.2 10^3/uL (0.0-0.3); EOSINOPHILS % (AUTO) 3 % (0-10); HEMATOCRIT 43 % (35-52); HEMOGLOBIN 14.2 G/DL (11.5-16.0); LYMPHOCYTES # (AUTO) 2.4 X 10^3 (1.0-4.0); LYMPHOCYTES % (AUTO) 33 % (12-44); MEAN CORPUSCULAR HEMOGLOBIN 29 PG (25-34); MEAN CORPUSCULAR HGB CONC 33 G/DL (32-36); MEAN CORPUSCULAR VOLUME 89 FL (80-99); MEAN PLATELET VOLUME 9.3 FL (7.4-10.4); MONOCYTES # (AUTO) 0.9 X 10^3 (0.0-1.0); MONOCYTES % (AUTO) 12 % (0-12); NEUTROPHILS # (AUTO) 3.8 X 10^3 (1.8-7.8); NEUTROPHILS % (AUTO) 52 % (42-75); PLATELET COUNT 343 10^3/uL (130-400); RED CELL DISTRIBUTION WIDTH 13.6 % (10.0-14.5); WHITE BLOOD COUNT 7.3 10^3/uL (4.3-11.0)
[2019-09-18 14:51] LABS: FIBRIN DEGRADATION PRODUCTS 0.84 UG/ML (0.00-0.49); INR 0.9 (0.8-1.4)
--- NOTE | 2019-09-18 14:52 | ED Chest Pain ---
General Chief Complaint: Chest Pain Stated Complaint: CHEST PAIN Nursing Triage Note: AMB TO ROOM CHEST PAIN IN CENTER OF CHEST. PAIN WORSE WITH INSPIRATION. HAD GALLBLADDER SURG 2 WEEKS AGO,. Nursing Sepsis Screen: No Definite Risk Source: patient Exam Limitations: no limitations History of Present Illness Date Seen by Provider: Sep 18, 2019 Time Seen by Provider: 14:20 Initial Comments Here with one hour of chest pain to the center of her chest that is worse with deep breathing and better with rest. She had gallbladder surgery 2 weeks ago after similar presentation. Denies nausea, vomiting, sweating or weakness. Timing/Duration: 1 hour Severity/Quality: moderate, sharp Location: central Radiation: no radiation Activities at Onset: none Prior CP/Workup: non-cardiac Modifying Factors: improves with rest ASA po BIOLOGICAL SCIENCES INSTRUCTOR: No NTG SL BIOLOGICAL SCIENCES INSTRUCTOR: No Associated Symptoms: No abdominal pain, No back pain, No fever/chills, No nausea/vomiting, No shortness of breath, No weakness Allergies and Home Medications Allergies Coded Allergies: No Known Drug Allergies (Unverified , 08/28/19) Home Medications Chlorthalidone 25 Mg Tablet, 25 MG PO DAILY, (Reported) Docusate Sodium 100 Mg Capsule, 100 MG PO BID Prescribed by: MARLON NAVARRO on 08/30/19 1137 Hydrocodone Bit/Acetaminophen 1 Tab Tab, 1-2 TAB PO Q6H PRN for PAIN-MODERATE Prescribed by: MARLON NAVARRO on 08/30/19 1137 Patient Home Medication List Home Medication List Reviewed: Yes Review of Systems Review of Systems Constitutional: see HPI; No chills, No fever EENTM: No Symptoms Reported Respiratory: No Symptoms Reported Cardiovascular: See HPI; Denies Edema, Denies Lightheadedness Gastrointestinal: Denies Diarrhea, Denies Nausea, Denies Vomiting Genitourinary: No Symptoms Reported Musculoskeletal: no symptoms reported Skin: no symptoms reported All Other Systems Reviewed Negative Unless Noted: Yes Past Bafsrau-Jmzsuy-Jvcoau Hx Past Med/Social Hx: Reviewed Nursing Past Med/Soc Hx Patient Social History Alcohol Use: Denies Use Recreational Drug Use: No Smoking Status: Never a Smoker 2nd Hand Smoke Exposure: No Recent Foreign Travel: No Contact w/Someone Who Travel: No Recent Infectious Disease Expo: No Recent Hopitalizations: No Immunizations Up To Date Tetanus Booster (TDap): Unknown Seasonal Allergies Seasonal Allergies: Yes Past Medical History Surgeries: Yes (CS X5, UMBILICAL HERNIA, KNEE SURGERY, EYE SURGERY) Section, Gallbladder, Hysterectomy Respiratory: No Cardiac: Yes Hypertension Neurological: No Reproductive Disorders: No Female Reproductive Disorders: Menstrual Problems DIRECTOR OF RADIOLOGY History: Hysterectomy Sexually Transmitted Disease: No HIV/AIDS: No Genitourinary: No Gastrointestinal: Yes (ABD PAIN) Chronic Constipation, Gall Bladder Disease Musculoskeletal: Yes (RELATED TO GALLBLADDER) Chronic Back Pain Endocrine: No HEENT: Yes (GLASSES) Loss of Vision: Denies Hearing Impairment: Denies Cancer: No Psychosocial: Yes Anxiety, Depression Integumentary: No Blood Disorders: Yes (AFTER C-SECTIONS ) Adverse Reaction/Blood Tranf: No (HAS HAD BLOOD WITH NO REACTION) Family Medical History Reviewed Nursing Family Hx No Pertinent Family Hx Physical Exam Vital Signs Vital Signs - First Documented 09/18/19 14:17 Temp 36.8 Pulse 83 Resp 18 B/P (MAP) 81/ Pulse Ox 99 O2 Delivery Room Air O2 Flow Rate 0 Capillary Refill : Less Than 3 Seconds Height, Weight, BMI Height: 5'3.00" Weight: 228lbs. oz. 103.683646zw; 35.00 BMI Method:Stated General Appearance: No Apparent Distress, WD/WN HEENT: PERRL/EOMI, Pharynx Normal Neck: Non Tender, Supple Respiratory: Lungs Clear, Normal Breath Sounds Cardiovascular: Regular Rate, Rhythm, No Murmur Gastrointestinal: Soft; No Distended, No Guarding; Tenderness (mild around areas of previous laparoscopic puncture sites.) Extremity: Normal Range of Motion, Non Tender, No Calf Tenderness Neurologic/Psychiatric: Alert, Oriented x3 Skin: Normal Color, Warm/Dry Progress/Results/Core Measures Results/Orders Lab Results Laboratory Tests Test 09/18/19 14:21 09/18/19 14:25 Range/Units Urine Opiates Screen NEGATIVE NEGATIVE Urine Oxycodone Screen NEGATIVE NEGATIVE Urine Methadone Screen NEGATIVE NEGATIVE Urine Propoxyphene Screen NEGATIVE NEGATIVE Urine Barbiturates Screen NEGATIVE NEGATIVE Ur Tricyclic Antidepressants Screen NEGATIVE NEGATIVE Urine Phencyclidine Screen NEGATIVE NEGATIVE Urine Amphetamines Screen NEGATIVE NEGATIVE Urine Methamphetamines Screen NEGATIVE NEGATIVE Urine Benzodiazepines Screen NEGATIVE NEGATIVE Urine Cocaine Screen NEGATIVE NEGATIVE Urine Cannabinoids Screen NEGATIVE NEGATIVE White Blood Count 7.3 4.3-11.0 10^3/uL Red Blood Count 4.86 4.35-5.85 10^6/uL Hemoglobin 14.2 11.5-16.0 G/DL Hematocrit 43 35-52 % Mean Corpuscular Volume 89 80-99 FL Mean Corpuscular Hemoglobin 29 25-34 PG Mean Corpuscular Hemoglobin Concent 33 32-36 G/DL Red Cell Distribution Width 13.6 10.0-14.5 % Platelet Count 343 130-400 10^3/uL Mean Platelet Volume 9.3 7.4-10.4 FL Neutrophils (%) (Auto) 52 42-75 % Lymphocytes (%) (Auto) 33 12-44 % Monocytes (%) (Auto) 12 0-12 % Eosinophils (%) (Auto) 3 0-10 % Basophils (%) (Auto) 0 0-10 % Neutrophils # (Auto) 3.8 1.8-7.8 X 10^3 Lymphocytes # (Auto) 2.4 1.0-4.0 X 10^3 Monocytes # (Auto) 0.9 0.0-1.0 X 10^3 Eosinophils # (Auto) 0.2 0.0-0.3 10^3/uL Basophils # (Auto) 0.0 0.0-0.1 10^3/uL Prothrombin Time 13.0 12.2-14.7 SEC INR Comment 0.9 0.8-1.4 Activated Partial Thromboplast Time 28 24-35 SEC D-Dimer 0.84 H 0.00-0.49 UG/ML Sodium Level 141 135-145 MMOL/L Potassium Level 3.0 L 3.6-5.0 MMOL/L Chloride Level 103 98-107 MMOL/L Carbon Dioxide Level 27 21-32 MMOL/L Anion Gap 11 5-14 MMOL/L Blood Urea Nitrogen 15 7-18 MG/DL Creatinine 1.16 0.60-1.30 MG/DL Estimat Glomerular Filtration Rate > 60 BUN/Creatinine Ratio 13 Glucose Level 103 70-105 MG/DL Calcium Level 9.6 8.5-10.1 MG/DL Corrected Calcium 9.4 8.5-10.1 MG/DL Magnesium Level 1.6 1.6-2.4 MG/DL Total Bilirubin 0.7 0.1-1.0 MG/DL Aspartate Amino Transf (AST/SGOT) 23 5-34 U/L Alanine Aminotransferase (ALT/SGPT) 41 0-55 U/L Alkaline Phosphatase 90 40-136 U/L Myoglobin 88.0 10.0-92.0 NG/ML Troponin I < 0.028 <0.028 NG/ML Total Protein 8.4 H 6.4-8.2 GM/DL Albumin 4.3 3.2-4.5 GM/DL My Orders Orders - DG DESHPANDE MD Cbc With Automated Diff (09/18/19 14:17) Magnesium (09/18/19 14:17) Chest 1 View, Ap/Pa Only (09/18/19 14:17) Ekg Tracing (09/18/19 14:17) Comprehensive Metabolic Panel (09/18/19 14:17) Myoglobin Serum (09/18/19 14:17) Protime With Inr (09/18/19 14:17) Partial Thromboplastin Time (09/18/19 14:17) O2 (09/18/19 14:17) Monitor-Rhythm Ecg Trace Only (09/18/19 14:17) Lipid Panel (09/19/19 06:00) Ed Iv/Invasive Line Start (09/18/19 14:17) Aspirin Chewable Tablet (Baby Aspirin Ch (09/18/19 14:30) Lidocaine 2% Viscous 15 Ml (Xylocaine Vi (09/18/19 14:30) Antacid Suspension (Mylanta Suspension (09/18/19 14:30) Troponin I (09/18/19 14:25) Fibrin Degradation Products (09/18/19 14:25) Drug Screen Stat (Urine) (09/18/19 14:45) Ct Angio Chest W (09/18/19 15:13) Ed Iv/Invasive Line Start (09/18/19 15:13) Lactated Ringers (Lr 1000 Ml Iv Solution (09/18/19 15:13) Iohexol Injection (Omnipaque 350 Mg/Ml 1 (09/18/19 15:45) Received Contrast (Hold Metformin- Contr (09/18/19 15:45) Ns (Ivpb) (Sodium Chloride 0.9% Ivpb Bag (09/18/19 15:45) Medications Given in ED Current Medications Medications Dose Ordered Sig/Gregg Route Start Time Stop Time Status Last Admin Dose Admin Al Hydrox/Mg Hydrox/Simethicone 30 ml ONCE ONCE PO 09/18/19 14:30 09/18/19 14:31 DC 09/18/19 14:33 30 ML Aspirin 324 mg ONCE ONCE PO 09/18/19 14:30 09/18/19 14:31 DC 09/18/19 14:33 324 MG Iohexol 100 ml ONCE ONCE IV 09/18/19 15:45 09/18/19 15:47 DC 09/18/19 15:44 100 ML Lactated Ringer's 1,000 ml @ 0 mls/hr Q0M ONCE IV 09/18/19 15:13 09/18/19 15:14 DC 09/18/19 16:30 1,000 MLS/HR Lidocaine HCl 15 ml ONCE ONCE PO 09/18/19 14:30 09/18/19 14:31 DC 09/18/19 14:33 15 ML Sodium Chloride 100 ml ONCE ONCE IV 09/18/19 15:45 09/18/19 15:47 DC 09/18/19 15:44 80 ML Vital Signs/I&O 09/18/19 09/18/19 09/18/19 14:17 14:17 14:20 Temp 36.8 Pulse 83 Resp 18 B/P (MAP) 81/ Pulse Ox 99 O2 Delivery Room Air Room Air O2 Flow Rate 0 122.00 Progress Progress Note : Progress Note Seen and evaluated. IV, labs, EKG and chest x-ray ordered. ASA 324 mg by mouth ordered. GI cocktail ordered. Monitor patient. 1600: CT angiogram of the chest ordered due to the slightly elevated d-dimer. Overall pain resolved and she feels much better. 1744: Overall still remains improved. CT scan does not show any pulmonary emboli but she does have multiple small pulmonary nodules. This was discussed with the patient including her need for follow-up because she will likely need repeat scan within one year. I will send a copy of the chart over to the clinic so that they can continue to follow her on that. I also instructed the patient to follow-up in the clinic within the next one to 2 weeks for recheck and further evaluation and to establish treatment plan for the nodules. Discharged home with return precautions. Patient verbalize understanding instructions and agreement with plan Initial ECG Impression Date: Sep 18, 2019 Initial ECG Impression Time: 14:20 Initial ECG Rate: 77 Initial ECG Rhythm: Normal Sinus Initial ECG Comparisson: Unchanged (07/02/19) Comment Sinus rhythm with normal axis. No evidence of ST elevation MT. LVH noted. Left atrial abnormality noted. Interpreted by me. Diagnostic Imaging Diagonstic Imaging: Xray Plain Films/CT/US/NM/MRI: chest Comments [facility], [place] NAME: HEATHER ALLEN [facility] REC#: [id number] PT STATUS: REG ER : 1975 PHYSICIAN: DG DESHPANDE MD ADMIT DATE: 09/18/19/ER Draft Date of Exam:09/18/19 CHEST 1 VIEW, AP/PA ONLY INDICATION: Chest pain, worse with inspiration. TIME OF EXAM: 02:57 p.m. COMPARISON: Correlation is made with prior chest from 07/02/2019. FINDINGS: The heart size is normal. The pulmonary vascularity is unremarkable. The lungs are clear. No infiltrate, effusion or pneumothorax is detected. IMPRESSION: No acute cardiopulmonary process is detected. Dictated on workstation # [id number] Dict: 09/18/19 1503 Trans: 09/18/19 1505 [facility] [id number] Interpreted by: CYNTHIA JAIME MD Electronically signed by: Diagonstic Imaging: CT Plain Films/CT/US/NM/MRI: chest Comments [facility], [place] NAME: HEATHER ALLEN [facility] REC#: [id number] PT STATUS: REG ER : 1975 PHYSICIAN: DG DESHPANDE MD ADMIT DATE: 09/18/19/ER Draft Date of Exam:09/18/19 CT ANGIO CHEST W PROCEDURE: CT angiography of the chest with contrast. TECHNIQUE: Multiple contiguous axial images were obtained through the chest after uneventful bolus administration of intravenous contrast. 3D reconstructed CTA MIP acquisitions were also performed. Auto Exposure Controls were utilized during the CT exam to meet ALARA standards for radiation dose reduction. INDICATION: Chest pain. Shortness of air. COMPARISON: None. FINDINGS: There is no evidence of pulmonary embolus to the first subsegmental division of the pulmonary arteries. Heart size is within normal limits. There is no large pericardial effusion. No pathologically enlarged or morphologically abnormal adenopathy is seen within the mediastinum, deven, nor axilla. Evaluation of the lung miguel demonstrates no focal consolidation, large effusion, nor pneumothorax. There is a subtle groundglass micronodular density within the posterior margins of the right lower lobe that measures 4 mm (image 87, series 3). Punctate 2 mm micronodule is also noted within the posterior medial margins of the right upper lobe (image 52, series 3). Additionally, there is focal collection of multiple micronodular densities within the lateral margins of the left upper lobe. These appear to be oriented in tree in bud distribution. Largest of the micronodules measures approximately 2 mm in diameter (image 58, series 3). Osseous structures show no acute abnormalities. No lytic or blastic bony lesions are seen. Included portions of the upper abdomen show hypodense appearance to the liver suggestive of underlying hepatic steatosis. IMPRESSION: 1. No acute pulmonary embolus to the first subsegmental division of the pulmonary arteries. 2. Multiple bilateral pulmonary micronodular densities, which may be on an inflammatory basis. Risk factor stratification is recommended. Please see below for further follow-up recommendations. PULMONARY NODULE FOLLOW-UP Single nodule: <6 mm: * Low risk patient - no routine follow up * High risk patient - optional at 12 months 6-8 mm in size: * Low risk patient - Ct at 6-12 months, then consider at 18-24 months * High risk patient - Ct at 6-12 months, then at 18-24 months >8 mm * Low risk patient - consider CT at 3 months, PET/CT or tissue sampling * High risk patient - consider CT at 3 months, PET/CT, or tissue sampling (Certain patients at high risk with suspicious nodule morphology, upper lobe location, or both may warrant 12-month follow-up) Multiple nodules: <6 mm: * Low risk patient - no routine follow up * High risk patient - optional CT at 12 months 6-8 mm in size: * Low risk patient - Ct at 3-6 months, then consider CT at 18-24 months * High risk patient - CT at 3-6 months, then at 18-24 months >8 mm: * Low risk patient - CT at 3-6 months, then consider CT at 18-24 months * High risk patient - CT at 3-6 months, then at 18-24 months (Use most suspicious nodule as guide to management. Follow up interval may vary according to size and risk) Subsolid Nodules: <6 mm: * Ground glass - no routine follow up. (In certain suspicious nodules <6 mm, consider follow-up at 2 and 4 years. If solid component(s) or growth develops, consider resection.) * Part solid - no routine follow up. (In practice, part-solid nodules cannot be defined as such until 6mm or greater, and nodules <6 mm do not usually require follow-up. Persistent part-solid nodules with solid components 6mm or greater should be considered highly suspicious) * Multiple - Consider at 3-6 months. If stable, consider CT at 2 and 4 years. (Multiple <6mm pure ground-glass nodules are usually benign, but consider follow-up in selected patients at high risk at 2 and 4 years.) 6 mm or greater: * Ground glass - CT at 6-12 months to confirm persistence, then CT every 2 years until 5 years * Part solid - CT at 3-6 months to confirm persistence. If unchanged and solid component remains <6 mm, annual CT should be performed for 5 years * Multiple - CT at 3-6 months. Subsequent management based on the most suspicious nodule(s). Dictated on workstation # [id number] Dict: 09/18/19 1547 Trans: 09/18/19 1558 [id number] Interpreted by: LUIS MANUEL EAGLE MD Electronically signed by: Departure Impression Primary Impression: Chest pain Qualified Codes: R07.9 - Chest pain, unspecified Additional Impressions: Epigastric pain Pulmonary nodules/lesions, multiple Disposition: 01 HOME, SELF-CARE Condition: Improved Departure-Patient Inst. Decision time for Depature: 17:46 Referrals: OTONIEL THAKUR DO (PCP) Primary Care Physician RAHEEL HADLEY APRN (Family) Primary Care Physician MARLON NAVARRO DO Patient Instructions: Acute Abdomen (Belly Pain), Adult (DC), Chest Pain (DC), Multiple Pulmonary Nodules Add. Discharge Instructions: All discharge instructions reviewed with patient and/or family. Voiced understanding. You may take Pepcid or the generic famotidine 20 mg once or twice daily for the next one to 2 weeks and then as needed daily for stomach upset. Follow-up with your doctor and discuss with them regarding the multiple pulmonary nodules that were noted on CT scan. You will likely need repeat CT scan in the next 6-12 months per your doctor's recommendations. You should also follow up regarding the chest discomfort. Return for worse pain, fever, vomiting, weakness, breathing problems or other concerns as needed. Clear liquid or light diet for the next few days and then advance as tolerated. Avoid fatty or spicy foods. Copy Copies To 1: OTONIEL THAKUR TIMOTHY D MD Sep 18, 2019 14:52
[2019-09-18 14:55] LABS: ALANINE AMINOTRANSFERASE 41 U/L (0-55); ALBUMIN 4.3 GM/DL (3.2-4.5); ALKALINE PHOSPHATASE 90 U/L (40-136); BILIRUBIN,TOTAL 0.7 MG/DL (0.1-1.0); BUN/CREATININE RATIO 13; CALCIUM 9.6 MG/DL (8.5-10.1); CARBON DIOXIDE 27 MMOL/L (21-32); CHLORIDE 103 MMOL/L (98-107); CREATININE SERUM 1.16 MG/DL (0.60-1.30); GFR ESTIMATED > 60; GLUCOSE 103 MG/DL (70-105); MAGNESIUM 1.6 MG/DL (1.6-2.4); SODIUM 141 MMOL/L (135-145); TOTAL PROTEIN 8.4 GM/DL (6.4-8.2)
[2019-09-18 15:02] LABS: AMPHETAMINE SCREEN, URINE NEGATIVE (NEGATIVE); BARBITURATE SCREEN URINE NEGATIVE (NEGATIVE); BENZODIAZEPINES SCREEN URINE NEGATIVE (NEGATIVE); CANNABINOID SCREEN, URINE NEGATIVE (NEGATIVE); COCAINE SCREEN URINE NEGATIVE (NEGATIVE); METHADONE STAT NEGATIVE (NEGATIVE); METHAMPHETAMINE SCREEN URINE S NEGATIVE (NEGATIVE); OPIATE SCREEN URINE NEGATIVE (NEGATIVE); OXYCODONE STAT NEGATIVE (NEGATIVE); PROPOXYPHENE STAT NEGATIVE (NEGATIVE); TRICYCLIC ANTIDEPRESSANTS SCRE NEGATIVE (NEGATIVE)
--- NOTE | 2019-09-18 15:05 | Diagnostic Imaging Report ---
INDICATION: Chest pain, worse with inspiration. TIME OF EXAM: 02:57 p.m. COMPARISON: Correlation is made with prior chest from 07/02/2019. FINDINGS: The heart size is normal. The pulmonary vascularity is unremarkable. The lungs are clear. No infiltrate, effusion or pneumothorax is detected. IMPRESSION: No acute cardiopulmonary process is detected. Dictated by: Dictated on workstation # [id number]
[2019-09-18] MEDS ORDERED: LACTATED RINGERS 1,000 ML IV ONE (15:13)
[2019-09-18] MEDS ORDERED: NS 100 ML (IVPB) BAG IV ONE (15:45)
[2019-09-18] MEDS ORDERED: IOHEXOL 350 MG/ML 100 ML (OMNIPAQUE 350) VIAL IV ONE (15:45)
[2019-09-18] MEDS ORDERED: HOLD METFORMIN - RECEIVED CONTRAST 20 ML VIAL IV SCH (15:45)
--- NOTE | 2019-09-18 15:58 | Diagnostic Imaging Report ---
PROCEDURE: CT angiography of the chest with contrast. TECHNIQUE: Multiple contiguous axial images were obtained through the chest after uneventful bolus administration of intravenous contrast. 3D reconstructed CTA MIP acquisitions were also performed. Auto Exposure Controls were utilized during the CT exam to meet ALARA standards for radiation dose reduction. INDICATION: Chest pain. Shortness of air. COMPARISON: None. FINDINGS: There is no evidence of pulmonary embolus to the first subsegmental division of the pulmonary arteries. Heart size is within normal limits. There is no large pericardial effusion. No pathologically enlarged or morphologically abnormal adenopathy is seen within the mediastinum, deven, nor axilla. Evaluation of the lung miguel demonstrates no focal consolidation, large effusion, nor pneumothorax. There is a subtle groundglass micronodular density within the posterior margins of the right lower lobe that measures 4 mm (image 87, series 3). Punctate 2 mm micronodule is also noted within the posterior medial margins of the right upper lobe (image 52, series 3). Additionally, there is focal collection of multiple micronodular densities within the lateral margins of the left upper lobe. These appear to be oriented in tree in bud distribution. Largest of the micronodules measures approximately 2 mm in diameter (image 58, series 3). Osseous structures show no acute abnormalities. No lytic or blastic bony lesions are seen. Included portions of the upper abdomen show hypodense appearance to the liver suggestive of underlying hepatic steatosis. IMPRESSION: 1. No acute pulmonary embolus to the first subsegmental division of the pulmonary arteries. 2. Multiple bilateral pulmonary micronodular densities, which may be on an inflammatory basis. Risk factor stratification is recommended. Please see below for further follow-up recommendations. PULMONARY NODULE FOLLOW-UP Single nodule: <6 mm: * Low risk patient - no routine follow up * High risk patient - optional at 12 months 6-8 mm in size: * Low risk patient - Ct at 6-12 months, then consider at 18-24 months * High risk patient - Ct at 6-12 months, then at 18-24 months >8 mm * Low risk patient - consider CT at 3 months, PET/CT or tissue sampling * High risk patient - consider CT at 3 months, PET/CT, or tissue sampling (Certain patients at high risk with suspicious nodule morphology, upper lobe location, or both may warrant 12-month follow-up) Multiple nodules: <6 mm: * Low risk patient - no routine follow up * High risk patient - optional CT at 12 months 6-8 mm in size: * Low risk patient - Ct at 3-6 months, then consider CT at 18-24 months * High risk patient - CT at 3-6 months, then at 18-24 months >8 mm: * Low risk patient - CT at 3-6 months, then consider CT at 18-24 months * High risk patient - CT at 3-6 months, then at 18-24 months (Use most suspicious nodule as guide to management. Follow up interval may vary according to size and risk) Subsolid Nodules: <6 mm: * Ground glass - no routine follow up. (In certain suspicious nodules <6 mm, consider follow-up at 2 and 4 years. If solid component(s) or growth develops, consider resection.) * Part solid - no routine follow up. (In practice, part-solid nodules cannot be defined as such until 6mm or greater, and nodules <6 mm do not usually require follow-up. Persistent part-solid nodules with solid components 6mm or greater should be considered highly suspicious) * Multiple - Consider at 3-6 months. If stable, consider CT at 2 and 4 years. (Multiple <6mm pure ground-glass nodules are usually benign, but consider follow-up in selected patients at high risk at 2 and 4 years.) 6 mm or greater: * Ground glass - CT at 6-12 months to confirm persistence, then CT every 2 years until 5 years * Part solid - CT at 3-6 months to confirm persistence. If unchanged and solid component remains <6 mm, annual CT should be performed for 5 years * Multiple - CT at 3-6 months. Subsequent management based on the most suspicious nodule(s). Dictated by: Dictated on workstation # [id number]
[2019-09-18 17:56] VITALS: BP 131/85
== END 2019-09-18 18:03 | disposition home or self-care (01) ==
LOC: EDUNIT# 14:15 → ER 14:16
DX: R07.89 Other chest pain (principal); R10.13 Epigastric pain; R91.8 Other nonspecific abnormal finding of lung field; I10 Essential (primary) hypertension
CPT/HCPCS: 36415; 71045; 71275; 80053; 80306; 83735; 83874; 84484; 85025; 85379; 85610; 85730; 93005; 93041

== ENCOUNTER 2019-12-31 12:29 | Outpatient (CLI) | payer OTHER | END 2019-12-31 13:25 | disposition home or self-care (01) | LOC: SLEEP 12:29 | PROVIDERS: ATTEND Nurse Practitioner Family | DX: G47.33 Obstructive sleep apnea (adult) (pediatric) (principal); J45.909 Unspecified asthma, uncomplicated; J30.9 Allergic rhinitis, unspecified; G47.10 Hypersomnia, unspecified; R91.8 Other nonspecific abnormal finding of lung field ==

== ENCOUNTER → 2020-01-04 | Outpatient (CLI) | payer OTHER ==
[~2020-01-04] MED LIST changes: +RT-ALBUTEROL SULF 2.5 MG/3 ML PRE-MIX VIAL INH ONE; +RT-ALBUTEROL SULF 2.5 MG/3 ML PRE-MIX VIAL ONE
== END ==
LOC: RT 10:27
PROVIDERS: ATTEND Nurse Practitioner Family
DX: J45.909 Unspecified asthma, uncomplicated (principal); G47.33 Obstructive sleep apnea (adult) (pediatric); G47.10 Hypersomnia, unspecified
CPT/HCPCS: 94060; 94726; 94729

== ENCOUNTER → 2020-03-24 | Outpatient (CLI) | payer OTHER ==
[~2020-03-24] MED LIST changes: +HOLD METFORMIN - RECEIVED CONTRAST 20 ML VIAL IV SCH; +IOHEXOL 350 MG/ML 100 ML (OMNIPAQUE 350) VIAL IV ONE; +NS 100 ML (IVPB) BAG IV ONE; -RT-ALBUTEROL SULF 2.5 MG/3 ML PRE-MIX VIAL INH ONE; -RT-ALBUTEROL SULF 2.5 MG/3 ML PRE-MIX VIAL ONE
--- NOTE | 2020-03-24 09:28 | Diagnostic Imaging Report ---
EXAMINATION: CT Chest with intravenous contrast. TECHNIQUE: Multiple contiguous axial images were obtained through the chest after the uneventful administration of intravenous contrast. All CT scans use one or more of the following dose optimizing techniques: automated exposure control, MA and/or KvP adjustment based on a patient size and exam type, or iterative reconstruction. HISTORY: Cough and chest tightness. COMPARISON: 09/18/2019 FINDINGS: There is peripheral groundglass in the right middle lobe and lingula suggestive of infection. No edema. Many of the previously seen nodules have resolved. No pleural effusion. No pneumothorax. No suspicious nodules. There is no axillary or supraclavicular lymphadenopathy. There is no mediastinal lymphadenopathy. Heart size is normal. There are no coronary artery calcifications. No pericardial effusion. Aorta is normal in caliber. Limited views of the upper abdomen show the gallbladder to be absent. There are no suspicious osseus lesions. IMPRESSION: 1. New peripheral groundglass in the right middle lobe and lingula suggestive of a viral infection including Covid 19. Dictated by: Dictated on workstation # [id number]
== END ==
LOC: RAD 08:37
PROVIDERS: ATTEND Nurse Practitioner Family
DX: R91.8 Other nonspecific abnormal finding of lung field (principal); R05 Cough; R07.89 Other chest pain
CPT/HCPCS: 71260

== ENCOUNTER → 2020-05-08 | Outpatient (CLI) | payer OTHER ==
[~2020-05-08] MED LIST changes: -HOLD METFORMIN - RECEIVED CONTRAST 20 ML VIAL IV SCH; -IOHEXOL 350 MG/ML 100 ML (OMNIPAQUE 350) VIAL IV ONE; -NS 100 ML (IVPB) BAG IV ONE; +PANT20TA18 PO; -PANT20TA3 PO
--- NOTE | 2020-05-08 11:12 | Diagnostic Imaging Report ---
Indication: Cough and dyspnea PA and lateral views of the chest obtained with comparison made study of 09/18/2019. FINDINGS: Heart size and pulmonary vascularity are within normal limits, and the lungs are clear, bilaterally. IMPRESSION: Unremarkable chest. Dictated by: Dictated on workstation # [id number]
== END ==
LOC: RAD 10:46
PROVIDERS: ATTEND Nurse Practitioner Family
DX: J30.9 Allergic rhinitis, unspecified (principal); J45.909 Unspecified asthma, uncomplicated; R91.8 Other nonspecific abnormal finding of lung field; Z20.828 Contact with and (suspected) exposure to other viral communicable diseases
CPT/HCPCS: 71046

== ENCOUNTER 2020-09-02 08:42 | Emergency (ER) | payer MEDICAID, OTHER ==
[~2020-09-02] VITALS: Ht 160 cm; Wt 105.0 kg
[2020-09-02 09:11] LABS: BASOPHILS # (AUTO) 0.1 10^3/uL (0.0-0.1); BASOPHILS % (AUTO) 1 % (0-10); EOSINOPHILS # (AUTO) 0.1 10^3/uL (0.0-0.3); EOSINOPHILS % (AUTO) 1 % (0-10); HEMATOCRIT 42 % (35-52); HEMOGLOBIN 13.8 g/dL (11.5-16.0); LYMPHOCYTES # (AUTO) 1.7 10^3/uL (1.0-4.0); LYMPHOCYTES % (AUTO) 31 % (12-44); MEAN CORPUSCULAR HEMOGLOBIN 30 pg (25-34); MEAN CORPUSCULAR HGB CONC 33 g/dL (32-36); MEAN CORPUSCULAR VOLUME 91 fL (80-99); MEAN PLATELET VOLUME 10.2 fL (9.0-12.2); MONOCYTES # (AUTO) 0.5 10^3/uL (0.0-1.0); MONOCYTES % (AUTO) 10 % (0-12); NEUTROPHILS % (AUTO) 57 % (42-75); PLATELET COUNT 258 10^3/uL (130-400); WHITE BLOOD COUNT 5.4 10^3/uL (4.3-11.0)
[2020-09-02] MEDS ORDERED: ASPIRIN 81 MG CHEW (CHILDREN'S ASA) PO ONE (09:15)
[2020-09-02] MEDS ORDERED: KETOROLAC 30 MG/ML VIAL IVP ONE (09:15)
[2020-09-02 09:19] LABS: CHLORIDE 109 MMOL/L (98-107); POTASSIUM 4.1 MMOL/L (3.6-5.0); SODIUM 139 MMOL/L (135-145)
[2020-09-02 09:20] LABS: INR 0.9 (0.8-1.4)
--- NOTE | 2020-09-02 09:20 | Diagnostic Imaging Report ---
Indication: Chest pain x2 weeks Portable chest 9:08 AM Heart size and pulmonary vascularity are normal. Lungs are clear. There are no effusions or pneumothoraces. IMPRESSION: Negative chest Dictated by: Dictated on workstation # [id number]
[2020-09-02 09:21] LABS: CALCIUM 8.8 MG/DL (8.5-10.1)
[2020-09-02 09:22] LABS: GLUCOSE 100 MG/DL (70-105)
[2020-09-02 09:23] LABS: BILIRUBIN,TOTAL 0.9 MG/DL (0.1-1.0); CARBON DIOXIDE 23 MMOL/L (21-32)
[2020-09-02 09:25] LABS: ALKALINE PHOSPHATASE 85 U/L (40-136); CREATININE SERUM 0.92 MG/DL (0.60-1.30); GFR ESTIMATED > 60
[2020-09-02 09:26] LABS: BUN/CREATININE RATIO 13
[2020-09-02 09:28] LABS: ALANINE AMINOTRANSFERASE 33 U/L (0-55); MAGNESIUM 1.9 MG/DL (1.6-2.4)
--- NOTE | 2020-09-02 10:20 | NUR ---
IN TALKING TO THE PT AT THIS TIME.
[2020-09-02] MEDS ORDERED: HOLD METFORMIN - RECEIVED CONTRAST 20 ML VIAL IV SCH (10:45)
[2020-09-02] MEDS ORDERED: CATHETER FLUSH 10 ML SYR IV PRN (10:45)
[2020-09-02] MEDS ORDERED: IOHEXOL 350 MG/ML 100 ML (OMNIPAQUE 350) VIAL IV ONE (10:45)
[2020-09-02] MEDS ORDERED: NS 100 ML (IVPB) BAG IV ONE (10:45)
--- NOTE | 2020-09-02 11:08 | Diagnostic Imaging Report ---
PROCEDURE: CT angiography of the chest with contrast. TECHNIQUE: Multiple contiguous axial images were obtained through the chest after uneventful bolus administration of intravenous contrast. 3D reconstructed CTA MIP acquisitions were also performed. Auto Exposure Controls were utilized during the CT exam to meet ALARA standards for radiation dose reduction. INDICATION: Chest and back pain Lungs are clear. There are no effusions or pneumothoraces. There is no right ventricular strain. The aorta appears normal. There are no pulmonary emboli seen. IMPRESSION: Negative CTA chest. Dictated by: Dictated on workstation # [id number]
[2020-09-02] MEDS ORDERED: PRD20T PO (11:31)
--- NOTE | 2020-09-02 11:32 | ED Chest Pain ---
General Chief Complaint: Chest Pain Stated Complaint: CP Nursing Triage Note: CHEST PAIN AND MID BACK PAIN OFF AND ON X2 WEEKS. STATES IT FEELS LIKE WHEN SHE HAD PNEUMONIA. Nursing Sepsis Screen: No Definite Risk Source: patient Exam Limitations: no limitations History of Present Illness Date Seen by Provider: Sep 02, 2020 Time Seen by Provider: 18:45 Initial Comments This 45-year-old woman presents to the emergency room with complaints of left upper chest pain that appears deep in her chest, more toward the posterior aspect. Pain is worse with inspiration. It is associated with a sensation of racing heart. She reports being treated for strep throat about 2 weeks ago. A COVID-19 test was performed at that time and was negative. She denies any cough, headache, nausea, vomiting, shortness of breath, fever, or other symptoms of acute infectious illness. She comments that this feels similar to prior episode of pneumonia. Symptoms have been present for a couple of days.She has not taken any medications yet to treat this pain. Allergies and Home Medications Allergies Coded Allergies: No Known Drug Allergies (Unverified , 08/28/19) Home Medications Chlorthalidone 25 Mg Tablet, 25 MG PO DAILY, (Reported) Docusate Sodium 100 Mg Capsule, 100 MG PO BID Prescribed by: MARLON NAVARRO on 08/30/19 1137 Hydrocodone Bit/Acetaminophen 1 Tab Tab, 1-2 TAB PO Q6H PRN for PAIN-MODERATE Prescribed by: MARLON NAVARRO on 08/30/19 1137 Prednisone 20 Mg Tab, 40 MG PO DAILY Prescribed by: SOPHIA HARRIS on 09/02/20 1131 Patient Home Medication List Home Medication List Reviewed: Yes Review of Systems Review of Systems Constitutional: no symptoms reported EENTM: No Symptoms Reported Respiratory: See HPI Cardiovascular: See HPI Gastrointestinal: No Symptoms Reported Genitourinary: No Symptoms Reported Musculoskeletal: no symptoms reported Skin: no symptoms reported Psychiatric/Neurological: No Symptoms Reported Endocrine: No Symptoms Reported Hematologic/Lymphatic: No Symptoms Reported Past Sjmapvr-Pehkyu-Psohis Hx Past Med/Social Hx: Reviewed Nursing Past Med/Soc Hx Patient Social History Smoking Status: Never a Smoker 2nd Hand Smoke Exposure: No Recent Infectious Disease Expo: No Recent Hopitalizations: No Immunizations Up To Date Tetanus Booster (TDap): Unknown Seasonal Allergies Seasonal Allergies: Yes Past Medical History Surgeries: Yes (CS X5, UMBILICAL HERNIA, KNEE SURGERY, EYE SURGERY) Section, Gallbladder, Hysterectomy Respiratory: No Cardiac: Yes Hypertension Neurological: No Reproductive Disorders: No Female Reproductive Disorders: 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 Sexually Transmitted Disease: No HIV/AIDS: No Genitourinary: No Gastrointestinal: Yes (ABD PAIN) Chronic Constipation, Gall Bladder Disease Musculoskeletal: Yes (RELATED TO GALLBLADDER) Chronic Back Pain Endocrine: No HEENT: Yes (GLASSES) Loss of Vision: Denies Hearing Impairment: Denies Cancer: No Psychosocial: Yes Anxiety, Depression Integumentary: No Blood Disorders: Yes (AFTER C-SECTIONS ) Adverse Reaction/Blood Tranf: No (HAS HAD BLOOD WITH NO REACTION) Family Medical History No Pertinent Family Hx Physical Exam Vital Signs Vital Signs - First Documented 09/02/20 08:42 Temp 37.0 Pulse 89 Resp 16 B/P (MAP) 150/94 (112) Pulse Ox 99 O2 Delivery Room Air Capillary Refill : Less Than 3 Seconds Height, Weight, BMI Height: 5'3.00" Weight: 228lbs. oz. 103.977004nc; 41.00 BMI Method:Stated General Appearance: No Apparent Distress, WD/WN, Obese HEENT: PERRL/EOMI, Normal ENT Inspection Neck: Normal Inspection Respiratory: Chest Non Tender, Lungs Clear, Normal Breath Sounds, No Accessory Muscle Use, No Respiratory Distress Cardiovascular: Regular Rate, Rhythm, No Edema, No Murmur, Normal Peripheral Pulses Gastrointestinal: Normal Bowel Sounds, Non Tender, Soft Extremity: Normal Inspection, Non Tender, No Calf Tenderness, No Pedal Edema Neurologic/Psychiatric: Alert, Oriented x3, No Motor/Sensory Deficits, Normal Mood/Affect, tank tender II-XII Norm as Tested Skin: Normal Color, Warm/Dry Progress/Results/Core Measures Results/Orders Lab Results Laboratory Tests Test 09/02/20 08:08 09/02/20 09:00 Range/Units D-Dimer 0.53 H 0.00-0.49 UG/ML Troponin I < 0.028 <0.028 NG/ML C-Reactive Protein High Sensitivity 0.34 0.00-0.50 MG/DL White Blood Count 5.4 4.3-11.0 10^3/uL Red Blood Count 4.58 3.80-5.11 10^6/uL Hemoglobin 13.8 11.5-16.0 g/dL Hematocrit 42 35-52 % Mean Corpuscular Volume 91 80-99 fL Mean Corpuscular Hemoglobin 30 25-34 pg Mean Corpuscular Hemoglobin Concent 33 32-36 g/dL Red Cell Distribution Width 13.0 10.0-14.5 % Platelet Count 258 130-400 10^3/uL Mean Platelet Volume 10.2 9.0-12.2 fL Immature Granulocyte % (Auto) 0 % Neutrophils (%) (Auto) 57 42-75 % Lymphocytes (%) (Auto) 31 12-44 % Monocytes (%) (Auto) 10 0-12 % Eosinophils (%) (Auto) 1 0-10 % Basophils (%) (Auto) 1 0-10 % Neutrophils # (Auto) 3.0 1.8-7.8 10^3/uL Lymphocytes # (Auto) 1.7 1.0-4.0 10^3/uL Monocytes # (Auto) 0.5 0.0-1.0 10^3/uL Eosinophils # (Auto) 0.1 0.0-0.3 10^3/uL Basophils # (Auto) 0.1 0.0-0.1 10^3/uL Immature Granulocyte # (Auto) 0.0 0.0-0.1 10^3/uL Prothrombin Time 13.0 12.2-14.7 SEC INR Comment 0.9 0.8-1.4 Activated Partial Thromboplast Time 28 24-35 SEC Sodium Level 139 135-145 MMOL/L Potassium Level 4.1 3.6-5.0 MMOL/L Chloride Level 109 H 98-107 MMOL/L Carbon Dioxide Level 23 21-32 MMOL/L Anion Gap 7 5-14 MMOL/L Blood Urea Nitrogen 12 7-18 MG/DL Creatinine 0.92 0.60-1.30 MG/DL Estimat Glomerular Filtration Rate > 60 BUN/Creatinine Ratio 13 Glucose Level 100 70-105 MG/DL Calcium Level 8.8 8.5-10.1 MG/DL Corrected Calcium 8.8 8.5-10.1 MG/DL Magnesium Level 1.9 1.6-2.4 MG/DL Total Bilirubin 0.9 0.1-1.0 MG/DL Aspartate Amino Transf (AST/SGOT) 24 5-34 U/L Alanine Aminotransferase (ALT/SGPT) 33 0-55 U/L Alkaline Phosphatase 85 40-136 U/L Myoglobin 70.1 10.0-92.0 NG/ML Total Protein 8.0 6.4-8.2 GM/DL Albumin 4.0 3.2-4.5 GM/DL My Orders Orders - SOPHIA MARIE MD Cbc With Automated Diff (09/02/20 08:45) Magnesium (09/02/20 08:45) Chest 1 View, Ap/Pa Only (09/02/20 08:45) Ekg Tracing (09/02/20 08:45) Comprehensive Metabolic Panel (09/02/20 08:45) Myoglobin Serum (09/02/20 08:45) Protime With Inr (09/02/20 08:45) Partial Thromboplastin Time (09/02/20 08:45) O2 (09/02/20 08:45) Monitor-Rhythm Ecg Trace Only (09/02/20 08:45) Ed Iv/Invasive Line Start (09/02/20 08:45) Troponin I (09/02/20 08:45) Hs C Reactive Protein (09/02/20 09:01) Fibrin Degradation Products (09/02/20 09:01) Ketorolac Injection (Toradol Injection) (09/02/20 09:15) Aspirin Chewable Tablet (Baby Aspirin Ch (09/02/20 09:15) Ct Angio Chest W (09/02/20 10:30) Iohexol Injection (Omnipaque 350 Mg/Ml 1 (09/02/20 10:45) Received Contrast (Hold Metformin- Contr (09/02/20 10:45) Sodium Chloride Flush (Catheter Flush Sy (09/02/20 10:45) Ns (Ivpb) (Sodium Chloride 0.9% Ivpb Bag (09/02/20 10:45) Medications Given in ED Current Medications Medications Dose Ordered Sig/Gregg Route Start Time Stop Time Status Last Admin Dose Admin Aspirin 324 mg ONCE ONCE PO 09/02/20 09:15 09/02/20 09:16 DC 09/02/20 09:34 324 MG Iohexol 75 ml ONCE ONCE IV 09/02/20 10:45 09/02/20 10:46 DC 09/02/20 10:43 85 ML Ketorolac Tromethamine 15 mg ONCE ONCE IVP 09/02/20 09:15 09/02/20 09:16 DC 09/02/20 09:34 15 MG Sodium Chloride 100 ml ONCE ONCE IV 09/02/20 10:45 09/02/20 10:46 DC 09/02/20 10:43 80 ML Vital Signs/I&O 09/02/20 09/02/20 08:42 11:37 Temp 37.0 Pulse 89 90 Resp 16 16 B/P (MAP) 150/94 (112) 156/92 Pulse Ox 99 97 O2 Delivery Room Air Room Air Blood Pressure Mean: 112 Progress Progress Note : Progress Note Patient received Toradol and aspirin with some improvement in her pain. Initial work-up was unremarkable, But there was a minimally elevated D-dimer. I discussed risks and benefits of obtaining CT angiogram with the patient including risk of cancer due to radiation exposure. Patient acknowledged the risks but asserted she would like to proceed with the CT scan. CT was obtained and demonstrated no acute abnormalities. We also discussed patient's hypertension here. This seems to be isolated to this visit as she has not had significant hypertension on other recent healthcare encounters. She was encouraged to follow this with her primary care provider. Initial ECG Impression Date: Sep 02, 2020 Initial ECG Impression Time: 08:49 Initial ECG Rate: 88 Initial ECG Rhythm: Normal Sinus Initial ECG Intervals: Normal Initial ECG Impression: Normal Comment Normal sinus rhythm with no ST elevation or depression. No abnormal intervals. LVH. Diagnostic Imaging Diagonstic Imaging: Xray Plain Films/CT/US/NM/MRI: chest Comments NAME: HEATHER ALLEN [facility] REC#: [id number] PT STATUS: REG ER : 1975 PHYSICIAN: SOPHIA MARIE MD ADMIT DATE: 09/02/20/ER Signed Date of Exam:09/02/20 CHEST 1 VIEW, AP/PA ONLY Indication: Chest pain x2 weeks Portable chest 9:08 AM Heart size and pulmonary vascularity are normal. Lungs are clear. There are no effusions or pneumothoraces. IMPRESSION: Negative chest Dictated by: Dictated on workstation # [id number] Dict: 09/02/20917 Trans: 09/02/20917 [id number] Interpreted by: DG SIMS MD Electronically signed by: DG SIMS MD 09/02/20 0918 Reviewed: Reviewed by Me Diagonstic Imaging: CT Plain Films/CT/US/NM/MRI: chest Comments NAME: HEATHER ALLEN [facility] REC#: [id number] PT STATUS: REG ER : 1975 PHYSICIAN: SOPHIA MARIE MD ADMIT DATE: 09/02/20/ER Signed Date of Exam:09/02/20 CT ANGIO CHEST W PROCEDURE: CT angiography of the chest with contrast. TECHNIQUE: Multiple contiguous axial images were obtained through the chest after uneventful bolus administration of intravenous contrast. 3D reconstructed CTA MIP acquisitions were also performed. Auto Exposure Controls were utilized during the CT exam to meet ALARA standards for radiation dose reduction. INDICATION: Chest and back pain Lungs are clear. There are no effusions or pneumothoraces. There is no right ventricular strain. The aorta appears normal. There are no pulmonary emboli seen. IMPRESSION: Negative CTA chest. Dictated by: Dictated on workstation # [id number] Dict: 09/02/20 1102 Trans: 09/02/20 1106 [facility] [id number] Interpreted by: DG SIMS MD Electronically signed by: DG SIMS MD 09/02/20 1106 Reviewed: Reviewed by Me Departure Impression Primary Impression: Pleuritic chest pain Additional Impression: Episode of hypertension Disposition: HOME, SELF-CARE Condition: Improved Departure-Patient Inst. Decision time for Depature: 11:29 Referrals: [facility] (PCP/Family) Primary Care Physician Patient Instructions: Chest Pain That Is Not Caused by the Heart (DC) Add. Discharge Instructions: Try taking NSAID medication such as ibuprofen 600 mg every 6 hours or naproxen (Aleve) 500 mg twice daily consistently for the next couple of days. Take NSAIDs with food or milk to buffer your stomach. You may also take with an antacid medication such as Tums or Pepcid (famotidine) to help prevent stomach irritation. If you are not improving after a couple of days, start the prednisone as prescribed. Also take prednisone with food or milk to avoid upset stomach. If you have not improved in 1 to 2 weeks, please see your primary care provider. Have your blood pressure checked in follow-up and discuss whether treatment for your blood pressure should be restarted. Call with questions or concerns. Return to the emergency room if you have worsening symptoms. All discharge instructions reviewed with patient and/or family. Voiced understanding. Scripts Prednisone (Prednisone) 20 Mg Tab 40 MG PO DAILY, #8 TAB 0 Refills Prov: SOPHIA MARIE MD 09/02/20 Copy Copies To 2: OTONIEL THAKUR JOSHUA T MD Sep 02, 2020 11:32
[2020-09-02 11:37] VITALS: BP 156/92
== END 2020-09-02 11:37 | disposition home or self-care (01) ==
LOC: EDUNIT# 08:42 → ER 08:44
DX: R07.81 Pleurodynia (principal); I10 Essential (primary) hypertension; E66.9 Obesity, unspecified; G89.29 Other chronic pain; M54.9 Dorsalgia, unspecified; Z68.41 Body mass index [BMI] 40.0-44.9, adult; Z20.828 Contact with and (suspected) exposure to other viral communicable diseases; Z79.52 Long term (current) use of systemic steroids; Z79.891 Long term (current) use of opiate analgesic
CPT/HCPCS: 36415; 71045; 71275; 80053; 83735; 83874; 84484; 85025; 85379; 85610; 85730; 86141; 93005; 93041

== ENCOUNTER 2020-10-15 11:10 | Emergency (ER) | payer MEDICAID ==
[~2020-10-15] VITALS: Ht 160 cm; Wt 100.2 kg
[~2020-10-15 11:10] MED LIST changes: -CATHETER FLUSH 10 ML SYR IV PRN; -HOLD METFORMIN - RECEIVED CONTRAST 20 ML VIAL IV SCH; -IOHEXOL 350 MG/ML 100 ML (OMNIPAQUE 350) VIAL IV ONE; -NS 100 ML (IVPB) BAG IV ONE
[2020-10-15] MEDS ORDERED: HYDROcodone/APAP 5 MG/325 MG (LORTAB) TAB PO ONE (12:15)
[2020-10-15] MEDS ORDERED: ACHD5005 PO (12:16)
--- NOTE | 2020-10-15 12:16 | ED Upper Extremity ---
General Chief Complaint: Upper Extremity Stated Complaint: L ARM SWOLLEN Nursing Triage Note: PT PRESENTS TO ED VIA POV WITH COMPLAINTS OF L ARM SWELLING AFTER HAVING CONTRAST CT DONE THIS AM. Nursing Sepsis Screen: No Definite Risk Source: patient Exam Limitations: no limitations History of Present Illness Date Seen by Provider: Oct 15, 2020 Time Seen by Provider: 12:11 Initial Comments To ER with reports of pain and swelling into the antecubital fossa of the left arm after receiving an IV contrast bolus for CT scan. This occurred just prior to arrival in the CT department. Onset: just prior to arrival Severity: moderate Pain/Injury Location: left elbow Method of Injury: fell Modifying Factors: Worse With Movement Allergies and Home Medications Allergies Coded Allergies: No Known Drug Allergies (Unverified , 08/28/19) Home Medications Chlorthalidone 25 Mg Tablet, 25 MG PO DAILY, (Reported) Docusate Sodium 100 Mg Capsule, 100 MG PO BID Prescribed by: MARLON NAVARRO on 08/30/19 1137 Hydrocodone Bit/Acetaminophen 1 Tab Tab, 1-2 TAB PO Q6H PRN for PAIN-MODERATE Prescribed by: MARLON NAVARRO on 08/30/19 1137 Prednisone 20 Mg Tab, 40 MG PO DAILY Prescribed by: SOPHIA HARRIS on 09/02/20 1131 Patient Home Medication List Home Medication List Reviewed: Yes Review of Systems Constitutional: see HPI EENTM: see HPI Respiratory: no symptoms reported Cardiovascular: no symptoms reported Genitourinary: no symptoms reported Musculoskeletal: see HPI Skin: no symptoms reported Psychiatric/Neurological: No Symptoms Reported Past Vixjqwy-Uvgrzy-Axqlqi Hx Patient Social History Alcohol Use: Occasionally Uses Smoking Status: Never a Smoker 2nd Hand Smoke Exposure: No Recent Infectious Disease Expo: No Recent Hopitalizations: No Immunizations Up To Date Tetanus Booster (TDap): Unknown Seasonal Allergies Seasonal Allergies: Yes Past Medical History Surgeries: Yes (CS X5, UMBILICAL HERNIA, KNEE SURGERY, EYE SURGERY) Section, Gallbladder, Hysterectomy Respiratory: No Asthma Cardiac: Yes Hypertension Neurological: No Reproductive Disorders: No Female 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 Sexually Transmitted Disease: No HIV/AIDS: No Genitourinary: No Gastrointestinal: Yes (ABD PAIN) Chronic Constipation, Gall Bladder Disease Musculoskeletal: Yes (RELATED TO GALLBLADDER) Chronic Back Pain Endocrine: No HEENT: Yes (GLASSES) Loss of Vision: Denies Hearing Impairment: Denies Cancer: No Psychosocial: Yes Anxiety, Depression Integumentary: No Blood Disorders: Yes (AFTER C-SECTIONS ) Adverse Reaction/Blood Tranf: No (HAS HAD BLOOD WITH NO REACTION) Family Medical History No Pertinent Family Hx Physical Exam Vital Signs Vital Signs - First Documented 10/15/20 11:44 Temp 36.9 Pulse 100 Resp 18 B/P (MAP) 149/89 (109) Pulse Ox 99 Capillary Refill : Less Than 3 Seconds Height, Weight, BMI Height: 5'3.00" Weight: 228lbs. oz. 103.641884ly; 39.00 BMI Method:Stated General Appearance: WD/WN, no apparent distress HEENT: PERRL/EOMI, normal ENT inspection Neck: non-tender, full range of motion Shoulder: normal inspection, non-tender Elbow/Forearm: Right, swelling (There is swelling just superior to the antecubital fossa on the left arm. A little blanching of the skin. This is confined to the anterior surface and not circumferential. She can fully flex the arm.) Wrist: Yes normal inspection, Yes non-tender Hand: normal inspection, non-tender Neurologic/Psychiatric: alert, normal mood/affect, oriented x 3 Skin: normal color, warm/dry Progress/Results/Core Measures Results/Orders My Orders Orders - ALMA ACOSTA APRN Hydrocodone/Apap 5/325 Tablet (Lortab 5 (10/15/20 12:15) Vital Signs/I&O 10/15/20 11:44 Temp 36.9 Pulse 100 Resp 18 B/P (MAP) 149/89 (109) Pulse Ox 99 Blood Pressure Mean: 109 Departure Impression Primary Impression: Contrast extravasation Disposition: 01 HOME, SELF-CARE Condition: Stable Departure-Patient Inst. Decision time for Depature: 12:15 Referrals: [facility] (PCP/Family) Primary Care Physician Patient Instructions: NO INSTRUCTIONS GIVEN Add. Discharge Instructions: 1. Keep the ice pack on this area for 30 minutes every 1-2 hours for the rest of today. Pain medication as directed. Keep the arm elevated as much as possible. Expect this to reabsorb over the next 1 to 2 days. Return to ER for any worsening. All discharge instructions reviewed with patient and/or family. Voiced understanding. Scripts Hydrocodone/Acetaminophen (Hydrocodone-Acetamin 5-325 mg) 1 Each Tablet 1 TAB PO Q4H PRN for PAIN-MODERATE (5-7), #5 TAB Prov: ALMA ACOSTA APRN 10/15/20 ALMA ACOSTA APRN Oct 15, 2020 12:16
[2020-10-15 12:24] VITALS: BP 132/70
== END 2020-10-15 12:24 | disposition home or self-care (01) ==
LOC: EDUNIT# 11:10 → ER 11:11
DX: T80.89XA Other complications following infusion, transfusion and therapeutic injection, initial encounter (principal); J45.909 Unspecified asthma, uncomplicated; I10 Essential (primary) hypertension; G89.29 Other chronic pain; M54.9 Dorsalgia, unspecified; Z79.891 Long term (current) use of opiate analgesic; Z79.52 Long term (current) use of systemic steroids
CPT/HCPCS: 99283; A4565

== ENCOUNTER → 2020-10-15 | Outpatient (CLI) | payer MEDICAID ==
[~2020-10-15] MED LIST changes: +CATHETER FLUSH 10 ML SYR IV PRN; +HOLD METFORMIN - RECEIVED CONTRAST 20 ML VIAL IV SCH; +IOHEXOL 350 MG/ML 100 ML (OMNIPAQUE 350) VIAL IV ONE; +NS 100 ML (IVPB) BAG IV ONE; +PRD20T PO
--- NOTE | 2020-10-15 09:19 | Diagnostic Imaging Report ---
PROCEDURE: CT neck soft tissue with contrast. TECHNIQUE: Multiple contiguous axial images were obtained through the neck after the administration of contrast. Auto Exposure Controls were utilized during the CT exam to meet ALARA standards for radiation dose reduction. INDICATION: Sore throat. Earache. Left-sided throat pain. COMPARISON: None. FINDINGS: The posterior nasopharynx and oropharynx demonstrate appropriate symmetry. There is no displacement of the parapharyngeal fat planes. There is no abnormal process evident within the prevertebral or retropharyngeal space. There is no evidence of abnormal thickening of the epiglottis or aryepiglottic folds. The vocal folds appear symmetric. The parotid, submandibular, and thyroid gland are unremarkable. No pathologically enlarged cervical lymph nodes are evident. No focal inflammatory changes are demonstrated. No soft tissue mass or fluid collection demonstrated. The vascular structures the neck demonstrate no evidence of high-grade stenosis on this nondedicated exam. The visualized lung apices are clear. The visualized intracranial contents demonstrate no evidence of pathologic intracranial enhancement or intracranial mass effect. Visualized orbital contents are unremarkable. The visualized paranasal sinuses are clear. The mastoids and middle ears are clear. No acute osseous abnormality in the cervical spine. IMPRESSION: 1. Appropriate symmetry of the aerodigestive tract. 2. No evidence of pathologic adenopathy. 3. No soft tissue mass, fluid collection, or focal inflammatory changes demonstrated. Dictated by: Dictated on workstation # [id number]
== END ==
LOC: RAD 08:15
PROVIDERS: ATTEND Otolaryngology Otolaryngology/Facial Plastic Surgery
DX: H92.02 Otalgia, left ear (principal); R07.0 Pain in throat
CPT/HCPCS: 70491

== ENCOUNTER → 2020-10-22 | Outpatient (CLI) | payer MEDICAID | LOC: CARD 11:30 | PROVIDERS: ATTEND Internal Medicine Cardiovascular Disease | DX: J45.909 Unspecified asthma, uncomplicated (principal); I11.9 Hypertensive heart disease without heart failure | CPT/HCPCS: 93306 ==

== ENCOUNTER 2020-10-29 05:28 | Outpatient (RCR) | payer MEDICAID ==
[~2020-10-29] VITALS: Ht 160 cm; Wt 100.5 kg
[~2020-10-29 05:28] MED LIST changes: +FLUT1DIS26 IH; +LEVO5TAB28 PO; +MULT-1044 PO; +OMEP20CA18 PO; +RT-ALBUINH IH; +VITA-252 PO
== END 2020-10-29 09:23 | disposition home or self-care (01) ==
LOC: PREOP 05:28
PROVIDERS: ATTEND Otolaryngology Otolaryngology/Facial Plastic Surgery
DX: Z01.812 Encounter for preprocedural laboratory examination (principal); J35.1 Hypertrophy of tonsils; Z20.822 Contact with and (suspected) exposure to COVID-19
CPT/HCPCS: 87635

== ENCOUNTER 2020-10-31 07:37 | Day surgery (SDC) | payer MEDICAID ==
[~2020-10-31] VITALS: Ht 160 cm; Wt 100.5 kg
[2020-10-31] VITALS (11 sets, daily range): BP systolic 106–140; BP diastolic 71–89
[2020-10-31] MEDS ORDERED: fentaNYL INJ 100 MCG/2 ML AMP ONE (08:14)
[2020-10-31] MEDS ORDERED: proPOfol 200 MG/20 ML (DIPRIVAN) VIAL IV ONE ×2 (08:17→08:19)
[2020-10-31] MEDS ORDERED: ROCURONIUM 10 MG/ML 5 ML SYRINGE IV ONE (08:19)
[2020-10-31] MEDS ORDERED: MIDAZOLAM 2 MG/2 ML (VERSED) VIAL ONE (08:19)
[2020-10-31] MEDS ORDERED: ONDANSETRON 4 MG/2 ML (SDV) Z0FRAN ONE (08:19)
[2020-10-31] MEDS ORDERED: SEVOFLURANE (ULTANE) 15 ML INHAL SOLN ONE (08:19)
[2020-10-31] MEDS ORDERED: LACTATED RINGERS 1,000 ML IV PRN (08:30)
[2020-10-31 08:34] LABS: BASOPHILS # (AUTO) 0.1 10^3/uL (0.0-0.1); BASOPHILS % (AUTO) 1 % (0-10); EOSINOPHILS # (AUTO) 0.1 10^3/uL (0.0-0.3); EOSINOPHILS % (AUTO) 1 % (0-10); HEMATOCRIT 43 % (35-52); HEMOGLOBIN 14.2 g/dL (11.5-16.0); LYMPHOCYTES # (AUTO) 2.6 10^3/uL (1.0-4.0); LYMPHOCYTES % (AUTO) 34 % (12-44); MEAN CORPUSCULAR HEMOGLOBIN 30 pg (25-34); MEAN CORPUSCULAR HGB CONC 33 g/dL (32-36); MEAN CORPUSCULAR VOLUME 89 fL (80-99); MEAN PLATELET VOLUME 9.9 fL (9.0-12.2); MONOCYTES # (AUTO) 0.9 10^3/uL (0.0-1.0); MONOCYTES % (AUTO) 12 % (0-12); NEUTROPHILS % (AUTO) 52 % (42-75); PLATELET COUNT 293 10^3/uL (130-400); WHITE BLOOD COUNT 7.6 10^3/uL (4.3-11.0)
[2020-10-31 08:45] LABS: BUN/CREATININE RATIO 12; CALCIUM 8.8 MG/DL (8.5-10.1); CARBON DIOXIDE 24 MMOL/L (21-32); CHLORIDE 103 MMOL/L (98-107); CREATININE SERUM 0.99 MG/DL (0.60-1.30); GFR ESTIMATED > 60; GLUCOSE 104 MG/DL (70-105); POTASSIUM 3.1 MMOL/L (3.6-5.0); SODIUM 139 MMOL/L (135-145)
--- NOTE | 2020-10-31 09:14 | Progress Note-Pre Operative ---
Pre-Operative Progress Note H&P Reviewed The H&P was reviewed, patient examined and no changes noted. Date Seen by Provider: Oct 31, 2020 Time Seen by Provider: 09:00 Date H&P Reviewed: Oct 31, 2020 Time H&P Reviewed: 09:00 Pre-Operative Diagnosis: Chronic Tons/ Chronic Left sore throat EMMETT TREVINO MD Oct 31, 2020 09:14
[2020-10-31] MEDS ORDERED: ESMOLOL 100 MG/10 ML (BREVIBLOC) VIAL ONE (09:38)
[2020-10-31] MEDS ORDERED: MEPERIDINE (DEMEROL) INJ 50 MG/ML IVP ONE (09:45)
[2020-10-31] MEDS ORDERED: morphine INJ 10 MG/ML 1ML (SYR OR VIAL) IVP ONE (09:45)
[2020-10-31] MEDS ORDERED: ONDANSETRON 4 MG/2 ML (SDV) Z0FRAN IVP PRN (09:45)
[2020-10-31] MEDS ORDERED: fentaNYL INJ 100 MCG/2 ML AMP IVP ONE (09:45)
--- NOTE | 2020-10-31 09:46 | Progress Note-Post Operative ---
Post-Operative Progess Note Surgeon (s)/Reed Man (s) Surgeon EMMETT TREVINO MD Reed Man n/a Pre-Operative Diagnosis Chronic Tons/ Chronic Left sore throat Post-Operative Diagnosis same Post-Op Procedure Note Date of Procedure: Oct 31, 2020 Name of Procedure Performed: Tonsillectomy Description & Findings Description and Findings: n/a Anesthesia Type get Estimated Blood Loss minimal Packing none. Specimen(s) collected/removed tonsils sent seprately to pathology EMMETT TREVINO MD Oct 31, 2020 09:46
[2020-10-31] MEDS ORDERED: NS IV 1000 ML 1,000 ML IV SCH (10:00)
[2020-10-31] MEDS ORDERED: HYDROcodone/APAP 7.5MG-325 MG/15 ML (LORTAB) UDC PO PRN (10:00)
[2020-10-31] MEDS ORDERED: APAP 325 MG/10.15 ML LIQ (TYLENOL) UDC PO PRN (10:00)
[2020-10-31] MEDS ORDERED: AMOX250S5 PO (11:32)
[2020-10-31] MEDS ORDERED: HYDR15SO8 PO (11:32)
[2020-10-31] MEDS ORDERED: DEXAINTSOL PO (11:32)
[2020-10-31] MEDS ORDERED: TETRACAINESUCKERS MT (11:35)
--- NOTE | 2020-10-31 13:58 | Anesthesia-General Post-Op ---
General Patient Condition Mental Status/LOC: Same as Preop Cardiovascular: Satisfactory Nausea/Vomiting: Absent Respiratory: Satisfactory Pain: Controlled Complications: Absent Post Op Complications Complications None Follow Up Care/Instructions Patient Instructions None needed. Anesthesia/Patient Condition Patient Condition Patient is doing well, no complaints, stable vital signs, no apparent adverse anesthesia problems. No complications reported per nursing. SCOT BALLARD CRNA Oct 31, 2020 13:58
== END 2020-10-31 13:00 | disposition home or self-care (01) ==
LOC: SDC 07:37
PROVIDERS: ATTEND Otolaryngology Otolaryngology/Facial Plastic Surgery
DX: J35.01 Chronic tonsillitis (principal)
CPT/HCPCS: 36415; 36430; 80048; 85025; 87081; 88304

== ENCOUNTER 2020-11-06 00:34 | Emergency (ER) | payer MEDICAID, OTHER ==
[~2020-11-06] VITALS: Ht 160 cm; Wt 100.0 kg
[~2020-11-06 00:34] MED LIST changes: +AMOX250S5 PO; +DEXAINTSOL PO; +HYDR15SO8 PO; +TETRACAINESUCKERS MT
--- NOTE | 2020-11-06 00:53 | ED General ---
General Stated Complaint: SOB,1ST COVID SHOT ON TUESDAY Source of Information: Patient History of Present Illness Date Seen by Provider: Nov 06, 2020 Time Seen by Provider: 00:44 Initial Comments PT ARRIVES VIA POV FROM HOME C/O SHORTNESS OF BREATH--BEGAN TONIGHT WHEN SHE WAS TRYING TO GO TO SLEEP--HAD CPAP ON AT THE TIME. DENIES THAT HER SYMPTOMS ARE DUE TO CPAP MACHINE THEN LATER STATES SHE NEVER FEEL SHORT OF BREATH STATES SHE JUST FEELS WEAK AND SHE'S HUNGRY AND SHE "CAN'T EAT OR DRINK" DUE TO THROAT PAIN PT HAD TONSILLECTOMY 10/31/[address] TREVINO PT TOOK DOSE OF LIQUID HYDROCODONE 20-30 MINUTES PRIOR TO ARRIVAL STATES SHE IS ON AMOXIL SINCE SURGERY NO CHEST PAIN NO FEVER NO COUGH NO NAUSEA/VOMITING/DIARRHEA NO HEADACHE NO BODY ACHES STATES "I FEEL DEHYDRATED--I NEED SOME FLUIDS" DOES HAVE HISTORY OF ASTHMA. BUT HAS NOT USED INHALERS OR NEBULIZER TONIGHT OR RECENTLY PT RECEIVED HER FIRST COVID-19 VACCINATION ON Tuesday11/05/20 PCP: JONNY Allergies and Home Medications Allergies Coded Allergies: No Known Drug Allergies (Unverified , 08/28/19) Home Medications Albuterol Sulfate 1 Puff Puff, 2 PUFF IH Q4H PRN for WHEEZING, (Reported) 1 PUFF = 90 MCG Amoxicillin 250 Mg/5 Ml Susp, 2 TSP PO BID Prescribed by: KAJAL VENTURA on 10/31/20 1132 Chlorthalidone 25 Mg Tablet, 25 MG PO DAILY, (Reported) Dexamethasone 1 Mg/1 Ml Linda, 2 TSP PO DAILY Mix 4MG/2.5CC water Prescribed by: KAJAL VENTURA on 10/31/20 1132 Fluticasone/Salmeterol Unknown Strength Blst.w.dev, 1 PUFF IH BID, (Reported) Hydrocodone/Acetaminophen 15 Ml Solution, 2-3 TSP PO Q4H PRN for PAIN-MODERATE (5-7) 8 OZ BOTTLE Prescribed by: KAJAL VENTURA on 10/31/20 1132 Multivit-Min/Folic Acid/Biotin 1 Each Tab.chew, 1 EACH PO DAILY, (Reported) Omeprazole 20 Mg Capsule.dr, 20 MG PO DAILY, (Reported) Tetracaine Sucker Ea, 0.5-16 EA MT UD PRN for PAIN-MODERATE (5-7) Tetracain Suckers These suckers are custom made and require a prescription. Moisten the sucker first and then suck on it gently as far back in the mouth as possible for 2-3 days. You can repeadt it in about an hour. This will take the edge off but not completely numb the throat. Prescribed by: ANTONY KEIM on 10/31/20 1135 Vitamin C/Biotin 1 Each Tab.chew, 1 EACH PO DAILY, (Reported) Patient Home Medication List Home Medication List Reviewed: Yes Review of Systems Review of Systems Constitutional: no symptoms reported; No fever EENTM: see HPI, throat pain Respiratory: see HPI; No cough Cardiovascular: no symptoms reported; No chest pain, No palpitations, No syncope Gastrointestinal: no symptoms reported Genitourinary: no symptoms reported Musculoskeletal: no symptoms reported Skin: no symptoms reported Psychiatric/Neurological: No Symptoms Reported Hematologic/Lymphatic: No Symptoms Reported Immunological/Allergic: no symptoms reported Past Hetzsvh-Ubulad-Bxuhlz Hx Past Med/Social Hx: Reviewed and Corrections made Patient Social History 2nd Hand Smoke Exposure: No Recent Hopitalizations: No Immunizations Up To Date Tetanus Booster (TDap): Unknown Seasonal Allergies Seasonal Allergies: Yes Past Medical History Surgeries: Yes (CS X5;UMBILICAL HERNIA;KNEE SX; EYE SX X2;LAVH/LIDIA/RSO) Abdominal, Section, Eye Surgery, Gallbladder, Hysterectomy, Oophorectomy, Orthopedic, Tonsillectomy Respiratory: Yes Asthma, Sleep Apnea Currently Using CPAP: No Currently Using BIPAP: No Cardiac: Yes Hypertension Neurological: No Reproductive Disorders: Yes Female Reproductive Disorders: Menstrual Problems 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 Sexually Transmitted Disease: No HIV/AIDS: No Genitourinary: No Gastrointestinal: Yes Gastroesophageal Reflux, Chronic Constipation Musculoskeletal: Yes Chronic Back Pain Endocrine: No HEENT: Yes (GLASSES, TONSILLAR HYPERTROPHY; EYE SURGERY X 2; TONSILLECTOMY) Loss of Vision: Denies Hearing Impairment: Denies Cancer: No Psychosocial: Yes Anxiety, Depression Integumentary: No Blood Disorders: Yes (AFTER C-SECTIONS ) Adverse Reaction/Blood Tranf: No (HAS HAD BLOOD WITH NO REACTION) Family Medical History No Pertinent Family Hx PAST SURGICAL HISTORY: - X 5 -KNEE SURGERY -EYE SURGERY X 2 -CHOLECYSTECOMTY 08/2019 -LAVH/LYSIS OF ADHESIONS/RIGHT SALPINGO-OOPHORECTOMY 04/2013 -TONSILLECTOMY 10/31/[address] TREVINO Physical Exam Vital Signs Vital Signs - First Documented 11/06/20 11/06/20 00:44 01:33 Temp 36.1 Pulse 90 Resp 20 B/P (MAP) 102/76 (85) Pulse Ox 98 O2 Delivery Room Air O2 Flow Rate 2.00 Capillary Refill : Height, Weight, BMI Height: 5'3.00" Weight: 228lbs. oz. 103.683023ye; 39.25 BMI Method:Stated General Appearance: No Apparent Distress, WD/WN HEENT: PERRL/EOMI, TMs Normal, Other (ORAL MUCOSA MOIST. TONSILLAR BED AND UVULA WITH NORMAL POST OP APPEARANCE. NO EVIDENCE OF INFECTION OR BLEEDING. ) Neck: Normal Inspection Respiratory: Normal Breath Sounds, No Accessory Muscle Use, No Respiratory Distress Cardiovascular: Regular Rate, Rhythm, No Edema, No JVD, No Murmur Gastrointestinal: Non Tender, Soft Extremity: Normal Inspection, No Pedal Edema Neurologic/Psychiatric: Alert, Oriented x3, No Motor/Sensory Deficits, Normal Mood/Affect, retort unloader II-XII Norm as Tested Skin: Normal Color (PT IS BLACK), Warm/Dry Focused Exam Lactate Level 11/06/20 01:11: Lactic Acid Level 1.86 Lactic Acid Level Laboratory Tests Test 11/06/20 01:11 Lactic Acid Level 1.86 MMOL/L (0.50-2.00) Progress/Results/Core Measures Suspected Sepsis SIRS Temperature: Pulse: Respiratory Rate: Laboratory Tests 11/06/20 01:11: White Blood Count 12.2H Blood Pressure / Mean: 11/06/20 01:11: Lactic Acid Level 1.86 Laboratory Tests 11/06/20 01:11: Creatinine 1.05, INR Comment 1.0, Platelet Count 325, Total Bilirubin 0.9 Results/Orders Lab Results Laboratory Tests Test 11/06/20 01:04 11/06/20 01:11 Range/Units Coronavirus 2019 ([facility]) Negative Negative White Blood Count 12.2 H 4.3-11.0 10^3/uL Red Blood Count 5.14 H 3.80-5.11 10^6/uL Hemoglobin 15.1 11.5-16.0 g/dL Hematocrit 45 35-52 % Mean Corpuscular Volume 88 80-99 fL Mean Corpuscular Hemoglobin 29 25-34 pg Mean Corpuscular Hemoglobin Concent 33 32-36 g/dL Red Cell Distribution Width 12.1 10.0-14.5 % Platelet Count 325 130-400 10^3/uL Mean Platelet Volume 9.6 9.0-12.2 fL Immature Granulocyte % (Auto) 1 % Neutrophils (%) (Auto) 52 42-75 % Lymphocytes (%) (Auto) 38 12-44 % Monocytes (%) (Auto) 9 0-12 % Eosinophils (%) (Auto) 0 0-10 % Basophils (%) (Auto) 0 0-10 % Neutrophils # (Auto) 6.3 1.8-7.8 10^3/uL Lymphocytes # (Auto) 4.6 H 1.0-4.0 10^3/uL Monocytes # (Auto) 1.1 H 0.0-1.0 10^3/uL Eosinophils # (Auto) 0.0 0.0-0.3 10^3/uL Basophils # (Auto) 0.0 0.0-0.1 10^3/uL Immature Granulocyte # (Auto) 0.1 0.0-0.1 10^3/uL Erythrocyte Sedimentation Rate 24 H 0-20 MM/HR Prothrombin Time 13.6 12.2-14.7 SEC INR Comment 1.0 0.8-1.4 Activated Partial Thromboplast Time 22 L 24-35 SEC D-Dimer 0.33 0.00-0.49 UG/ML Sodium Level 136 135-145 MMOL/L Potassium Level 2.6 L 3.6-5.0 MMOL/L Chloride Level 95 L 98-107 MMOL/L Carbon Dioxide Level 27 21-32 MMOL/L Anion Gap 14 5-14 MMOL/L Blood Urea Nitrogen 15 7-18 MG/DL Creatinine 1.05 0.60-1.30 MG/DL Estimat Glomerular Filtration Rate > 60 BUN/Creatinine Ratio 14 Glucose Level 117 H 70-105 MG/DL Lactic Acid Level 1.86 0.50-2.00 MMOL/L Calcium Level 9.1 8.5-10.1 MG/DL Corrected Calcium 9.2 8.5-10.1 MG/DL Magnesium Level 1.7 1.6-2.4 MG/DL Total Bilirubin 0.9 0.1-1.0 MG/DL Aspartate Amino Transf (AST/SGOT) 27 5-34 U/L Alanine Aminotransferase (ALT/SGPT) 50 0-55 U/L Alkaline Phosphatase 84 40-136 U/L Lactate Dehydrogenase 271 H 125-220 U/L Total Creatine Kinase 433 H 29-168 U/L Creatine Kinase MB 2.7 <6.6 NG/ML Myoglobin 93.4 H 10.0-92.0 NG/ML Troponin I < 0.028 <0.028 NG/ML C-Reactive Protein High Sensitivity 0.64 H 0.00-0.50 MG/DL B-Type Natriuretic Peptide < 10.0 <100.0 PG/ML Total Protein 8.0 6.4-8.2 GM/DL Albumin 3.9 3.2-4.5 GM/DL Procalcitonin 0.03 <0.10 NG/ML Micro Results Microbiology 11/06/20 Influenza Types A,B Antigen ([facility]) - Final, Complete My Orders Orders - SAVANNA REBOLLAR DO Ed Iv/Invasive Line Start (11/06/20 00:40) Ekg Tracing (11/06/20 00:40) O2 (11/06/20 00:40) Monitor-Rhythm Ecg Trace Only (11/06/20 00:40) Chest 1 View, Ap/Pa Only (11/06/20 00:40) BNP (11/06/20 00:40) Cbc With Automated Diff (11/06/20 00:40) Comprehensive Metabolic Panel (11/06/20 00:40) Creatine Kinase (11/06/20 00:40) Creatine Kinase Mb (11/06/20 00:40) Hs C Reactive Protein (11/06/20 00:40) Fibrin Degradation Products (11/06/20 00:40) Lactic Acid Analyzer (11/06/20 00:40) Magnesium (11/06/20 00:40) Procalcitonin (Pct) (11/06/20 00:40) Protime With Inr (11/06/20 00:40) Partial Thromboplastin Time (11/06/20 00:40) Blood Culture (11/06/20 00:40) Influenza A And B Antigens (11/06/20 00:40) Erythrocyte Sedimentation Rate (11/06/20 00:40) Myoglobin Serum (11/06/20 00:40) Troponin I (11/06/20 00:40) LDH (11/06/20 00:40) Coronavirus Sars-Cov-2 So 2019 (11/06/20 00:40) Covid 19 Inhouse Test (11/06/20 00:40) Ed Iv/Invasive Line Start (11/06/20 01:32) Lactated Ringers (Lr 1000 Ml Iv Solution (11/06/20 01:45) Potassium Chloride (Tablet) (Klor Con Ta (11/06/20 03:15) Potassium Chloride (Tablet) (Klor Con Ta (11/06/20 03:09) Ed Iv/Invasive Line Start (11/06/20 03:32) Lactated Ringers (Lr 1000 Ml Iv Solution (11/06/20 03:45) Medications Given in ED Vital Signs/I&O 11/06/20 11/06/20 11/06/20 00:44 01:33 04:49 Temp 36.1 Pulse 90 81 Resp 20 18 B/P (MAP) 102/76 (85) 106/69 Pulse Ox 98 98 98 O2 Delivery Room Air Nasal Cannula Room Air O2 Flow Rate 2.00 Capillary Refill : Progress Note : Progress Note PLACED IN ISOLATION ROOM PPE WORN COVID-19 TESTING PERFORMED GIVEN IV FLUIDS AND PO POTASSIUM OFFERED IV PAIN MEDICATION SEVERAL TIMES AND PT DECLINES. NO COUGH, NO DYSPNEA, NO HYPOXIA AT ANY TIME DURING ER STAY ECG Initial ECG Impression Date: Nov 06, 2020 Initial ECG Impression Time: 00:56 Initial ECG Rate: 91 Initial ECG Rhythm: Normal Sinus Diagnostic Imaging Comments CXR--NO ACUTE PROCESS, PENDING RADIOLOGIST REVIEW Reviewed: Reviewed by Me Departure Impression Primary Impression: Post-tonsillectomy pain Additional Impressions: Mild dehydration Hypokalemia Person under investigation for COVID-19 Disposition: HOME, SELF-CARE Condition: Stable Departure-Patient Inst. Referrals: EMMETT TREVINO MD [facility] (PCP/Family) Primary Care Physician Patient Instructions: Managing Pain After Surgery, Why Water Is Important to Health, Dehydration, Adult ED, Hypokalemia (DC), Postoperative Pain (DC), Coronavirus Disease 2019 (COVID-19) Overview, Preventing the Spread of an Infectious Disease Add. Discharge Instructions: CONTINUE ALL POST OP INSTRUCTIONS INCREASE YOUR FLUID INTAKE, ESPECIALLY GATORADE FOLLOW UP WITH DR. TREVINO TOMORROW IF NO BETTER SAVANNA REBOLLAR DO Nov 06, 2020 00:53
[2020-11-06 01:33] LABS: BASOPHILS % (AUTO) 0 % (0-10); EOSINOPHILS % (AUTO) 0 % (0-10); HEMATOCRIT 45 % (35-52); HEMOGLOBIN 15.1 g/dL (11.5-16.0); LYMPHOCYTES # (AUTO) 4.6 10^3/uL (1.0-4.0); LYMPHOCYTES % (AUTO) 38 % (12-44); MEAN CORPUSCULAR HEMOGLOBIN 29 pg (25-34); MEAN CORPUSCULAR HGB CONC 33 g/dL (32-36); MEAN CORPUSCULAR VOLUME 88 fL (80-99); MEAN PLATELET VOLUME 9.6 fL (9.0-12.2); MONOCYTES # (AUTO) 1.1 10^3/uL (0.0-1.0); MONOCYTES % (AUTO) 9 % (0-12); NEUTROPHILS # (AUTO) 6.3 10^3/uL (1.8-7.8); NEUTROPHILS % (AUTO) 52 % (42-75); PLATELET COUNT 325 10^3/uL (130-400); WHITE BLOOD COUNT 12.2 10^3/uL (4.3-11.0)
[2020-11-06] MEDS ORDERED: LACTATED RINGERS 1,000 ML IV ONE ×2 (01:45→03:45)
[2020-11-06 02:26] LABS: ALBUMIN 3.9 GM/DL (3.2-4.5); CHLORIDE 95 MMOL/L (98-107); POTASSIUM 2.6 MMOL/L (3.6-5.0); SODIUM 136 MMOL/L (135-145)
[2020-11-06 02:27] LABS: CALCIUM 9.1 MG/DL (8.5-10.1)
[2020-11-06 02:28] LABS: GLUCOSE 117 MG/DL (70-105)
[2020-11-06 02:30] LABS: BILIRUBIN,TOTAL 0.9 MG/DL (0.1-1.0); CARBON DIOXIDE 27 MMOL/L (21-32)
[2020-11-06 02:32] LABS: ALKALINE PHOSPHATASE 84 U/L (40-136); CREATININE SERUM 1.05 MG/DL (0.60-1.30); GFR ESTIMATED > 60
[2020-11-06 02:33] LABS: BUN/CREATININE RATIO 14
[2020-11-06 02:35] LABS: ALANINE AMINOTRANSFERASE 50 U/L (0-55); MAGNESIUM 1.7 MG/DL (1.6-2.4)
[2020-11-06 02:43] LABS: CREATINE KINASE MB 2.7 NG/ML (<6.6)
[2020-11-06 02:44] LABS: ERYTHROCYTE SEDIMENTATION RATE 24 MM/HR (0-20)
[2020-11-06 02:58] LABS: FIBRIN DEGRADATION PRODUCTS 0.33 UG/ML (0.00-0.49); PROTHROMBIN TIME PATIENT 13.6 SEC (12.2-14.7)
[2020-11-06] MEDS ORDERED: KCL 10 MEQ TAB (MICRO K) PO ONE ×2 (03:09→03:15)
[2020-11-06 04:38] LABS: CREATINE KINASE 433 U/L (29-168)
[2020-11-06 04:49] VITALS: BP 106/69
--- NOTE | 2020-11-06 08:02 | Diagnostic Imaging Report ---
EXAMINATION: Chest radiograph, portable AP view. DATE: 11/06/2020 2:53 AM INDICATION: 45-year-old female, dyspnea. COMPARISON: September 02, 2020. FINDINGS: Heart size and mediastinal contours are unremarkable. There is no identified pneumothorax. There is no large pleural effusion. There is no identified focal airspace consolidation. IMPRESSION: No identified acute cardiopulmonary abnormality. Dictated by: Dictated on workstation # [id number]
== END 2020-11-06 04:51 | disposition home or self-care (01) ==
LOC: EDUNIT# 00:34 → ER 00:37
DX: G89.18 Other acute postprocedural pain (principal); E86.0 Dehydration; E87.6 Hypokalemia; J45.909 Unspecified asthma, uncomplicated; K21.9 Gastro-esophageal reflux disease without esophagitis; G89.29 Other chronic pain; M54.9 Dorsalgia, unspecified; I10 Essential (primary) hypertension; Z20.822 Contact with and (suspected) exposure to COVID-19; Z79.891 Long term (current) use of opiate analgesic
CPT/HCPCS: 71045; 80053; 82550; 82553; 83605; 83615; 83735; 83874; 83880; 84145; 84484; 85025; 85379; 85610; 85652; 85730; 86141; 87040; 87804; 93005; 93041; 99284; U0002; 36415; 87635

== ENCOUNTER 2020-12-17 05:31 | Outpatient (RCR) | payer MEDICAID ==
[~2020-12-17] VITALS: Ht 160 cm; Wt 98.3 kg
[~2020-12-17 05:31] MED LIST changes: +METR-145 PO; +PHEN-827 PO
[2020-12-19] MEDS ORDERED: PANT40TA2 PO (08:05)
== END 2020-12-17 12:53 | disposition home or self-care (01) ==
LOC: PREOP 05:31
PROVIDERS: ATTEND Surgery
DX: Z01.812 Encounter for preprocedural laboratory examination (principal); K21.9 Gastro-esophageal reflux disease without esophagitis; Z20.822 Contact with and (suspected) exposure to COVID-19
CPT/HCPCS: 87635

== ENCOUNTER 2020-12-19 06:43 | Day surgery (SDC) | payer MEDICAID ==
[~2020-12-19] VITALS: Ht 160 cm; Wt 98.3 kg
[2020-12-19] MEDS ORDERED: LACTATED RINGERS 1,000 ML IV ONE (06:44)
[2020-12-19] MEDS ORDERED: proPOfol 200 MG/20 ML (DIPRIVAN) VIAL IV ONE (06:53)
[2020-12-19] MEDS ORDERED: MIDAZOLAM 2 MG/2 ML (VERSED) VIAL ONE (06:53)
[2020-12-19] MEDS ORDERED: LACTATED RINGERS 1,000 ML IV STA (06:57)
[2020-12-19] MEDS ORDERED: HURRICAINE EXT TUBE (BENZOCAINE) XX PRN (07:00)
[2020-12-19 07:15] VITALS: BP 131/88
[2020-12-19] MEDS ORDERED: HURRICAINE EXT TUBE (BENZOCAINE) ONE (07:34)
--- NOTE | 2020-12-19 07:38 | Progress Note-Pre Operative ---
Pre-Operative Progress Note H&P Reviewed The H&P was reviewed, patient examined and no changes noted. Date Seen by Provider: December 19, 2020 Time Seen by Provider: 07:38 Date H&P Reviewed: December 19, 2020 Time H&P Reviewed: 07:38 Pre-Operative Diagnosis: epigastric abd pain, n/v MARLON NAVARRO DO December 19, 2020 07:38
[2020-12-19 07:55] VITALS: BP 109/70
[2020-12-19 08:00] VITALS: BP 108/69
[2020-12-19 08:05] VITALS: BP 112/70
[2020-12-19] MEDS ORDERED: PANT40TA2 PO (08:05)
--- NOTE | 2020-12-19 08:06 | Discharge Inst-Simple/Standard ---
Discharge Inst-Standard Discharge Medications New, Converted or Re-Newed RX: Transmitted to Pharmacy Patient Instructions/Follow Up Plan of Care/Instructions/FU: 2-3 WEEKS MLEANIE Activity as Tolerated: Yes Discharge Diet: Regular Diet (SMALL REGULAR MEALS) MARLON NAVARRO DO December 19, 2020 08:06
[2020-12-19 08:30] VITALS: BP 113/77
[2020-12-19 08:35] VITALS: BP 113/77
--- NOTE | 2020-12-19 08:38 | Anesthesia-General Post-Op ---
MAC Patient Condition Mental Status/LOC: Same as Preop Cardiovascular: Satisfactory Nausea/Vomiting: Absent Respiratory: Satisfactory Pain: Controlled Complications: Absent Post Op Complications Complications None Follow Up Care/Instructions Patient Instructions None needed. Anesthesiology Discharge Order Discharge Order Patient is doing well, no complaints, stable vital signs, no apparent adverse anesthesia problems. No complications reported per nursing. GARCIA NELSON CRNA December 19, 2020 08:38
--- NOTE | 2020-12-19 22:41 | OPERATIVE REPORT ---
DATE OF SERVICE: 12/19/2020 PREOPERATIVE DIAGNOSES: Epigastric abdominal pain, nausea and vomiting. POSTOPERATIVE DIAGNOSIS: Gastritis. PROCEDURE: EGD with biopsies. SURGEON: Marlon Quezada DO ANESTHESIA: Per NARCOTICS AND/OR VICE DETECTIVE. ESTIMATED BLOOD LOSS: None. COMPLICATIONS: None. INDICATIONS: The patient is a 45-year-old female who has been having epigastric abdominal pain, nausea and vomiting. She understands risks and benefits of procedure and wished to proceed with procedure. Consent was signed in the chart. DESCRIPTION OF PROCEDURE: The patient was taken to the endoscopy suite, placed in left lateral recumbent position. Timeout was performed. Scope was inserted in mouth, down the esophagus, stomach and into the duodenum without difficulty. There were no polyps, masses or ulcerations within the duodenum. Scope was slowly retracted back into the stomach where it was further insufflated. Erythematous changes throughout the stomach were present. Biopsy of the antrum and body were obtained. Scope was retroflexed noting no other pathology. Scope was returned to its normal position, slowly withdrawn to distal esophagus. Biopsy of GE junction was obtained. Scope was then slowly retracted back until completely removed. Noting no other pathology. The patient tolerated procedure well without any complications. She was taken to recovery room in stable condition. RECOMMENDATIONS: The patient stopped omeprazole and started on Protonix 40 mg daily. We will see how she is doing in a couple of weeks if further recommendations pending pathology and symptoms. Job ID: [id number] DocumentID: [id number] Dictated Date: 12/19/2020 13:05:56 Bosom Presser Date: 12/19/2020 22:41:12 Dictated By: MARLON QUEZADA DO
== END 2020-12-19 08:35 | disposition home or self-care (01) ==
LOC: ENDO 06:43
PROVIDERS: ATTEND Surgery
DX: K21.00 Gastro-esophageal reflux disease with esophagitis, without bleeding (principal); R10.9 Unspecified abdominal pain; R11.2 Nausea with vomiting, unspecified; I10 Essential (primary) hypertension; G47.33 Obstructive sleep apnea (adult) (pediatric); J45.909 Unspecified asthma, uncomplicated; E66.9 Obesity, unspecified; F41.9 Anxiety disorder, unspecified; F32.9 Major depressive disorder, single episode, unspecified; Z79.899 Other long term (current) drug therapy; G62.9 Polyneuropathy, unspecified; Z99.89 Dependence on other enabling machines and devices; Z20.822 Contact with and (suspected) exposure to COVID-19; Z90.49 Acquired absence of other specified parts of digestive tract; Z90.89 Acquired absence of other organs; Z68.38 Body mass index [BMI] 38.0-38.9, adult

== ENCOUNTER → 2021-01-22 | Outpatient (CLI) | payer MEDICAID ==
[~2021-01-22] MED LIST changes: +PANT40TA2 PO
--- NOTE | 2021-01-22 18:52 | Diagnostic Imaging Report ---
PROCEDURE: US PELVIC (NON OB) TECHNIQUE: Multiple real-time grayscale images were obtained over the pelvis in various projections transabdominally. INDICATION: Hysterectomy and nephrectomy with left-sided pain. FINDINGS: The uterus and right ovary are surgically absent. There is a left ovarian cyst with a nonvascularized, thin curvilinear internal septation that measures 3.2 x 2.3 x 2.6 cm. There is no evidence for adnexal torsion. Urinary bladder unremarkable. IMPRESSION: Thin septation associated with a 3.2 cm otherwise simple left ovarian cyst without evidence for adnexal torsion. Dictated by: Dictated on workstation # [id number]
== END ==
LOC: RAD 14:18
PROVIDERS: ATTEND Obstetrics & Gynecology
DX: N83.202 Unspecified ovarian cyst, left side (principal); N28.89 Other specified disorders of kidney and ureter
CPT/HCPCS: 76856

== ENCOUNTER → 2021-02-06 | Outpatient (CLI) | payer MEDICAID ==
--- NOTE | 2021-02-06 14:05 | Diagnostic Imaging Report ---
PROCEDURE: CT abdomen and pelvis without contrast. TECHNIQUE: Multiple contiguous axial images were obtained through the abdomen and pelvis without the use of intravenous contrast. Auto Exposure Controls were utilized during the CT exam to meet ALARA standards for radiation dose reduction. INDICATION: Abdominal pain. COMPARISON: No prior studies are available for comparison. FINDINGS: The lung bases are clear. Liver is unremarkable. Gallbladder is surgically absent. There is no biliary ductal dilatation. The pancreas and spleen are unremarkable. No adrenal mass is detected. No renal calculi or hydronephrosis is detected. Aorta is nonaneurysmal. Bowel loops appear to be normal in caliber. There is no obstruction. Appendix is unremarkable in the right lower quadrant. There is a moderate amount of stool in the rectum. No free fluid or fluid collection is seen. There is no free air. There are surgical clips in the pelvis. Bladder is decompressed. Small left ovarian cyst is noted measuring 2 cm. IMPRESSION: Moderate stool in the rectum. There is a small left ovarian cyst. No acute feature in the abdomen or pelvis is identified. Dictated by: Dictated on workstation # [id number]
== END ==
LOC: RAD 13:15
PROVIDERS: ATTEND Obstetrics & Gynecology
DX: N83.202 Unspecified ovarian cyst, left side (principal)
CPT/HCPCS: 74176

== ENCOUNTER 2021-04-15 09:41 | Emergency (ER) | payer MEDICAID ==
[~2021-04-15] VITALS: Ht 162 cm; Wt 94.0 kg
--- NOTE | 2021-04-15 10:12 | ED Chest Pain ---
General Chief Complaint: Chest Pain Stated Complaint: CP,NECK/ARM PAIN Source: patient Exam Limitations: no limitations History of Present Illness Date Seen by Provider: Apr 15, 2021 Time Seen by Provider: 09:55 Initial Comments Patient is a 46-year-old female who presents to the emergency department today with a chief complaint of substernal chest discomfort, pain between her shoulder blades, pain in her left shoulder and left side of her neck. Onset this morning when she woke up at around 6 AM. Patient states the pain has been coming and going. She endorses feeling a little nauseous as well as a little short of breath. No diaphoresis. Nothing seems to bring the pain on, nothing specifically makes it better. She is not taken any medication for the pain. Patient has a history of hypertension but states that her primary care provider has recently taken her off blood pressure medicines. Of note her blood pressure is quite high at 170/101. No recent fevers, chills, cough or congestion. 2 weeks ago she did have quite a prolonged asthma exacerbation with lots of coughing. She states she has been using her rescue inhaler more frequently than normal. Patient denies any family history of young coronary artery disease. She is not a smoker. All other review of systems reviewed and negative except as stated. Timing/Duration: 1-3 hours Severity/Quality: moderate, sharp Location: shoulder, back Radiation: arms (Left), neck (Left) Prior CP/Workup: cardiolye scan Associated Symptoms: nausea/vomiting (Nausea without vomiting) Allergies and Home Medications Allergies Coded Allergies: No Known Drug Allergies (Unverified , 08/28/19) Home Medications Albuterol Sulfate 1 Puff Puff, 2 PUFF IH Q4H PRN for WHEEZING, (Reported) 1 PUFF = 90 MCG Chlorthalidone 25 Mg Tablet, 25 MG PO DAILY, (Reported) Dexamethasone 1 Mg/1 Ml Linda, 2 TSP PO DAILY Mix 4MG/2.5CC water Prescribed by: KAJAL VENTURA on 10/31/20 1132 Fluticasone/Salmeterol Unknown Strength Blst.wBhavanadev, 1 PUFF IH BID, (Reported) Levocetirizine Dihydrochloride 5 Mg Tablet, 5 MG PO DAILY, (Reported) Metronidazole 500 Mg Tablet, 500 MG PO DAILY, (Reported) Pantoprazole Sodium 40 Mg Tablet.dr, 40 MG PO DAILY Prescribed by: MARLON NAVARRO on 12/19/20 0805 Phenazopyridine HCl 200 Mg Tablet, 200 MG PO DAILY, (Reported) Patient Home Medication List Home Medication List Reviewed: Yes Review of Systems Review of Systems Constitutional: see HPI Respiratory: Shortness of Air Cardiovascular: Chest Pain Gastrointestinal: Nausea Genitourinary: No Symptoms Reported Musculoskeletal: back pain Skin: no symptoms reported Psychiatric/Neurological: No Symptoms Reported All Other Systems Reviewed Negative Unless Noted: Yes Past Iajtuur-Xfdluc-Qagoek Hx Immunizations Up To Date Tetanus Booster (TDap): Less than 5yrs PED Vaccines UTD: Yes Seasonal Allergies Seasonal Allergies: Yes Past Medical History Surgeries: Yes (CS X5;UMBILICAL HERNIA;KNEE SX; EYE SX X2;LAVH/LIDIA/RSO) Abdominal, Section, Eye Surgery, Gallbladder, Hysterectomy, Oophorectomy, Orthopedic, Tonsillectomy Respiratory: Yes Asthma, Sleep Apnea Currently Using CPAP: Yes (Sleep Apnea ) Currently Using BIPAP: No Cardiac: Yes Hypertension Neurological: No Reproductive Disorders: Yes Female Reproductive Disorders: Menstrual Problems 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 Sexually Transmitted Disease: No HIV/AIDS: No Genitourinary: No Gastrointestinal: Yes Gastroesophageal Reflux, Chronic Constipation Musculoskeletal: Yes Chronic Back Pain Endocrine: No HEENT: Yes (GLASSES, TONSILLAR HYPERTROPHY; EYE SURGERY X 2; TONSILLECTOMY) Loss of Vision: Denies Hearing Impairment: Denies Cancer: No Psychosocial: Yes Anxiety, Depression Integumentary: No Blood Disorders: Yes (AFTER C-SECTIONS ) Adverse Reaction/Blood Tranf: No (HAS HAD BLOOD WITH NO REACTION) Family Medical History No Pertinent Family Hx PAST SURGICAL HISTORY: - X 5 -KNEE SURGERY -EYE SURGERY X 2 -CHOLECYSTECOMTY 08/2019 -LAVH/LYSIS OF ADHESIONS/RIGHT SALPINGO-OOPHORECTOMY 04/2013 -TONSILLECTOMY 10/31/[address] TREVINO Physical Exam Vital Signs Vital Signs - First Documented 04/15/21 09:41 Temp 36.0 Pulse 92 Resp 18 B/P (MAP) 169/99 (122) Pulse Ox 98 O2 Delivery Room Air Capillary Refill : Height, Weight, BMI Height: 5'3.00" Weight: 228lbs. oz. 103.497467ns; 38.39 BMI Method:Stated General Appearance: No Apparent Distress, WD/WN HEENT: PERRL/EOMI Neck: Normal Inspection Respiratory: Chest Non Tender, Lungs Clear, Normal Breath Sounds, No Accessory Muscle Use, No Respiratory Distress Cardiovascular: Regular Rate, Rhythm, No Edema, Normal Peripheral Pulses Gastrointestinal: Non Tender, Soft Extremity: Normal Inspection, Normal Range of Motion, Non Tender, No Calf Tenderness, Other (Patient has some reproducible tenderness just to the medial aspect of the left shoulder and posterior left lower rib cage; no overlying rashes) Neurologic/Psychiatric: Alert, Oriented x3, No Motor/Sensory Deficits, Normal Mood/Affect Skin: Normal Color, Warm/Dry Progress/Results/Core Measures Results/Orders Lab Results Laboratory Tests Test 04/15/21 10:55 04/15/21 13:45 Range/Units White Blood Count 6.2 4.3-11.0 10^3/uL Red Blood Count 4.54 3.80-5.11 10^6/uL Hemoglobin 13.7 11.5-16.0 g/dL Hematocrit 42 35-52 % Mean Corpuscular Volume 93 80-99 fL Mean Corpuscular Hemoglobin 30 25-34 pg Mean Corpuscular Hemoglobin Concent 33 32-36 g/dL Red Cell Distribution Width 13.1 10.0-14.5 % Platelet Count 275 130-400 10^3/uL Mean Platelet Volume 10.4 9.0-12.2 fL Immature Granulocyte % (Auto) 0 % Neutrophils (%) (Auto) 61 42-75 % Lymphocytes (%) (Auto) 27 12-44 % Monocytes (%) (Auto) 10 0-12 % Eosinophils (%) (Auto) 1 0-10 % Basophils (%) (Auto) 1 0-10 % Neutrophils # (Auto) 3.8 1.8-7.8 10^3/uL Lymphocytes # (Auto) 1.7 1.0-4.0 10^3/uL Monocytes # (Auto) 0.6 0.0-1.0 10^3/uL Eosinophils # (Auto) 0.1 0.0-0.3 10^3/uL Basophils # (Auto) 0.0 0.0-0.1 10^3/uL Immature Granulocyte # (Auto) 0.0 0.0-0.1 10^3/uL Sodium Level 140 135-145 MMOL/L Potassium Level 3.9 3.6-5.0 MMOL/L Chloride Level 108 H 98-107 MMOL/L Carbon Dioxide Level 22 21-32 MMOL/L Anion Gap 10 5-14 MMOL/L Blood Urea Nitrogen 10 7-18 MG/DL Creatinine 0.86 0.60-1.30 MG/DL Estimat Glomerular Filtration Rate 87 BUN/Creatinine Ratio 12 Glucose Level 93 70-105 MG/DL Calcium Level 9.2 8.5-10.1 MG/DL Total Creatine Kinase 441 H 29-168 U/L Troponin I < 0.028 < 0.028 <0.028 NG/ML My Orders Orders - EDGARDO PARK MD Ekg Tracing (04/15/21 09:47) Ed Iv/Invasive Line Start (04/15/21 10:07) Basic Metabolic Panel (04/15/21 10:07) Creatine Kinase (04/15/21 10:07) Troponin I (04/15/21 10:07) Chest 1 View, Ap/Pa Only (04/15/21 10:07) Cbc With Automated Diff (04/15/21 12:38) Ketorolac Injection (Toradol Injection) (04/15/21 13:00) Troponin I (04/15/21 13:37) Vital Signs/I&O 04/15/21 09:41 Temp 36.0 Pulse 92 Resp 18 B/P (MAP) 169/99 (122) Pulse Ox 98 O2 Delivery Room Air Progress Progress Note : Time: 14:49 Progress Note Serial cardiac enzymes are negative. Chest x-ray and other basic labs are reviewed and are all reassuring. Patient's vital signs have been stable. Patient is treated in the emergency department with 15 mg of IV Toradol. No clinical or objective findings to warrant further studies from the emergency department. All questions are sought and answered. Patient is stable for discharge. Initial ECG Impression Date: Apr 15, 2021 Initial ECG Impression Time: 10:00 Initial ECG Rate: 81 Initial ECG Rhythm: Normal Sinus Initial ECG Intervals: Normal Initial ECG Impression: Normal Comment LVH Diagnostic Imaging Diagonstic Imaging: Xray Plain Films/CT/US/NM/MRI: chest Comments [facility] [place], [place] NAME: HEATHER ALLEN REC#: [id number] PT STATUS: REG ER : 1975 PHYSICIAN: EDGARDO PARK MD ADMIT DATE: 04/15/21/ER Draft Date of Exam:04/15/21 CHEST 1 VIEW, AP/PA ONLY INDICATION: Weakness. COMPARISON: 11/06/2020. FINDINGS: Single view of the chest demonstrates clear lungs bilaterally. The heart is normal. There is no pneumothorax. Osseous structures are normal. IMPRESSION: Negative chest. Dictated on workstation # [id number] Dict: 04/15/21 1041 Trans: 04/15/21 1042 [id number] Interpreted by: SANA MURILLO Electronically signed by: Departure Impression Primary Impression: Chest pain Qualified Codes: R07.9 - Chest pain, unspecified Disposition: 01 HOME, SELF-CARE Condition: Stable Departure-Patient Inst. Decision time for Depature: 14:49 Referrals: [facility] (PCP/Family) Primary Care Physician Patient Instructions: Chest Pain That Is Not Caused by the Heart (DC) Add. Discharge Instructions: Push lots of fluids to stay well-hydrated. Alternate ibuprofen and Toradol as needed for discomfort/pain. Please follow-up with your primary care physician. Return to the emergency room for any new, concerning or emergent complaints. Please continue your daily medications as previously prescribed. Talk to your primary care doctor about medications for high blood pressure. EDGARDO PARK MD Apr 15, 2021 10:12
--- NOTE | 2021-04-15 10:43 | Diagnostic Imaging Report ---
INDICATION: Weakness. COMPARISON: 11/06/2020. FINDINGS: Single view of the chest demonstrates clear lungs bilaterally. The heart is normal. There is no pneumothorax. Osseous structures are normal. IMPRESSION: Negative chest. Dictated by: Dictated on workstation # [id number]
[2021-04-15 11:23] LABS: CHLORIDE 108 MMOL/L (98-107); POTASSIUM 3.9 MMOL/L (3.6-5.0); SODIUM 140 MMOL/L (135-145)
[2021-04-15 11:24] LABS: CALCIUM 9.2 MG/DL (8.5-10.1)
[2021-04-15 11:25] LABS: GLUCOSE 93 MG/DL (70-105)
[2021-04-15 11:26] LABS: CARBON DIOXIDE 22 MMOL/L (21-32)
[2021-04-15 11:28] LABS: CREATININE SERUM 0.86 MG/DL (0.60-1.30); GFR ESTIMATED 87
[2021-04-15 11:29] LABS: BUN/CREATININE RATIO 12
[2021-04-15 11:31] LABS: CREATINE KINASE 441 U/L (29-168)
[2021-04-15 12:46] LABS: BASOPHILS % (AUTO) 1 % (0-10); EOSINOPHILS # (AUTO) 0.1 10^3/uL (0.0-0.3); EOSINOPHILS % (AUTO) 1 % (0-10); HEMATOCRIT 42 % (35-52); HEMOGLOBIN 13.7 g/dL (11.5-16.0); LYMPHOCYTES # (AUTO) 1.7 10^3/uL (1.0-4.0); LYMPHOCYTES % (AUTO) 27 % (12-44); MEAN CORPUSCULAR HEMOGLOBIN 30 pg (25-34); MEAN CORPUSCULAR HGB CONC 33 g/dL (32-36); MEAN CORPUSCULAR VOLUME 93 fL (80-99); MEAN PLATELET VOLUME 10.4 fL (9.0-12.2); MONOCYTES # (AUTO) 0.6 10^3/uL (0.0-1.0); MONOCYTES % (AUTO) 10 % (0-12); NEUTROPHILS # (AUTO) 3.8 10^3/uL (1.8-7.8); NEUTROPHILS % (AUTO) 61 % (42-75); PLATELET COUNT 275 10^3/uL (130-400); WHITE BLOOD COUNT 6.2 10^3/uL (4.3-11.0)
[2021-04-15] MEDS ORDERED: KETOROLAC 30 MG/ML VIAL IVP ONE (13:00)
[2021-04-15 15:12] VITALS: BP 135/86
== END 2021-04-15 15:11 | disposition home or self-care (01) ==
LOC: EDUNIT# 09:41 → ER 09:43
DX: R07.9 Chest pain, unspecified (principal); J45.909 Unspecified asthma, uncomplicated; I10 Essential (primary) hypertension; G47.30 Sleep apnea, unspecified; K21.9 Gastro-esophageal reflux disease without esophagitis; Z79.899 Other long term (current) drug therapy
CPT/HCPCS: 36415; 71045; 80048; 82550; 84484; 85025; 93005

== ENCOUNTER 2021-05-31 13:33 | Emergency (ER) | payer MEDICAID ==
[~2021-05-31] VITALS: Ht 160 cm; Wt 98.8 kg
--- NOTE | 2021-05-31 14:09 | ED Cardiac General ---
History of Present Illness General Chief Complaint: Cardiac/General Problems Stated Complaint: ELEV BP Nursing Triage Note: PT AMB TO RM 7 WITH COMPLAINT OF HIGH BLOOD PRESSURE. STATES STARTED LAST NIGHT. STATES SHE HAS SHAKINESS AND SOME DIZZINESS. Source: patient Exam Limitations: no limitations (ALMA ACOSTA APRN) History of Present Illness Date Seen by Provider: May 31, 2021 Time Seen by Provider: 14:07 Initial Comments To ER by private vehicle with reports of dizziness that she believes is secondary to high blood pressure. She was formerly on chlorthalidone but had some issues with low potassium so that was discontinued. She had subsequently been off of medications for a long time and then 1 month ago was restarted on losartan 25 mg daily. Beginning last night she developed some shakiness dizziness and generally not feeling right. Timing/Duration: 24 hours, changing over time Severity: moderate Activities at Onset: none NTG SL CRYPTOLOGIC SUPERVISOR: No ASA po CRYPTOLOGIC SUPERVISOR: No (ALMA ACOSTA APRN) Allergies and Home Medications Allergies Coded Allergies: No Known Drug Allergies (Unverified , 08/28/19) Patient Home Medication List Home Medication List Reviewed: Yes (ALMA ACOSTA APRN) Albuterol Sulfate (Proair Hfa) 1 Puff Puff, 2 PUFF IH Q4H PRN for WHEEZING, (Reported) Entered as Reported by: MINDI BONILLA on 10/27/20 1243 Chlorthalidone (Chlorthalidone) 25 Mg Tablet, 25 MG PO DAILY, (Reported) Entered as Reported by: TONE SAPP on 08/28/19 1246 Dexamethasone (Decadron Intensol Oral Solution (Repackaging)) 1 Mg/1 Ml Linda, 2 TSP PO DAILY Prescribed by: KAJAL VENTURA on 10/31/20 1132 Fluticasone/Salmeterol (Advair 250-50 Diskus) Unknown Strength Blst.w.dev, 1 PUFF IH BID, (Reported) Entered as Reported by: MINDI BONILLA on 10/27/20 1243 Levocetirizine Dihydrochloride (Xyzal) 5 Mg Tablet, 5 MG PO DAILY, (Reported) Entered as Reported by: KEYONNA RESENDIZ on 12/11/20 1006 Metronidazole (Metronidazole) 500 Mg Tablet, 500 MG PO DAILY, (Reported) Entered as Reported by: KEYONNA RESENDIZ on 12/11/20 1006 Pantoprazole Sodium (Protonix) 40 Mg Tablet.dr, 40 MG PO DAILY Prescribed by: MARLON NAVARRO on 12/19/20 0805 Phenazopyridine HCl (Phenazopyridine HCl) 200 Mg Tablet, 200 MG PO DAILY, (Reported) Entered as Reported by: KEYONNA RESENDIZ on 12/11/20 1006 Review of Systems Review of Systems Constitutional: see HPI EENTM: No Symptoms Reported Respiratory: No Symptoms Reported Cardiovascular: No Symptoms Reported Gastrointestinal: No Symptoms Reported Genitourinary: No Symptoms Reported Musculoskeletal: no symptoms reported Skin: no symptoms reported Psychiatric/Neurological: No Symptoms Reported Endocrine: No Symptoms Reported Hematologic/Lymphatic: No Symptoms Reported (ALMA ACOSTA APRN) Past Gnbgaeh-Kzoqeq-Zcowfo Hx Patient Social History Tobacco Use?: No Use of E-Cig and/or Vaping dev: No Substance use?: No Alcohol Use?: No Pt feels they are or have been: No (ALMA ACOSTA APRN) Immunizations Up To Date Tetanus Booster (TDap): Less than 5yrs PED Vaccines UTD: Yes First/Initial COVID19 Vaccinat: NOVEMBER Second COVID19 Vaccination Gerardo: NOVEMBER COVID19 Vaccine Form Building Supervisor: NASH (ALMA ACOSTA APRN) Seasonal Allergies Seasonal Allergies: Yes (ALMA ACOSTA APRN) Past Medical History Surgeries: Yes (CS X5;UMBILICAL HERNIA;KNEE SX; EYE SX X2;LAVH/LIDIA/RSO) Abdominal, Section, Eye Surgery, Gallbladder, Hysterectomy, Oophorectomy, Orthopedic, Tonsillectomy Respiratory: Yes Asthma, Sleep Apnea Currently Using CPAP: Yes (Sleep Apnea ) Currently Using BIPAP: No Cardiac: Yes Hypertension Neurological: No Reproductive Disorders: Yes Female Reproductive Disorders: Menstrual Problems 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 Sexually Transmitted Disease: No HIV/AIDS: No Genitourinary: No Gastrointestinal: Yes Gastroesophageal Reflux, Chronic Constipation Musculoskeletal: Yes Chronic Back Pain Endocrine: No HEENT: Yes (GLASSES, TONSILLAR HYPERTROPHY; EYE SURGERY X 2; TONSILLECTOMY) Loss of Vision: Denies Hearing Impairment: Denies Cancer: No Psychosocial: Yes Anxiety, Depression Integumentary: No Blood Disorders: Yes (AFTER C-SECTIONS ) Adverse Reaction/Blood Tranf: No (HAS HAD BLOOD WITH NO REACTION) (ALMA ACOSTA APRN) Family Medical History No Pertinent Family Hx PAST SURGICAL HISTORY: - X 5 -KNEE SURGERY -EYE SURGERY X 2 -CHOLECYSTECOMTY 08/2019 -LAVH/LYSIS OF ADHESIONS/RIGHT SALPINGO-OOPHORECTOMY 04/2013 -TONSILLECTOMY 10/31/[address] TREVINO (ALMA ACOSTA APRN) Physical Exam Vital Signs Vital Signs - First Documented 05/31/21 13:45 Pulse 81 Resp 20 B/P (MAP) 168/98 (121) Pulse Ox 99 O2 Delivery Room Air (SOPHIA MARIE MD) Vital Signs Capillary Refill : Less Than 3 Seconds (ALMA ACOSTA APRN) Height, Weight, BMI Height: 5'3.00" Weight: 228lbs. oz. 103.534116zu; 38.00 BMI Method:Stated General Appearance: No Apparent Distress, WD/WN Neck: Full Range of Motion, Normal Inspection Respiratory: No Accessory Muscle Use, No Respiratory Distress Cardiovascular: Regular Rate, Rhythm, No Edema, Normal Peripheral Pulses Gastrointestinal: Normal Bowel Sounds, Non Tender, Soft Extremity: Normal Capillary Refill, Normal Inspection Neurologic/Psychiatric: Alert, Oriented x3 Skin: Normal Color, Warm/Dry (ALMA ACOSTA APRN) Progress/Results/Core Measures Results/Orders Lab Results Laboratory Tests Test 05/31/21 14:11 05/31/21 14:30 Range/Units Urine Color YELLOW Urine Clarity CLEAR Urine pH 7.0 5-9 Urine Specific [place] 1.020 1.016-1.022 Urine Protein NEGATIVE NEGATIVE Urine Glucose (UA) NEGATIVE NEGATIVE Urine Ketones NEGATIVE NEGATIVE Urine Nitrite NEGATIVE NEGATIVE Urine Bilirubin NEGATIVE NEGATIVE Urine Urobilinogen 0.2 < = 1.0 MG/DL Urine Leukocyte Esterase NEGATIVE NEGATIVE Urine RBC (Auto) NEGATIVE NEGATIVE Urine RBC RARE /HPF Urine WBC NONE /HPF Urine Squamous Epithelial Cells 2-5 /HPF Urine Crystals NONE /LPF Urine Bacteria NEGATIVE /HPF Urine Casts NONE /LPF Urine Mucus NEGATIVE /LPF Urine Culture Indicated NO White Blood Count 6.0 4.3-11.0 10^3/uL Red Blood Count 4.60 3.80-5.11 10^6/uL Hemoglobin 13.6 11.5-16.0 g/dL Hematocrit 41 35-52 % Mean Corpuscular Volume 89 80-99 fL Mean Corpuscular Hemoglobin 30 25-34 pg Mean Corpuscular Hemoglobin Concent 33 32-36 g/dL Red Cell Distribution Width 12.9 10.0-14.5 % Platelet Count 265 130-400 10^3/uL Mean Platelet Volume 9.4 9.0-12.2 fL Immature Granulocyte % (Auto) 0 % Neutrophils (%) (Auto) 53 42-75 % Lymphocytes (%) (Auto) 33 12-44 % Monocytes (%) (Auto) 11 0-12 % Eosinophils (%) (Auto) 2 0-10 % Basophils (%) (Auto) 1 0-10 % Neutrophils # (Auto) 3.2 1.8-7.8 10^3/uL Lymphocytes # (Auto) 1.9 1.0-4.0 10^3/uL Monocytes # (Auto) 0.7 0.0-1.0 10^3/uL Eosinophils # (Auto) 0.1 0.0-0.3 10^3/uL Basophils # (Auto) 0.1 0.0-0.1 10^3/uL Immature Granulocyte # (Auto) 0.0 0.0-0.1 10^3/uL Sodium Level 138 135-145 MMOL/L Potassium Level 3.9 3.6-5.0 MMOL/L Chloride Level 106 98-107 MMOL/L Carbon Dioxide Level 22 21-32 MMOL/L Anion Gap 10 5-14 MMOL/L Blood Urea Nitrogen 9 7-18 MG/DL Creatinine 0.97 0.60-1.30 MG/DL Estimat Glomerular Filtration Rate 76 BUN/Creatinine Ratio 9 Glucose Level 91 70-105 MG/DL Calcium Level 9.3 8.5-10.1 MG/DL Thyroid Stimulating Hormone (TSH) 1.32 0.35-4.94 UIU/ML Serum Test, Qualitative NEGATIVE NEGATIVE (SOPHIA MARIE MD) Vital Signs/I&O 05/31/21 05/31/21 13:45 15:37 Pulse 81 80 Resp 20 16 B/P (MAP) 168/98 (121) 138/89 Pulse Ox 99 98 O2 Delivery Room Air Room Air (SOPHIA MARIE MD) Blood Pressure Mean: 121 Departure Impression Primary Impression: Hypertension Disposition: 01 HOME, SELF-CARE Condition: Stable Departure-Patient Inst. Decision time for Depature: 14:09 (ALMA ACOSTA APRN) Referrals: [facility] (PCP/Family) Primary Care Physician Patient Instructions: High Blood Pressure (DC), DASH Diet Add. Discharge Instructions: 1. Increase your losartan to 50 mg daily. This would be 2 of your pills daily. Follow-up with your doctor this week for recheck. All discharge instructions reviewed with patient and/or family. Voiced understanding. ATTENDING PHYSICIAN NOTE: I was physically present as attending physician in the emergency department during the care of this patient, but I was not directly involved in the decision making or delivery of care for this patient. (SOPHIA MARIE MD) ALMA ACOSTA APRN May 31, 2021 14:09 SOPHIA MARIE MD Jun 02, 2021 07:22
[2021-05-31] MEDS ORDERED: cloNIDine 0.1 MG (CATAPRES) TAB PO ONE (14:15)
[2021-05-31 14:19] LABS: BILIRUBIN,URINE NEGATIVE (NEGATIVE); CLARITY,URINE CLEAR; COLOR,URINE YELLOW; GLUCOSE, URINE (UA) NEGATIVE (NEGATIVE); KETONES,URINE NEGATIVE (NEGATIVE); LEUKOCYTE ESTERASE ,URINE NEGATIVE (NEGATIVE); NITRITE,URINE NEGATIVE (NEGATIVE); PROTEIN,URINE NEGATIVE (NEGATIVE)
[2021-05-31 14:27] LABS: RBC,URINE RARE /HPF
[2021-05-31 14:28] LABS: BACTERIA,URINE NEGATIVE /HPF
[2021-05-31 14:37] LABS: BASOPHILS # (AUTO) 0.1 10^3/uL (0.0-0.1); BASOPHILS % (AUTO) 1 % (0-10); EOSINOPHILS # (AUTO) 0.1 10^3/uL (0.0-0.3); EOSINOPHILS % (AUTO) 2 % (0-10); HEMATOCRIT 41 % (35-52); HEMOGLOBIN 13.6 g/dL (11.5-16.0); LYMPHOCYTES # (AUTO) 1.9 10^3/uL (1.0-4.0); LYMPHOCYTES % (AUTO) 33 % (12-44); MEAN CORPUSCULAR HEMOGLOBIN 30 pg (25-34); MEAN CORPUSCULAR HGB CONC 33 g/dL (32-36); MEAN CORPUSCULAR VOLUME 89 fL (80-99); MEAN PLATELET VOLUME 9.4 fL (9.0-12.2); MONOCYTES # (AUTO) 0.7 10^3/uL (0.0-1.0); MONOCYTES % (AUTO) 11 % (0-12); NEUTROPHILS # (AUTO) 3.2 10^3/uL (1.8-7.8); NEUTROPHILS % (AUTO) 53 % (42-75); PLATELET COUNT 265 10^3/uL (130-400)
[2021-05-31 15:17] LABS: POTASSIUM 3.9 MMOL/L (3.6-5.0)
[2021-05-31 15:18] LABS: CALCIUM 9.3 MG/DL (8.5-10.1)
[2021-05-31 15:23] LABS: CREATININE SERUM 0.97 MG/DL (0.60-1.30)
[2021-05-31 15:37] VITALS: BP 138/89
== END 2021-05-31 15:37 | disposition home or self-care (01) ==
LOC: EDUNIT# 13:33 → ER 13:35
DX: I10 Essential (primary) hypertension (principal); J45.909 Unspecified asthma, uncomplicated; G47.30 Sleep apnea, unspecified; K21.9 Gastro-esophageal reflux disease without esophagitis; Z79.899 Other long term (current) drug therapy
CPT/HCPCS: 36415; 80048; 81000; 84443; 84703; 85025; 99283

== ENCOUNTER 2021-07-09 01:00 | Emergency (ER) | payer MEDICAID ==
[~2021-07-09] VITALS: Ht 160 cm; Wt 96.6 kg
[2021-07-09 01:45] LABS: BASOPHILS % (AUTO) 1 % (0-10); EOSINOPHILS # (AUTO) 0.1 10^3/uL (0.0-0.3); EOSINOPHILS % (AUTO) 1 % (0-10); HEMATOCRIT 39 % (35-52); LYMPHOCYTES % (AUTO) 32 % (12-44); MEAN CORPUSCULAR HEMOGLOBIN 30 pg (25-34); MEAN CORPUSCULAR HGB CONC 33 g/dL (32-36); MEAN CORPUSCULAR VOLUME 90 fL (80-99); MEAN PLATELET VOLUME 9.7 fL (9.0-12.2); MONOCYTES # (AUTO) 0.6 10^3/uL (0.0-1.0); MONOCYTES % (AUTO) 10 % (0-12); NEUTROPHILS # (AUTO) 3.6 10^3/uL (1.8-7.8); NEUTROPHILS % (AUTO) 57 % (42-75); PLATELET COUNT 297 10^3/uL (130-400); WHITE BLOOD COUNT 6.3 10^3/uL (4.3-11.0)
[2021-07-09] MEDS ORDERED: ASPIRIN 81 MG CHEW (CHILDREN'S ASA) PO ONE (01:45)
[2021-07-09] MEDS ORDERED: KETOROLAC 30 MG/ML VIAL IVP ONE (01:45)
[2021-07-09 01:49] LABS: ALBUMIN 3.9 GM/DL (3.2-4.5); CHLORIDE 108 MMOL/L (98-107); POTASSIUM 3.4 MMOL/L (3.6-5.0); SODIUM 140 MMOL/L (135-145)
[2021-07-09 01:50] LABS: CALCIUM 8.9 MG/DL (8.5-10.1); INR 0.9 (0.8-1.4)
[2021-07-09 01:51] LABS: GLUCOSE 107 MG/DL (70-105); TOTAL PROTEIN 7.4 GM/DL (6.4-8.2)
[2021-07-09 01:52] LABS: CARBON DIOXIDE 21 MMOL/L (21-32)
[2021-07-09 01:55] LABS: ALKALINE PHOSPHATASE 80 U/L (40-136); CREATININE SERUM 1.03 MG/DL (0.60-1.30); GFR ESTIMATED 71
[2021-07-09 01:56] LABS: BUN/CREATININE RATIO 10
[2021-07-09 01:58] LABS: ALANINE AMINOTRANSFERASE 29 U/L (0-55); CREATINE KINASE 561 U/L (29-168); MAGNESIUM 1.7 MG/DL (1.6-2.4)
[2021-07-09 02:05] LABS: CREATINE KINASE MB 2.5 NG/ML (<6.6)
--- NOTE | 2021-07-09 02:17 | ED Cardiac General ---
History of Present Illness General Chief Complaint: Chest Pain Stated Complaint: HIGH BP 150/100 - BILAT TINGLE IN ARMS Nursing Triage Note: PT AMB TO ED BY POV WITH C/O CP THAT BEGAN A COUPLE OF DAYS AGO AND HIGH BP. PT REPORTS HER BP WAS 150/100 WHEN SHE TOOK IT TONIGHT AT HOME. PT HAS NOT TAKEN ANYTHING FOR THE PAIN. REPORTS R SIDED CP SHE 8/10 THAT RADIATES BETWEEN HER SHOULDER BLADES. PT ALSO REPORTS HER ARMS FEEL "TINGLY." Source: patient History of Present Illness Date Seen by Provider: Jul 09, 2021 Time Seen by Provider: 01:18 Initial Comments PT ARRIVES VIA POV FROM HOME PT STATES SHE HAS BEEN HAVING CHEST PAIN OFF AND ON WHEN SHE BREATHES FOR THE LAST COUPLE OF DAYS CHEST PAIN IS IN LEFT UPPER CHEST AND RADIATES TO MID UPPER BACK BETWEEN SHOULDER BLADES STATES SHE CHECKED HER BLOOD PRESSURE TONIGHT AT IT WAS 151/100, SO CAME TO ER STATES SHE HAS BEEN HAVING AN "ASTHMA FLARE" THE LAST COUPLE OF DAYS HAS BEEN HAVING SHORTNESS OF BREATH AND NON-PRODUCTIVE COUGH, BUT NOT NOW NO FEVER NO URI SYMPTOMS NO SWEATS NO SWELLING IN LEGS/FEET NO NAUSEA/VOMITING NO HEADACHE NO VISION CHANGES STATES BOTH OF HER ARMS AND HANDS FEEL A LITTLE TINGLY OFF AND ON, BUT NOT NOW. STATES " I GET WEAK AND SHAKEY EVERY TIME I TRY TO MOVE" PT HAS NOT USED HER ALBUTEROL RESCUE INHALER AT ANY TIME RECENTLY PT HAS BEEN USING HER ADVAIR HAS NOT TAKEN ANYTHING FOR PAIN AT ANY TIME SYMPTOMS ARE NO DIFFERENT TONIGHT IN ANY WAY PT STATES "IT'S THE SAME IT IS ANY OTHER TIME I COME OUT HERE" PT WAS SEEN HERE 04/15/21 AND 05/31/21 FOR SAME COMPLAINTS--WORK UP'S NEGATIVE FOR ACUTE CARDIAC EVENT. PT HAD REPORTED ON 04/15/21 THAT SHE HAD NOT BEEN TAKING ANY OF HER MEDICATIONS FOR A LONG TIME PT CLAIMS TODAY SHE HAS NOT MISSED ANY DOSES OF MEDICATIONS PT HAS NOT ATTEMPTED TO FOLLOW UP WITH ANYONE AFTER EITHER ONE OF THOSE VISITS. HAS NOT SOUGHT CARE FOR TONIGHT'S COMPLAINT BEFORE NOW EITHER. PT HAS HAD COVID-19 VACCINES X2 DENIES ANY SICK CONTACTS. ASA po BILINGUAL PATIENT SUPPORT CASEWORKER: No PCP: JONNY THORNE. Allergies and Home Medications Allergies Coded Allergies: No Known Drug Allergies (Unverified , 08/28/19) Patient Home Medication List Home Medication List Reviewed: Yes Albuterol Sulfate (Proair Hfa) 1 Puff Puff, 2 PUFF IH Q4H PRN for WHEEZING, (Reported) Entered as Reported by: MINDI BONILLA on 10/27/20 1243 Chlorthalidone (Chlorthalidone) 25 Mg Tablet, 25 MG PO DAILY, (Reported) Entered as Reported by: TONE SAPP on 08/28/19 1246 Dexamethasone (Decadron Intensol Oral Solution (Repackaging)) 1 Mg/1 Ml Linda, 2 TSP PO DAILY Prescribed by: KAJAL VENTURA on 10/31/20 1132 Fluticasone/Salmeterol (Advair 250-50 Diskus) Unknown Strength Blst.w.dev, 1 PUFF IH BID, (Reported) Entered as Reported by: MINDI BONILLA on 10/27/20 1243 Levocetirizine Dihydrochloride (Xyzal) 5 Mg Tablet, 5 MG PO DAILY, (Reported) Entered as Reported by: KEYONNA RESENDIZ on 12/11/20 1006 Methylprednisolone (Medrol) 4 Mg Tab.ds.pk, 4 MG PO UD Prescribed by: SAVANNA REBOLLAR on 07/09/21 0229 Metronidazole (Metronidazole) 500 Mg Tablet, 500 MG PO DAILY, (Reported) Entered as Reported by: KEYONNA RESENDIZ on 12/11/20 1006 Pantoprazole Sodium (Protonix) 40 Mg Tablet.dr, 40 MG PO DAILY Prescribed by: MARLON NAVARRO on 12/19/20 0805 Phenazopyridine HCl (Phenazopyridine HCl) 200 Mg Tablet, 200 MG PO DAILY, (Reported) Entered as Reported by: KEYONNA RESENDIZ on 12/11/20 1006 Review of Systems Review of Systems Constitutional: no symptoms reported; No chills, No diaphoresis, No dizziness, No fever EENTM: No Symptoms Reported Respiratory: See HPI, Shortness of Air Cardiovascular: See HPI, Chest Pain; Denies Edema, Denies Lightheadedness, Denies Palpitations, Denies Syncope Gastrointestinal: No Symptoms Reported Genitourinary: No Symptoms Reported Musculoskeletal: see HPI, back pain Skin: no symptoms reported Psychiatric/Neurological: See HPI, Anxiety, Tingling Endocrine: No Symptoms Reported Hematologic/Lymphatic: No Symptoms Reported Past Sxoosrh-Yagzjf-Bbsdxi Hx Patient Social History Tobacco Use?: No Use of E-Cig and/or Vaping dev: No Substance use?: No Alcohol Use?: No Pt feels they are or have been: No Immunizations Up To Date Tetanus Booster (TDap): Less than 5yrs PED Vaccines UTD: Yes Influenza Vaccine Up-to-Date: No; Not Current First/Initial COVID19 Vaccinat: OCTOBER 2020 Second COVID19 Vaccination Gerardo: [email or web address] COVID19 Vaccine Box Annealer: NASH Seasonal Allergies Seasonal Allergies: Yes Past Medical History Surgery/Hospitalization HX: HTN, ASTHMA, HYSTERECTOMY, C-SECT X5, CHOLESYSTECTOMY Surgeries: Yes (CS X5;UMBILICAL HERNIA;KNEE SX; EYE SX X2;LAVH/LIDIA/RSO) Abdominal, Section, Eye Surgery, Gallbladder, Hysterectomy, Oophorectomy, Orthopedic, Tonsillectomy Respiratory: Yes Asthma, Sleep Apnea Currently Using CPAP: Yes (Sleep Apnea ) Currently Using BIPAP: No Cardiac: Yes Hypertension Neurological: No Reproductive Disorders: Yes Female Reproductive Disorders: Menstrual Problems 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 PORT DIRECTOR History: Hysterectomy Sexually Transmitted Disease: No HIV/AIDS: No Genitourinary: No Gastrointestinal: Yes Gastroesophageal Reflux, Chronic Constipation Musculoskeletal: Yes Chronic Back Pain Endocrine: No HEENT: Yes (GLASSES, TONSILLAR HYPERTROPHY; EYE SURGERY X 2; TONSILLECTOMY) Loss of Vision: Denies Hearing Impairment: Denies Cancer: No Psychosocial: Yes Anxiety, Depression Integumentary: No Blood Disorders: Yes (AFTER C-SECTIONS ) Adverse Reaction/Blood Tranf: No (HAS HAD BLOOD WITH NO REACTION) Family Medical History No Pertinent Family Hx PAST SURGICAL HISTORY: - X 5 -KNEE SURGERY -EYE SURGERY X 2 -CHOLECYSTECOMTY 08/2019 -LAVH/LYSIS OF ADHESIONS/RIGHT SALPINGO-OOPHORECTOMY 04/2013 -TONSILLECTOMY 10/31/[address] TREVINO -UMBILICAL HERNIA REPAIR Physical Exam Vital Signs Vital Signs - First Documented 07/09/21 01:10 Temp 36.1 Pulse 86 Resp 10 B/P (MAP) 125/80 (95) Pulse Ox 99 O2 Delivery Room Air Capillary Refill : Less Than 3 Seconds Height, Weight, BMI Height: 5'3.00" Weight: 228lbs. oz. 103.037907ni; 37.00 BMI Method:Stated General Appearance: No Apparent Distress, WD/WN Neck: Normal Inspection Respiratory: Normal Breath Sounds, No Accessory Muscle Use, No Respiratory Distress, Other (LEFT UPPER CHEST TENDERNESS--PALPATION REPRODUCES PAIN ) Cardiovascular: Regular Rate, Rhythm, No Edema, No JVD, No Murmur, Normal Peripheral Pulses Gastrointestinal: Non Tender, Soft Extremity: Normal Capillary Refill, Normal Inspection, Normal Range of Motion, Non Tender, No Calf Tenderness, No Pedal Edema Neurologic/Psychiatric: Alert, Oriented x3, No Motor/Sensory Deficits, Normal Mood/Affect, steel cutter II-XII Norm as Tested Skin: Normal Color (PT IS BLACK), Warm/Dry Progress/Results/Core Measures Results/Orders Lab Results Laboratory Tests Test 07/09/21 01:20 Range/Units White Blood Count 6.3 4.3-11.0 10^3/uL Red Blood Count 4.37 3.80-5.11 10^6/uL Hemoglobin 13.0 11.5-16.0 g/dL Hematocrit 39 35-52 % Mean Corpuscular Volume 90 80-99 fL Mean Corpuscular Hemoglobin 30 25-34 pg Mean Corpuscular Hemoglobin Concent 33 32-36 g/dL Red Cell Distribution Width 12.7 10.0-14.5 % Platelet Count 297 130-400 10^3/uL Mean Platelet Volume 9.7 9.0-12.2 fL Immature Granulocyte % (Auto) 0 % Neutrophils (%) (Auto) 57 42-75 % Lymphocytes (%) (Auto) 32 12-44 % Monocytes (%) (Auto) 10 0-12 % Eosinophils (%) (Auto) 1 0-10 % Basophils (%) (Auto) 1 0-10 % Neutrophils # (Auto) 3.6 1.8-7.8 10^3/uL Lymphocytes # (Auto) 2.0 1.0-4.0 10^3/uL Monocytes # (Auto) 0.6 0.0-1.0 10^3/uL Eosinophils # (Auto) 0.1 0.0-0.3 10^3/uL Basophils # (Auto) 0.0 0.0-0.1 10^3/uL Immature Granulocyte # (Auto) 0.0 0.0-0.1 10^3/uL Prothrombin Time 13.0 12.2-14.7 SEC INR Comment 0.9 0.8-1.4 Activated Partial Thromboplast Time 29 24-35 SEC Sodium Level 140 135-145 MMOL/L Potassium Level 3.4 L 3.6-5.0 MMOL/L Chloride Level 108 H 98-107 MMOL/L Carbon Dioxide Level 21 21-32 MMOL/L Anion Gap 11 5-14 MMOL/L Blood Urea Nitrogen 10 7-18 MG/DL Creatinine 1.03 0.60-1.30 MG/DL Estimat Glomerular Filtration Rate 71 BUN/Creatinine Ratio 10 Glucose Level 107 H 70-105 MG/DL Calcium Level 8.9 8.5-10.1 MG/DL Corrected Calcium 9.0 8.5-10.1 MG/DL Magnesium Level 1.7 1.6-2.4 MG/DL Total Bilirubin 1.0 0.1-1.0 MG/DL Aspartate Amino Transf (AST/SGOT) 24 5-34 U/L Alanine Aminotransferase (ALT/SGPT) 29 0-55 U/L Alkaline Phosphatase 80 40-136 U/L Total Creatine Kinase 561 H 29-168 U/L Creatine Kinase MB 2.5 <6.6 NG/ML Myoglobin 94.7 H 10.0-92.0 NG/ML Troponin I < 0.028 <0.028 NG/ML B-Type Natriuretic Peptide < 10.0 <100.0 PG/ML Total Protein 7.4 6.4-8.2 GM/DL Albumin 3.9 3.2-4.5 GM/DL My Orders Orders - SAVANNA REBOLLAR DO Ed Iv/Invasive Line Start (07/09/21) Ekg Tracing (07/09/21) Monitor-Rhythm Ecg Trace Only (07/09/21) Chest 1 View, Ap/Pa Only (07/09/21:) BNP (07/09/21) Cbc With Automated Diff (07/09/21) Comprehensive Metabolic Panel (07/09/21) Creatine Kinase (07/09/21) Creatine Kinase Mb (07/09/21) Magnesium (07/09/21) Protime With Inr (07/09/21) Partial Thromboplastin Time (11/25/21 01:23) Troponin I (07/09/21 01:23) Aspirin Chewable Tablet (Baby Aspirin Ch (07/09/21 01:45) Ketorolac Injection (Toradol Injection) (07/09/21 01:45) Myoglobin Serum (07/09/21 01:20) Medications Given in ED Current Medications Medications Dose Ordered Sig/Gregg Route Start Time Stop Time Status Last Admin Dose Admin Aspirin 324 mg ONCE ONCE PO 07/09/21 01:45 07/09/21 01:46 DC 07/09/21 01:37 324 MG Ketorolac Tromethamine 30 mg ONCE ONCE IVP 07/09/21 01:45 07/09/21 01:46 DC 07/09/21 01:39 30 MG Vital Signs/I&O 07/09/21 01:10 Temp 36.1 Pulse 86 Resp 10 B/P (MAP) 125/80 (95) Pulse Ox 99 O2 Delivery Room Air Blood Pressure Mean: 95 Progress Progress Note : Progress Note GIVEN ASPIRIN AND TORADOL PAIN RELIEVED NO COMPLAINTS FOR REMAINDER OF ER STAY BP 120'S/70'S, HR 70-80'S O2 SAT 98-100% ON ROOM AIR UNEVENTFUL ER STAY Initial ECG Impression Date: Jul 09, 2021 Initial ECG Impression Time: 01:28 Initial ECG Rate: 79 Initial ECG Rhythm: Normal Sinus Diagnostic Imaging Comments CXR--NO ACUTE PROCESS, PENDING RADIOLOGIST REVIEW Reviewed: Reviewed by Me Departure Impression Primary Impression: Chest wall pain Disposition: 01 HOME, SELF-CARE Condition: Improved Departure-Patient Inst. Decision time for Depature: 02:25 Referrals: [facility] (PCP/Family) Primary Care Physician Patient Instructions: Costochondritis (DC) Add. Discharge Instructions: CONTINUE YOUR MEDICATIONS PRESCRIBED TAKE ASPIRIN 81 MG DAILY EVERY DAY FOLLOW UP WITH [facility] NEXT WEEK FOR FURTHER CARE, RETURN TO ER IF WORSE All discharge instructions reviewed with patient and/or family. Voiced understanding. Scripts Methylprednisolone (Medrol) 4 Mg Tab.ds.pk 4 MG PO UD for 6 Days, #21 PKG PER DOSE PACK INSTRUCTIONS Prov: SAVANNA REBOLLAR DO 07/09/21 SAVANNA REBOLLAR DO Jul 09, 2021 02:17
[2021-07-09] MEDS ORDERED: METH4TAB PO (02:29)
[2021-07-09 02:34] VITALS: BP 132/89
--- NOTE | 2021-07-09 03:52 | Diagnostic Imaging Report ---
INDICATION: Chest pain, hypertension x2 days.. TECHNIQUE: Single view chest 2:16 AM. CORRELATION STUDY: 04/15/2021 FINDINGS: The heart size, mediastinal configuration and pulmonary vascularity are within normal limits. The lungs are clear with no consolidating infiltrate. There is no significant effusion or pneumothorax. IMPRESSION: 1. Negative appearing portable chest. Dictated by: Dictated on workstation # [id number]
== END 2021-07-09 02:37 | disposition home or self-care (01) ==
LOC: EDUNIT# 01:00 → ER 01:02
DX: R07.89 Other chest pain (principal); J45.909 Unspecified asthma, uncomplicated; G47.30 Sleep apnea, unspecified; I10 Essential (primary) hypertension; K21.9 Gastro-esophageal reflux disease without esophagitis; Z79.899 Other long term (current) drug therapy
CPT/HCPCS: 36415; 71045; 80053; 82550; 82553; 83735; 83874; 83880; 84484; 85025; 85610; 85730; 93005; 93041

== ENCOUNTER → 2021-07-29 | Outpatient (CLI) | payer MEDICAID ==
[~2021-07-29] MED LIST changes: +METH4TAB PO
== END ==
LOC: CARD 13:30
PROVIDERS: ATTEND Physician Assistant
DX: I51.7 Cardiomegaly (principal)
CPT/HCPCS: 93306

== ENCOUNTER → 2021-08-17 | Outpatient (CLI) | payer MEDICAID ==
[~2021-08-17] MED LIST changes: +CATHETER FLUSH 10 ML SYR IV PRN; +HOLD METFORMIN - RECEIVED CONTRAST 20 ML VIAL IV SCH; +IOHEXOL 350 MG/ML 100 ML (OMNIPAQUE 350) VIAL IV ONE; -MMT17NA; +MOME17SP4; +NS 100 ML (IVPB) BAG IV ONE
--- NOTE | 2021-08-17 09:27 | Diagnostic Imaging Report ---
PROCEDURE: CT neck soft tissue with contrast. TECHNIQUE: Multiple contiguous axial images were obtained through the neck after the administration of contrast. Auto Exposure Controls were utilized during the CT exam to meet ALARA standards for radiation dose reduction. INDICATION: Sore throat. Difficulty swallowing. Evaluate for mass. COMPARISON: 10/15/2020. Findings: The posterior nasopharynx and oropharynx demonstrate appropriate symmetry. There is no displacement of the parapharyngeal fat planes. There is no abnormal process evident within the prevertebral or retropharyngeal space. There is no evidence of abnormal thickening of the epiglottis or aryepiglottic folds. The vocal folds appear symmetric. The parotid and submandibular glands are unremarkable. Stable nodule in the right lobe of the thyroid measuring 1.0 cm. No pathologically enlarged cervical lymph nodes are evident. No focal inflammatory changes are demonstrated. No soft tissue mass or fluid collection demonstrated. The vascular structures the neck demonstrate no evidence of high-grade stenosis on this nondedicated exam. The visualized lung apices are clear. The visualized intracranial contents demonstrate no evidence of pathologic intracranial enhancement or intracranial mass effect. Visualized orbital contents are unremarkable. Mild mucosal thickening is seen in the maxillary sinuses. The mastoids and middle ears are clear. No acute osseous abnormality in the cervical spine. Impression: 1. Appropriate symmetry of the aerodigestive tract. No evidence of mass or fluid collection in the aerodigestive tract. No airway compromise. 2. No evidence of pathologic adenopathy. 3. Stable nodule in the right lobe of the thyroid measuring 1.0 cm. This does not meet significance based on size criteria. Dictated by: Dictated on workstation # [id number]
== END ==
LOC: RAD 08:15
PROVIDERS: ATTEND Otolaryngology Otolaryngology/Facial Plastic Surgery
DX: E04.1 Nontoxic single thyroid nodule (principal)
CPT/HCPCS: 70491

== ENCOUNTER 2021-09-04 05:27 | Outpatient (RCR) | payer MEDICAID ==
[~2021-09-04] VITALS: Ht 160 cm; Wt 98.4 kg
[~2021-09-04 05:27] MED LIST changes: -CATHETER FLUSH 10 ML SYR IV PRN; -HOLD METFORMIN - RECEIVED CONTRAST 20 ML VIAL IV SCH; +HYDR12.56 PO; -IOHEXOL 350 MG/ML 100 ML (OMNIPAQUE 350) VIAL IV ONE; +LOSA25TA41 PO; -NS 100 ML (IVPB) BAG IV ONE
[2021-09-08] MEDS ORDERED: PANT40TA2 PO (12:08)
== END 2021-09-07 09:58 | disposition home or self-care (01) ==
LOC: PREOP 05:27
PROVIDERS: ATTEND Surgery
DX: Z01.812 Encounter for preprocedural laboratory examination (principal); R10.9 Unspecified abdominal pain; R13.10 Dysphagia, unspecified; Z20.822 Contact with and (suspected) exposure to COVID-19
CPT/HCPCS: 87635

== ENCOUNTER 2021-09-08 09:15 | Day surgery (SDC) | payer MEDICAID ==
[~2021-09-08] VITALS: Ht 167.7 cm; Wt 98.4 kg
[2021-09-08] MEDS ORDERED: LACTATED RINGERS 1,000 ML IV ONE (09:30)
[2021-09-08] MEDS ORDERED: LACTATED RINGERS 1,000 ML IV STA (09:34)
--- NOTE | 2021-09-08 09:38 | Progress Note-Pre Operative ---
Pre-Operative Progress Note H&P Reviewed The H&P was reviewed, patient examined and no changes noted. Date Seen by Provider: Sep 08, 2021 Time Seen by Provider: 09:38 Date H&P Reviewed: Sep 08, 2021 Time H&P Reviewed: 09:38 Pre-Operative Diagnosis: left sided abdominal pain, esophagitis MARLON NAVARRO DO Sep 08, 2021 09:38
[2021-09-08] MEDS ORDERED: HURRICAINE EXT TUBE (BENZOCAINE) XX PRN (09:45)
[2021-09-08 09:52] VITALS: BP 125/91
[2021-09-08] MEDS ORDERED: PROPOFOL INJECTION 50 ML IV ONE (11:26)
[2021-09-08] MEDS ORDERED: MIDAZOLAM 2 MG/2 ML (VERSED) VIAL ONE (11:26)
[2021-09-08 12:00] VITALS: BP 125/81
[2021-09-08 12:05] VITALS: BP 115/70
--- NOTE | 2021-09-08 12:05 | Anesthesia-General Post-Op ---
MAC Patient Condition Mental Status/LOC: Same as Preop Cardiovascular: Satisfactory Nausea/Vomiting: Absent Respiratory: Satisfactory Pain: Controlled Complications: Absent Post Op Complications Complications None Follow Up Care/Instructions Patient Instructions None needed. Anesthesiology Discharge Order Discharge Order Patient is doing well, no complaints, stable vital signs, no apparent adverse anesthesia problems. No complications reported per nursing. GARCIA NELSON CRNA Sep 08, 2021 12:05
--- NOTE | 2021-09-08 12:07 | Progress Note-Post Operative ---
Post-Operative Progess Note Surgeon (s)/Senior Warehouse Clerk (s) Surgeon MARLON NAVARRO DO Senior Warehouse Clerk: N/A Pre-Operative Diagnosis left sided abdominal pain, esophagitis Post-Operative Diagnosis normal egd, mucosal change ileocecal valve Procedure & Operative Findings Date of Procedure 09/08/21 Procedure Performed/Findings EGD with biopsies in antrum and GE junction. Colonoscopy with cold biopsy of ileocecal valve. Anesthesia Type per MANUAL WRITER Estimated Blood Loss Estimated blood loss (mL): none Specimens/Packing Specimens Removed Antrum, GE junction, ileocecal valve MARLON NAVARRO DO Sep 08, 2021 12:07
[2021-09-08] MEDS ORDERED: PANT40TA2 PO (12:08)
--- NOTE | 2021-09-08 12:09 | Discharge Inst-Simple/Standard ---
Discharge Inst-Standard Patient Instructions/Follow Up Plan of Care/Instructions/FU: 2 weeks Pilar Activity as Tolerated: Yes Discharge Diet: Regular Diet MARLON NAVARRO DO Sep 08, 2021 12:09
[2021-09-08 12:10] VITALS: BP 121/77
[2021-09-08 12:15] VITALS: BP 121/77
[2021-09-08 12:51] VITALS: BP 115/75
--- NOTE | 2021-09-08 17:48 | OPERATIVE REPORT ---
DATE OF SERVICE: 09/08/2021 PREOPERATIVE DIAGNOSES: Left-sided abdominal pain and esophagitis. PROCEDURE: EGD with biopsies, colonoscopy with cold biopsy of the ileocecal valve. POSTOPERATIVE DIAGNOSES: Normal EGD and mucosal change of the ileocecal valve. SURGEON: Marlon Quezada DO ANESTHESIA: Per FRONT SIGHT ATTACHER. ESTIMATED BLOOD LOSS: None. COMPLICATIONS: None. INDICATIONS: The patient is a 46-year-old female who has been having left-sided abdominal pain and symptoms consistent with esophagitis. She has a history of esophagitis as well. She understands risks and benefits of procedure and wishes to proceed. Consent was signed in the chart. DESCRIPTION OF PROCEDURE: The patient was taken to the endoscopy suite, placed in left lateral recumbent position. Timeout was performed. Scope was inserted in mouth, down the esophagus, stomach and into the duodenum. There were no polyps, masses or ulcerations within the duodenum. Scope was slowly retracted back into the stomach where it was further insufflated. Biopsy of the antrum was obtained. No polyps, masses or ulcerations. Scope was retroflexed noting no other pathology. Scope was returned to its normal position, slowly withdrawn to distal esophagus. No polyps, masses or ulcerations. Biopsy of the GE junction was obtained. Maybe a questionable reflux esophagitis. Scope was slowly retracted back to completely remove noting no other pathology. Digital rectal exam was performed. No palpable polyps, masses or ulcerations. Scope was inserted in the rectum and advanced all the way to cecum with minimal difficulty. Prep was adequate. Slight mucosal change of the ileum, so a cold biopsy was obtained. Scope was then slowly retracted back. No polyps, masses or ulcerations within the cecum, ascending, transverse, descending and sigmoid colon. Once in the rectum, scope was retroflexed noting no other pathology. Scope was returned to its normal position, slowly withdrawn until completely removed. The patient tolerated the procedure well without any complications. She was taken to recovery room in stable condition. RECOMMENDATIONS: The patient will be started on Protonix 40 mg daily to see if this causes any improvement of her symptoms. Her colon was normal, which would recommend repeat colonoscopy in 10 years unless family history of colon cancer, which would then be 5 years. Any issues before that be seen at that time. If no improvement, we would consider further imaging such as CT scan of the abdomen and pelvis. Job ID: [id number] DocumentID: [id number] Dictated Date: 09/08/2021 12:13:01 Expeditionary Fighting Vehicle Crewman Date: 09/08/2021 17:47:20 Dictated By: MARLON QUEZADA DO
== END 2021-09-08 13:00 | disposition home or self-care (01) ==
LOC: ENDO 09:15
PROVIDERS: ATTEND Surgery
DX: K20.90 Esophagitis, unspecified without bleeding (principal); K52.9 Noninfective gastroenteritis and colitis, unspecified; I10 Essential (primary) hypertension; J45.909 Unspecified asthma, uncomplicated; G47.33 Obstructive sleep apnea (adult) (pediatric); E66.9 Obesity, unspecified; Z99.89 Dependence on other enabling machines and devices; Z68.38 Body mass index [BMI] 38.0-38.9, adult; Z79.899 Other long term (current) drug therapy
CPT/HCPCS: 88305

== ENCOUNTER → 2021-09-23 | Outpatient (CLI) | payer MEDICAID ==
[~2021-09-23] VITALS: Ht 160 cm; Wt 96.0 kg
[~2021-09-23] MED LIST changes: +CATHETER FLUSH 10 ML SYR IV PRN
[2021-09-23 09:08] VITALS: BP 120/83
--- NOTE | 2021-09-23 12:43 | Cardiology Stress Test Report ---
Stress Test Report Date of Procedure/Referring: Date of Procedure: Sep 23, 2021 Holli Patel Admitting Physician [facility] Indications: CP Baseline Heart Rate: 68 Baseline Blood Pressure: Blood Pressure Systolic: 120 Blood Pressure Diastolic: 83 Vital Signs Date Time Temp Pulse Resp B/P (MAP) Pulse Ox O2 Delivery O2 Flow Rate FiO2 09/23/21 09:08 68 120/83 (95) Baseline Vital Signs Vital Signs Date Time Temp Pulse Resp B/P (MAP) Pulse Ox O2 Delivery O2 Flow Rate FiO2 09/23/21 09:08 68 120/83 (95) Baseline EKG: Baseline EKG: NSR Summary: After explaining the procedure and details to the patient, she signed the consent and was brought to the stress nuclear laboratory. Patient exercised on standard Sergey protocol, EKG, heart rate and blood pressure were monitored continuously, resting and stress doses of radio tracer were injected, imaging was acquired and reviewed in the short axis, horizontal long axis and vertical long axis views Patient was able to exercise for a total of 7 minutes on Sergey protocol, METs 8.5 Maximum heart rate 157 Maximum blood pressure 169/89 Stress EKG, Minimal nondiagnostic changes Recovery EKG, Return to baseline TID: 0.76 SSS: 4 SDS: 2 EF: 66 Conclusion: 1. Fair exercise tolerance for a total of 7 minutes on standard Sergey protocol, 8.5 METS achieving 89% of maximal expected heart rate 2. Appropriate heart rate and blood pressure response to exercise return to baseline during recovery 3. Nondiagnostic EKG changes with exercise return to baseline during recovery 4. Breast attenuation with mild decrease uptake at the apex, the stress images are significantly better than the resting images. There is no significant ischemia or infarction noted. 5. Normal left ventricular size, EF 66% ALESSANDRA SMITH MD Sep 23, 2021 12:42
== END ==
LOC: CARD 07:30
PROVIDERS: ATTEND Physician Assistant
DX: R07.9 Chest pain, unspecified (principal)
CPT/HCPCS: 78452; 93017; A9502

== ENCOUNTER 2022-02-08 11:29 | Emergency (ER) | payer MEDICAID ==
[~2022-02-08] VITALS: Ht 160 cm; Wt 100.7 kg
[~2022-02-08 11:29] MED LIST changes: -CATHETER FLUSH 10 ML SYR IV PRN
--- NOTE | 2022-02-08 13:07 | Diagnostic Imaging Report ---
INDICATION: Hypertension. COMPARISON: 07/09/2021. FINDINGS: The lungs appear clear without focal airspace opacities or consolidation. There are no findings of an effusion. There is no evidence of a pneumothorax. Heart size and mediastinal contours appear appropriate. Pulmonary vascularity appears within normal limits. There is no acute or suspicious osseous abnormality demonstrated. IMPRESSION: No radiographic evidence of an acute cardiopulmonary process. Dictated by: Dictated on workstation # [id number]
[2022-02-08 13:10] LABS: BASOPHILS % (AUTO) 0 % (0-10); EOSINOPHILS # (AUTO) 0.1 10^3/uL (0.0-0.3); EOSINOPHILS % (AUTO) 1 % (0-10); HEMATOCRIT 42 % (35-52); HEMOGLOBIN 13.9 g/dL (11.5-16.0); LYMPHOCYTES # (AUTO) 1.9 10^3/uL (1.0-4.0); LYMPHOCYTES % (AUTO) 31 % (12-44); MEAN CORPUSCULAR HEMOGLOBIN 30 pg (25-34); MEAN CORPUSCULAR HGB CONC 33 g/dL (32-36); MEAN CORPUSCULAR VOLUME 91 fL (80-99); MEAN PLATELET VOLUME 9.8 fL (9.0-12.2); MONOCYTES # (AUTO) 0.7 10^3/uL (0.0-1.0); MONOCYTES % (AUTO) 11 % (0-12); NEUTROPHILS # (AUTO) 3.4 10^3/uL (1.8-7.8); NEUTROPHILS % (AUTO) 56 % (42-75); PLATELET COUNT 239 10^3/uL (130-400)
[2022-02-08 13:21] LABS: BILIRUBIN,URINE NEGATIVE (NEGATIVE); CLARITY,URINE CLEAR; COLOR,URINE ORANGE; GLUCOSE, URINE (UA) TRACE (NEGATIVE); KETONES,URINE NEGATIVE (NEGATIVE); LEUKOCYTE ESTERASE ,URINE NEGATIVE (NEGATIVE); NITRITE,URINE POSITIVE (NEGATIVE); PROTEIN,URINE 1+ (NEGATIVE)
[2022-02-08 13:26] LABS: CHLORIDE 107 MMOL/L (98-107); POTASSIUM 3.7 MMOL/L (3.6-5.0); SODIUM 139 MMOL/L (135-145)
[2022-02-08 13:27] LABS: CALCIUM 9.5 MG/DL (8.5-10.1)
[2022-02-08 13:28] LABS: GLUCOSE 97 MG/DL (70-105); TOTAL PROTEIN 7.9 GM/DL (6.4-8.2)
[2022-02-08 13:29] LABS: CARBON DIOXIDE 23 MMOL/L (21-32)
[2022-02-08 13:30] LABS: BILIRUBIN,TOTAL 1.2 MG/DL (0.1-1.0)
[2022-02-08 13:32] LABS: ALKALINE PHOSPHATASE 90 U/L (40-136); CREATININE SERUM 0.92 MG/DL (0.60-1.30); GFR ESTIMATED 78
[2022-02-08 13:33] LABS: BUN/CREATININE RATIO 10
[2022-02-08 13:35] LABS: ALANINE AMINOTRANSFERASE 29 U/L (0-55); MAGNESIUM 1.8 MG/DL (1.6-2.4)
[2022-02-08 13:38] LABS: BACTERIA,URINE NEGATIVE /HPF; SQUAMOUS EPITHELIAL CELL,UR 0-2 /HPF
[2022-02-08] MEDS ORDERED: HYDR-3922 PO (14:12)
--- NOTE | 2022-02-08 14:12 | ED Cardiac General ---
History of Present Illness General Chief Complaint: Cardiac/General Problems Stated Complaint: HIGH BP Nursing Triage Note: High BP for approx 1 wk w/ PEACE and tingling to the face. Also reports balances issues. History of Present Illness ASA po C T TECH: No Allergies and Home Medications Allergies Coded Allergies: No Known Drug Allergies (Unverified , 08/28/19) Patient Home Medication List Albuterol Sulfate (Proair Hfa) 1 Puff Puff, 2 PUFF IH Q4H PRN for WHEEZING, (Reported) Entered as Reported by: MINDI BONILLA on 10/27/20 1243 Fluticasone/Salmeterol (Advair 250-50 Diskus) Unknown Strength Blst.w.dev, 1 PUFF IH BID, (Reported) Entered as Reported by: MINDI BONILLA on 10/27/20 1243 Hydrochlorothiazide (Hydrochlorothiazide) 12.5 Mg Tablet, 12.5 MG PO DAILY, (Reported) Entered as Reported by: WIN PRITCHARD on 08/31/21 1053 Losartan Potassium (Losartan Potassium) 25 Mg Tablet, 25 MG PO DAILY, (Reported) Entered as Reported by: WIN PRITCHARD on 08/31/21 1053 Pantoprazole Sodium (Protonix) 40 Mg Tablet.dr, 40 MG PO DAILY Prescribed by: MARLON NAVARRO on 09/08/21 1208 Past Veqefoq-Kmejpi-Mxjdfh Hx Patient Social History Tobacco Use?: No Substance use?: No Alcohol Use?: No Pt feels they are or have been: No Immunizations Up To Date Tetanus Booster (TDap): Less than 5yrs PED Vaccines UTD: Yes First/Initial COVID19 Vaccinat: [id number] Second COVID19 Vaccination Gerardo: 2020 COVID19 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[employer] Seasonal Allergies Seasonal Allergies: Yes Past Medical History Surgery/Hospitalization HX: hyst, t and a, asthma Surgeries: Yes (CS X5;UMBILICAL HERNIA;KNEE SX; EYE SX X2;LAVH/LIDIA/RSO) Abdominal, Section, Eye Surgery, Gallbladder, Hysterectomy, Oophorectomy, Orthopedic, Tonsillectomy Respiratory: Yes Asthma, Sleep Apnea Currently Using CPAP: Yes (Sleep Apnea ) Currently Using BIPAP: No Cardiac: Yes Hypertension Neurological: No Reproductive Disorders: Yes Female Reproductive Disorders: 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 Sexually Transmitted Disease: No HIV/AIDS: No Genitourinary: No Gastrointestinal: Yes Gastroesophageal Reflux, Chronic Constipation Musculoskeletal: Yes Chronic Back Pain Endocrine: No HEENT: Yes (GLASSES, TONSILLAR HYPERTROPHY; EYE SURGERY X 2; TONSILLECTOMY) Loss of Vision: Denies Hearing Impairment: Denies Cancer: No Psychosocial: Yes Anxiety, Depression Integumentary: No Blood Disorders: Yes (AFTER C-SECTIONS ) Adverse Reaction/Blood Tranf: No (HAS HAD BLOOD WITH NO REACTION) Family Medical History No Pertinent Family Hx PAST SURGICAL HISTORY: - X 5 -KNEE SURGERY -EYE SURGERY X 2 -CHOLECYSTECOMTY 08/2019 -LAVH/LYSIS OF ADHESIONS/RIGHT SALPINGO-OOPHORECTOMY 04/2013 -TONSILLECTOMY 10/31/[address] TREVINO -UMBILICAL HERNIA REPAIR Physical Exam Vital Signs Vital Signs - First Documented 02/08/22 12:43 Temp 37.0 Pulse 80 Resp 18 B/P (MAP) 164/98 (120) Pulse Ox 97 Capillary Refill : Less Than 3 Seconds Height, Weight, BMI Height: 5'3.00" Weight: 228lbs. oz. 103.061585xd; 39.00 BMI Method:Stated Progress/Results/Core Measures Results/Orders Lab Results Laboratory Tests Test 02/08/22 12:55 02/08/22 13:00 Range/Units White Blood Count 6.0 4.3-11.0 10^3/uL Red Blood Count 4.60 3.80-5.11 10^6/uL Hemoglobin 13.9 11.5-16.0 g/dL Hematocrit 42 35-52 % Mean Corpuscular Volume 91 80-99 fL Mean Corpuscular Hemoglobin 30 25-34 pg Mean Corpuscular Hemoglobin Concent 33 32-36 g/dL Red Cell Distribution Width 12.4 10.0-14.5 % Platelet Count 239 130-400 10^3/uL Mean Platelet Volume 9.8 9.0-12.2 fL Immature Granulocyte % (Auto) 0 % Neutrophils (%) (Auto) 56 42-75 % Lymphocytes (%) (Auto) 31 12-44 % Monocytes (%) (Auto) 11 0-12 % Eosinophils (%) (Auto) 1 0-10 % Basophils (%) (Auto) 0 0-10 % Neutrophils # (Auto) 3.4 1.8-7.8 10^3/uL Lymphocytes # (Auto) 1.9 1.0-4.0 10^3/uL Monocytes # (Auto) 0.7 0.0-1.0 10^3/uL Eosinophils # (Auto) 0.1 0.0-0.3 10^3/uL Basophils # (Auto) 0.0 0.0-0.1 10^3/uL Immature Granulocyte # (Auto) 0.0 0.0-0.1 10^3/uL Sodium Level 139 135-145 MMOL/L Potassium Level 3.7 3.6-5.0 MMOL/L Chloride Level 107 98-107 MMOL/L Carbon Dioxide Level 23 21-32 MMOL/L Anion Gap 9 5-14 MMOL/L Blood Urea Nitrogen 9 7-18 MG/DL Creatinine 0.92 0.60-1.30 MG/DL Estimat Glomerular Filtration Rate 78 BUN/Creatinine Ratio 10 Glucose Level 97 70-105 MG/DL Calcium Level 9.5 8.5-10.1 MG/DL Corrected Calcium 9.5 8.5-10.1 MG/DL Magnesium Level 1.8 1.6-2.4 MG/DL Total Bilirubin 1.2 H 0.1-1.0 MG/DL Aspartate Amino Transf (AST/SGOT) 22 5-34 U/L Alanine Aminotransferase (ALT/SGPT) 29 0-55 U/L Alkaline Phosphatase 90 40-136 U/L Troponin I < 0.028 <0.028 NG/ML B-Type Natriuretic Peptide < 10.0 <100.0 PG/ML Total Protein 7.9 6.4-8.2 GM/DL Albumin 4.0 3.2-4.5 GM/DL Urine Color ORANGE Urine Clarity CLEAR Urine pH 6.0 5-9 Urine Specific [place] 1.015 L 1.016-1.022 Urine Protein 1+ H NEGATIVE Urine Glucose (UA) TRACE H NEGATIVE Urine Ketones NEGATIVE NEGATIVE Urine Nitrite POSITIVE H NEGATIVE Urine Bilirubin NEGATIVE NEGATIVE Urine Urobilinogen 4.0 < = 1.0 MG/DL Urine Leukocyte Esterase NEGATIVE NEGATIVE Urine RBC (Auto) NEGATIVE NEGATIVE Urine RBC NONE /HPF Urine WBC NONE /HPF Urine Squamous Epithelial Cells 0-2 /HPF Urine Crystals NONE /LPF Urine Bacteria NEGATIVE /HPF Urine Casts NONE /LPF Urine Mucus NEGATIVE /LPF Urine Culture Indicated YES My Orders Orders - SAVANNA REBOLLAR DO Ed Iv/Invasive Line Start (02/08/22 12:51) Urine Bedside (02/08/22 12:51) Ekg Tracing (02/08/22 12:51) Monitor-Rhythm Ecg Trace Only (02/08/22 12:51) Chest 1 View, Ap/Pa Only (02/08/22 12:51) Bnp Roseline (02/08/22 12:51) Cbc With Automated Diff (02/08/22 12:51) Comprehensive Metabolic Panel (02/08/22 12:51) Magnesium (02/08/22 12:51) Ua Culture If Indicated (02/08/22 12:51) Troponin I Roseline (02/08/22 12:51) Urine Culture (02/08/22 13:00) Vital Signs/I&O 02/08/22 12:43 Temp 37.0 Pulse 80 Resp 18 B/P (MAP) 164/98 (120) Pulse Ox 97 Blood Pressure Mean: 120 Departure Impression Primary Impression: HTN (hypertension) Additional Impression: UTI (urinary tract infection) Disposition: 01 HOME, SELF-CARE Condition: Stable Departure-Patient Inst. Decision time for Depature: 14:10 Referrals: [facility] (PCP/Family) Primary Care Physician Patient Instructions: DASH Diet, High Blood Pressure ED, Urinary Tract Infection, Adult ED Add. Discharge Instructions: CONTINUE YOUR UTI MEDICATIONS PRESCRIBED INCREASE YOUR LOSARTAN TO 50 MG DAILY FOLLOW UP WITH [facility] THIS WEEK FOR FURTHER CARE--CALL TODAY TO SCHEDULE AN APPOINTMENT All discharge instructions reviewed with patient and/or family. Voiced understanding. Scripts Hydralazine HCl (Hydralazine HCl) 10 Mg Tablet 10 MG PO TID PRN for BLOOD PRESSURE, #15 TAB TAKE NEEDED THREE TIMES A DAY FOR SYSTOLIC BP > 160 OR DIASTOLIC BP > 100 Prov: SAVANNA REBOLLAR DO 02/08/22 SAVANNA REBOLLAR DO Feb 08, 2022 14:12
[2022-02-08 14:19] VITALS: BP 149/99
== END 2022-02-08 14:18 | disposition home or self-care (01) ==
LOC: EDUNIT# 11:29 → ER 11:30
DX: I10 Essential (primary) hypertension (principal); N39.0 Urinary tract infection, site not specified; G47.30 Sleep apnea, unspecified; Z99.89 Dependence on other enabling machines and devices
CPT/HCPCS: 36415; 71045; 80053; 81000; 83735; 83880; 84484; 85025; 87088; 93005; 93041

== ENCOUNTER → 2022-05-20 | Outpatient (CLI) | payer MEDICAID ==
[~2022-05-20] MED LIST changes: +HYDR-3922 PO; +RT-ALBUTEROL SULF 2.5 MG/3 ML PRE-MIX VIAL INH ONE
== END ==
LOC: RT 09:15
PROVIDERS: ATTEND Nurse Practitioner Family
DX: J45.40 Moderate persistent asthma, uncomplicated (principal)
CPT/HCPCS: 94060; 94726; 94729

== ENCOUNTER 2022-05-21 10:22 | Emergency (ER) | payer MEDICAID ==
[~2022-05-21] VITALS: Ht 160 cm; Wt 104.3 kg
[~2022-05-21 10:22] MED LIST changes: -RT-ALBUTEROL SULF 2.5 MG/3 ML PRE-MIX VIAL INH ONE
[2022-05-21 11:15] LABS: BASOPHILS # (AUTO) 0.1 10^3/uL (0.0-0.1); BASOPHILS % (AUTO) 1 % (0-10); EOSINOPHILS # (AUTO) 0.1 10^3/uL (0.0-0.3); EOSINOPHILS % (AUTO) 1 % (0-10); HEMATOCRIT 39 % (35-52); HEMOGLOBIN 13.2 g/dL (11.5-16.0); LYMPHOCYTES # (AUTO) 2.4 10^3/uL (1.0-4.0); LYMPHOCYTES % (AUTO) 35 % (12-44); MEAN CORPUSCULAR HEMOGLOBIN 31 pg (25-34); MEAN CORPUSCULAR HGB CONC 34 g/dL (32-36); MEAN CORPUSCULAR VOLUME 91 fL (80-99); MEAN PLATELET VOLUME 9.4 fL (9.0-12.2); MONOCYTES # (AUTO) 0.7 10^3/uL (0.0-1.0); MONOCYTES % (AUTO) 10 % (0-12); NEUTROPHILS # (AUTO) 3.6 10^3/uL (1.8-7.8); NEUTROPHILS % (AUTO) 53 % (42-75); PLATELET COUNT 255 10^3/uL (130-400); WHITE BLOOD COUNT 6.9 10^3/uL (4.3-11.0)
--- NOTE | 2022-05-21 11:15 | ED Respiratory ---
General Chief Complaint: Respiratory Problems Stated Complaint: CHEST PAIN Source: patient Exam Limitations: no limitations History of Present Illness Date Seen by Provider: May 21, 2022 Time Seen by Provider: 11:13 Initial Comments To ER by private vehicle from home with reports of sharp chest pain between both of her shoulder blades when taking a deep breath. She also has a productive cough. She has a history of asthma. She started earlier this week with an asthma exacerbation went to [facility] got prednisone. The asthma exacerbation seems better but she now has this sharp pain which was concerning to her. No cardiac history. No shortness of breath. No fever no chills. Timing/Duration: yesterday Severity: moderate Associated Symptoms: cough Allergies and Home Medications Allergies Coded Allergies: No Known Drug Allergies (Unverified , 08/28/19) Patient Home Medication List Home Medication List Reviewed: Yes Albuterol Sulfate (Proair Hfa) 1 Puff Puff, 2 PUFF IH Q4H PRN for WHEEZING, (Reported) Entered as Reported by: MINDI BONILLA on 10/27/20 1243 Fluticasone/Salmeterol (Advair 250-50 Diskus) Unknown Strength Blst.w.dev, 1 PUFF IH BID, (Reported) Entered as Reported by: MINDI BONILLA on 10/27/20 1243 Hydralazine HCl (Hydralazine HCl) 10 Mg Tablet, 10 MG PO TID PRN for BLOOD PRESSURE Prescribed by: SAVANNA REBOLLAR on 02/08/22 1412 Hydrochlorothiazide (Hydrochlorothiazide) 12.5 Mg Tablet, 12.5 MG PO DAILY, (Reported) Entered as Reported by: WIN PRITCHARD on 08/31/21 1053 Losartan Potassium (Losartan Potassium) 25 Mg Tablet, 25 MG PO DAILY, (Reported) Entered as Reported by: WIN PRITCHARD on 08/31/21 1053 Pantoprazole Sodium (Protonix) 40 Mg Tablet.dr, 40 MG PO DAILY Prescribed by: MARLON NAVARRO on 09/08/21 1208 Review of Systems Review of Systems Constitutional: see HPI EENTM: see HPI Respiratory: see HPI, cough Cardiovascular: no symptoms reported Genitourinary: no symptoms reported Musculoskeletal: no symptoms reported Skin: no symptoms reported Psychiatric/Neurological: No Symptoms Reported Hematologic/Lymphatic: No Symptoms Reported Immunological/Allergic: no symptoms reported Past Kttmpei-Epephl-Gcarhj Hx Patient Social History Tobacco Use?: No Smoking Status: Never a Smoker Smokeless Tobacco Frequency: Never a User Use of E-Cig and/or Vaping dev: No Use of E-Cig and/or Vaping Gino: Never a User Substance use?: No Alcohol Use?: Yes Alcohol Frequency: Rarely Pt feels they are or have been: No Immunizations Up To Date Tetanus Booster (TDap): Less than 5yrs PED Vaccines UTD: Yes First/Initial COVID19 Vaccinat: [id number] Second COVID19 Vaccination Gerardo: 2020 COVID19 Vaccine 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 Digger: NoquoA Seasonal Allergies Seasonal Allergies: Yes Past Medical History Surgery/Hospitalization HX: hyst, t and a, asthma Surgeries: Yes (CS X5;UMBILICAL HERNIA;KNEE SX; EYE SX X2;LAVH/LIDIA/RSO) Abdominal, Section, Eye Surgery, Gallbladder, Hysterectomy, Oophorectomy, Orthopedic, Tonsillectomy Respiratory: Yes Asthma, Sleep Apnea Currently Using CPAP: Yes (Sleep Apnea ) Currently Using BIPAP: No Cardiac: Yes Hypertension Neurological: No Reproductive Disorders: Yes Female Reproductive Disorders: Menstrual 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 Sexually Transmitted Disease: No HIV/AIDS: No Genitourinary: No Gastrointestinal: Yes Gastroesophageal Reflux, Chronic Constipation Musculoskeletal: Yes Chronic Back Pain Endocrine: No HEENT: Yes (GLASSES, TONSILLAR HYPERTROPHY; EYE SURGERY X 2; TONSILLECTOMY) Loss of Vision: Denies Hearing Impairment: Denies Cancer: No Psychosocial: Yes Anxiety, Depression Integumentary: No 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 TREVINO -UMBILICAL HERNIA REPAIR Physical Exam Vital Signs - First Documented 05/21/22 10:24 O2 Delivery Room Air Capillary Refill : Height: 5'3.00" Weight: 228lbs. oz. 103.724800ar; 39.00 BMI Method:Stated General Appearance: WD/WN, no apparent distress, other (Alert and oriented no distress respiratory rate is normal at 18 nonlabored oxygen saturation 98% room air heart rate 90.) Eyes: Bilateral Eye Normal Inspection, Bilateral Eye PERRL, Bilateral Eye EOMI HEENT: PERRL/EOMI, normal ENT inspection Respiratory: normal breath sounds, no respiratory distress, no accessory muscle use Cardiovascular: regular rate, rhythm, no murmur Gastrointestinal: normal bowel sounds, non tender, soft Neurologic/Psychiatric: alert, normal mood/affect, oriented x 3 Skin: normal color, warm/dry Progress/Results/Core Measures Suspected Sepsis SIRS Temperature: Pulse: Respiratory Rate: Laboratory Tests 05/21/22 11:06: Blood Pressure / Mean: Laboratory Tests 05/21/22 11:06: Results/Orders Lab Results Laboratory Tests Test 05/21/22 11:06 Range/Units My Orders Orders - ALMA ACOSTA APRN Chest Pa/Lat (2 View) (05/21/22 11:07) Cbc With Automated Diff (05/21/22 11:07) Comprehensive Metabolic Panel (05/21/22 11:07) Ed Iv/Invasive Line Start (05/21/22 11:07) Ekg Tracing (05/21/22 11:07) Troponin I Roseline (05/21/22 11:07) Vital Signs/I&O 05/21/22 10:24 O2 Delivery Room Air Capillary Refill : Departure Communication (Admissions) EKG shows sinus rhythm at 86 normal intervals no ectopy no ST segment change Impression Primary Impression: Pleuritic chest pain Disposition: 01 HOME, SELF-CARE Condition: Stable Departure-Patient Inst. Decision time for Depature: 11:14 Referrals: [facility] ([place]) Primary Care Physician Patient Instructions: Pleuritic Chest Pain (DC) Add. Discharge Instructions: 1. Tylenol and ibuprofen for pain control. Return to ER for any concerns. Follow-up with your doctor next week. All discharge instructions reviewed with patient and/or family. Voiced understanding. ALMA ACOSTA APRN May 21, 2022 11:15
[2022-05-21] MEDS ORDERED: KETOROLAC 30 MG/ML VIAL IVP ONE (11:30)
[2022-05-21 11:31] LABS: ALBUMIN 3.9 GM/DL (3.2-4.5); CHLORIDE 107 MMOL/L (98-107); POTASSIUM 3.8 MMOL/L (3.6-5.0); SODIUM 138 MMOL/L (135-145)
[2022-05-21 11:32] LABS: CALCIUM 8.8 MG/DL (8.5-10.1)
[2022-05-21 11:33] LABS: GLUCOSE 88 MG/DL (70-105); TOTAL PROTEIN 7.5 GM/DL (6.4-8.2)
[2022-05-21 11:34] LABS: CARBON DIOXIDE 24 MMOL/L (21-32)
[2022-05-21 11:36] LABS: ALKALINE PHOSPHATASE 84 U/L (40-136)
[2022-05-21 11:37] LABS: CREATININE SERUM 0.88 MG/DL (0.60-1.30); GFR ESTIMATED 83
[2022-05-21 11:38] LABS: BUN/CREATININE RATIO 10
[2022-05-21 11:40] LABS: ALANINE AMINOTRANSFERASE 39 U/L (0-55)
[2022-05-21 11:52] VITALS: BP 154/82
--- NOTE | 2022-05-21 12:15 | Diagnostic Imaging Report ---
INDICATION: pleuritic pain. TECHNIQUE: Two view chest 11:35 AM CORRELATION STUDY: 02/08/2022 FINDINGS: The heart size, mediastinal configuration and pulmonary vasculature are within normal limits. The lungs are clear with no consolidating infiltrate. There is no significant pleural effusion or pneumothorax. Visualized osseous structures are unremarkable. IMPRESSION: 1. Stable chest demonstrating no acute abnormality. Dictated by: Dictated on workstation # [id number]
== END 2022-05-21 11:52 | disposition home or self-care (01) ==
LOC: ER 10:22 → EDUNIT# 10:22 → ER 11:52
DX: R07.81 Pleurodynia (principal); G47.30 Sleep apnea, unspecified; Z99.89 Dependence on other enabling machines and devices
CPT/HCPCS: 36415; 71046; 80053; 84484; 85025; 93005

== ENCOUNTER 2022-07-27 05:36 | Outpatient (CLI) | payer MEDICAID ==
[~2022-07-27] VITALS: Ht 160 cm; Wt 103.0 kg
[~2022-07-27 05:36] MED LIST changes: +ALBU8.5H6 IH; -RT-ALBUINH IH
[2022-07-28] MEDS ORDERED: FLUT1BLS IH (10:53)
[2022-07-28] MEDS ORDERED: LOSA50TA63 PO (10:53)
[2022-07-28] MEDS ORDERED: CETI10TA17 PO (10:54)
[2022-07-28] MEDS ORDERED: SACC250C9 PO (10:54)
== END 2022-07-28 10:58 ==
LOC: PREOP 05:36
PROVIDERS: ATTEND Surgery
DX: Z01.818 Encounter for other preprocedural examination (principal); R10.12 Left upper quadrant pain

== ENCOUNTER 2022-08-03 08:19 | Day surgery (SDC) | payer MEDICAID ==
[~2022-08-03] VITALS: Ht 160 cm; Wt 103.0 kg
[~2022-08-03 08:19] MED LIST changes: +CETI10TA17 PO; +FLUT1BLS IH; +LOSA50TA63 PO; +SACC250C9 PO
[2022-08-03] MEDS ORDERED: LACTATED RINGERS 1,000 ML IV STA (08:26)
[2022-08-03] MEDS ORDERED: HURRICAINE EXT TUBE (BENZOCAINE) XX PRN (08:30)
[2022-08-03 08:45] VITALS: BP 158/106
[2022-08-03] MEDS ORDERED: MIDAZOLAM 2 MG/2 ML (VERSED) VIAL ONE (09:42)
[2022-08-03] MEDS ORDERED: PROPOFOL INJECTION 50 ML IV ONE (09:43)
[2022-08-03] MEDS ORDERED: PANT40TA2 PO (09:53)
--- NOTE | 2022-08-03 09:54 | Discharge Inst-Simple/Standard ---
Discharge Inst-Standard Patient Instructions/Follow Up Plan of Care/Instructions/FU: Return to outpatient clinic in 2 weeks to follow-up with Dr. Kirby Activity as Tolerated: Yes Discharge Diet: Regular Diet MARLON KIRBY DO Aug 03, 2022 09:54
[2022-08-03 09:55] VITALS: BP 120/75
[2022-08-03 10:00] VITALS: BP 117/65
[2022-08-03 10:05] VITALS: BP 117/65
--- NOTE | 2022-08-03 10:34 | Anesthesia-General Post-Op ---
MAC Patient Condition Mental Status/LOC: Same as Preop Cardiovascular: Satisfactory Nausea/Vomiting: Absent Respiratory: Satisfactory Pain: Controlled Complications: Absent Post Op Complications Complications None Follow Up Care/Instructions Patient Instructions None needed. Anesthesiology Discharge Order Discharge Order Patient is doing well, no complaints, stable vital signs, no apparent adverse anesthesia problems. No complications reported per nursing. GARCIA NELSON CRNA Aug 03, 2022 10:34
[2022-08-03 10:40] VITALS: BP 117/65
--- NOTE | 2022-08-03 19:23 | OPERATIVE REPORT ---
DATE OF SERVICE: 08/03/2022 PREOPERATIVE DIAGNOSIS: Left upper quadrant abdominal pain. POSTOPERATIVE DIAGNOSIS: Gastritis. PROCEDURE: EGD with biopsy. SURGEON: Marlon Quezada DO ANESTHESIA: Per PRODUCTION OFFICER. BLOOD LOSS: None. COMPLICATIONS: None. INDICATIONS: The patient is a 47-year-old female who has continued to have left upper quadrant abdominal pain. She understands risks and benefits of procedure and wishes to proceed. Consent was on chart. DESCRIPTION OF PROCEDURE: The patient taken to endoscopy suite, placed in left lateral position. Timeout was performed. Scope was inserted back down the esophagus, stomach, into the duodenum without difficulty. There were no polyps, masses, ulcerations of the duodenum. Scope was retracted back and the stomach was further insufflated. Erythematous changes consistent with gastritis present. Biopsies of the antrum were obtained. The scope was retroflexed noting no other pathology. She will return to normal position, so it was withdrawn to the distal esophagus, biopsy of the GE junction was obtained. No polyps, masses or ulcerations. Scope was retracted back to completely remove, noting no other pathology. The patient tolerated the procedure well without complications, stable to recovery room in stable condition. RECOMMENDATION: The patient will be started on Protonix 40 mg daily. Await biopsy results. Further recommendations pending. She will follow up in 2 weeks. She should before that be seen at that time. Job ID: [id number] DocumentID: [id number] Dictated Date: 08/03/2022 09:55:30 Maritime Engineer Date: 08/03/2022 19:21:00 Dictated By: MARLON QUEZADA DO
== END 2022-08-03 11:00 | disposition home or self-care (01) ==
LOC: ENDO 08:19
PROVIDERS: ATTEND Surgery
DX: K29.50 Unspecified chronic gastritis without bleeding (principal); K21.00 Gastro-esophageal reflux disease with esophagitis, without bleeding; G47.33 Obstructive sleep apnea (adult) (pediatric); Z79.899 Other long term (current) drug therapy; E66.9 Obesity, unspecified; Z68.41 Body mass index [BMI] 40.0-44.9, adult
CPT/HCPCS: 88305

== ENCOUNTER → 2022-09-21 | Outpatient (CLI) | payer MEDICAID ==
--- NOTE | 2022-09-21 16:11 | Diagnostic Imaging Report ---
PROCEDURE: Pelvic comp/transvaginal sonogram. TECHNIQUE: Complete transabdominal and transvaginal pelvic ultrasound was performed. In addition, limited pelvic Doppler was performed. INDICATION: Left-sided pelvic pain. Patient has had prior hysterectomy and right oophorectomy. The uterus and right ovary are surgically absent. Left ovary measures 4.4 x 3.3 x 2.9 cm. Left ovary contains multiple small follicles, largest approximately 11 mm in size. There is blood flow to left ovary. No free fluid is seen. IMPRESSION: Status post hysterectomy and right oophorectomy. Study is otherwise unremarkable. Dictated by: Dictated on workstation # [id number]
== END ==
LOC: RAD 12:02
PROVIDERS: ATTEND Obstetrics & Gynecology
DX: R10.2 Pelvic and perineal pain (principal); Z90.710 Acquired absence of both cervix and uterus; Z90.721 Acquired absence of ovaries, unilateral
CPT/HCPCS: 76830; 76856

== ENCOUNTER 2023-03-31 08:59 | Emergency (ER) | payer MEDICAID ==
[~2023-03-31] VITALS: Ht 160 cm; Wt 102.0 kg
[~2023-03-31 08:59] MED LIST changes: +POTA-330 PO; -POTA-51 PO
[2023-03-31] MEDS ORDERED: NS IV 1000 ML 1,000 ML IV STA (09:48)
--- NOTE | 2023-03-31 09:51 | ED Back Pain ---
General Chief Complaint: Back Problems Stated Complaint: ABD PAIN | LOWER BACK PAIN Nursing Triage Note: PT AMB TO [facility] 5 WITH C/O L BACK, KIDNEY AND HIP PAIN SINCE YESTERDAY. PT DENIES HX OF KIDNEY STONES. 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 Patient states she has been taking some Tylenol without any relief of symptoms. She states movement and sitting upright make it worse, nothing really makes it any better. She denies any numbness, tingling or weakness to the left leg. No problems with urination, hematuria. No burning. No frequency. She is status post partial hysterectomy and still has her left ovary, states that she has a history of ovarian cysts. The pain is primarily in her back and over the top of her left buttock. No problems with bowel movements. No black or bloody stools. She has never had a kidney stone before. She denies any fevers or chills. No rashes. Location: Lumbar Spine (left side) Timing/Duration: Other (2 weeks; worse the last couple of days) Severity: Severe Pain/Injury Location: Abdomen, Back, Lower Extremity (left hip) Modifying Factors: Worse With Movement Associated Symptoms: denies symptoms; No numbness in legs/feet, No tingling in legs/feet, No sensory/motor loss; lower back pain; No loss of bladder control, No loss of bowel control Allergies and Home Medications Allergies Coded Allergies: pantoprazole (Verified Allergy, Unknown, Itching, 03/31/23) Patient Home Medication List Home Medication List Reviewed: Yes Albuterol Sulfate (Ventolin Hfa) 1 Puff Puff, 2 PUFF IH Q4H PRN for WHEEZING, (Reported) Entered as Reported by: MINDI BONILLA on 10/27/20 1243 Cetirizine HCl (Cetirizine HCl) 10 Mg Tablet, 10 MG PO DAILY, (Reported) Entered as Reported by: MINDI BONILLA on 07/28/22 1054 Fluticasone/Vilanterol (Breo Ellipta 200-25 Mcg INH) 200 Mcg-25 Mcg/Dose Blst.w.dev, 1 PUFF IH DAILY, (Reported) Entered as Reported by: MINDI BONILLA on 07/28/22 1053 Losartan Potassium (Losartan Potassium) 50 Mg Tablet, 50 MG PO DAILY, (Reported) Entered as Reported by: MINDI BONILLA on 07/28/22 1053 Pantoprazole Sodium (Protonix) 40 Mg Tablet.dr, 40 MG PO DAILY Prescribed by: MARLON NAVARRO on 08/03/22 0953 Saccharomyces Boulardii (Probiotic) 250 Mg Capsule, 250 MG PO DAILY, (Reported) Entered as Reported by: MINDI BONILLA on 07/28/22 1054 Review of Systems Constitutional: see HPI EENTM: no symptoms reported Respiratory: no symptoms reported Cardiovascular: no symptoms reported Gastrointestinal: abdominal pain (LLQ) Genitourinary: no symptoms reported : No Musculoskeletal: joint pain (left hip) Skin: no symptoms reported Psychiatric/Neurological: No Symptoms Reported Past Lznamaj-Vclhpj-Mbhpjy Hx Patient Social History Tobacco Use?: No Use of E-Cig and/or Vaping dev: No Substance use?: No Alcohol Use?: Yes Alcohol type: Wine Alcohol Frequency: Rarely Pt feels they are or have been: No Immunizations Up To Date Tetanus Booster (TDap): Less than 5yrs PED Vaccines UTD: Yes First/Initial COVID19 Vaccinat: 2020 Second COVID19 Vaccination Gerardo: 2020 Third COVID19 Vaccination Date: 2020 Seasonal Allergies Seasonal Allergies: Yes Past Medical History Surgery/Hospitalization HX: hyst, t and a, asthma, lap ewelina, x5, eye surgery htn Surgeries: Yes (CS X5;UMBILICAL HERNIA;KNEE SX; EYE SX X2;LAVH/LIDIA/RSO) Abdominal, Section, Eye Surgery, Gallbladder, Hysterectomy, Oophorectomy, Orthopedic, Tonsillectomy Respiratory: Yes Asthma, Sleep Apnea Currently Using CPAP: Yes (Sleep Apnea ) Currently Using BIPAP: No Cardiac: Yes Hypertension Neurological: No Reproductive Disorders: Yes Female Reproductive Disorders: Menstrual Problems 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 Sexually Transmitted Disease: No HIV/AIDS: No Genitourinary: No Gastrointestinal: Yes Gastroesophageal Reflux, Chronic Constipation Musculoskeletal: Yes Chronic Back Pain Endocrine: No HEENT: Yes (GLASSES, EYE SURGERY X 2) Loss of Vision: Denies Hearing Impairment: Denies Cancer: No Psychosocial: Yes Anxiety, Depression Integumentary: No 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 TREVINO -UMBILICAL HERNIA REPAIR Physical Exam Vital Signs Vital Signs - First Documented 03/31/23 09:08 Temp 36.2 Pulse 97 Resp 17 B/P (MAP) 174/123 (140) Pulse Ox 100 O2 Delivery Room Air Capillary Refill : Height, Weight, BMI Height: 5'3.00" Weight: 228lbs. oz. 103.504332aq; 39.00 BMI Method:Stated General Appearance: WD/WN, Anxious, Mild Distress HEENT: PERRL/EOMI Neck: Full Range of Motion Cardiovascular: Regular Rate, Rhythm Respiratory: Lungs Clear, Normal Breath Sounds, No Accessory Muscle Use, No Respiratory Distress Gastrointestinal: Soft, Tenderness (Tenderness elicited with deep palpation in the left lower quadrant, no rebound no involuntary guarding) Back: Normal Inspection, No Vertebral Tenderness, CVA Tenderness (L) Extremity: Normal Capillary Refill, Normal Inspection, Normal Range of Motion, Non Tender, No Calf Tenderness, No Pedal Edema Neurologic/Psychiatric: Alert, Oriented x3, No Motor/Sensory Deficits, inspector purchased parts II- XII Norm as Tested, Depressed Affect Skin: Normal Color, Warm/Dry Progress/Results/Core Measures Results/Orders Lab Results Laboratory Tests Test 03/31/23 09:17 03/31/23 09:20 Range/Units White Blood Count 4.9 4.3-11.0 10^3/uL Red Blood Count 4.65 3.80-5.11 10^6/uL Hemoglobin 14.0 11.5-16.0 g/dL Hematocrit 42 35-52 % Mean Corpuscular Volume 91 80-99 fL Mean Corpuscular Hemoglobin 30 25-34 pg Mean Corpuscular Hemoglobin Concent 33 32-36 g/dL Red Cell Distribution Width 12.8 10.0-14.5 % Platelet Count 285 130-400 10^3/uL Mean Platelet Volume 10.0 9.0-12.2 fL Immature Granulocyte % (Auto) 0 % Neutrophils (%) (Auto) 45 42-75 % Lymphocytes (%) (Auto) 40 12-44 % Monocytes (%) (Auto) 12 0-12 % Eosinophils (%) (Auto) 2 0-10 % Basophils (%) (Auto) 1 0-10 % Neutrophils # (Auto) 2.2 1.8-7.8 10^3/uL Lymphocytes # (Auto) 1.9 1.0-4.0 10^3/uL Monocytes # (Auto) 0.6 0.0-1.0 10^3/uL Eosinophils # (Auto) 0.1 0.0-0.3 10^3/uL Basophils # (Auto) 0.1 0.0-0.1 10^3/uL Immature Granulocyte # (Auto) 0.0 0.0-0.1 10^3/uL Sodium Level 142 135-145 MMOL/L Potassium Level 3.6 3.6-5.0 MMOL/L Chloride Level 110 H 98-107 MMOL/L Carbon Dioxide Level 23 21-32 MMOL/L Anion Gap 9 5-14 MMOL/L Blood Urea Nitrogen 10 7-18 MG/DL Creatinine 0.94 0.60-1.30 MG/DL Estimat Glomerular Filtration Rate 76 BUN/Creatinine Ratio 11 Glucose Level 99 70-105 MG/DL Calcium Level 9.1 8.5-10.1 MG/DL Urine Color YELLOW Urine Clarity CLEAR Urine pH 6.0 5-9 Urine Specific [place] 1.020 1.016-1.022 Urine Protein NEGATIVE NEGATIVE Urine Glucose (UA) NEGATIVE NEGATIVE Urine Ketones NEGATIVE NEGATIVE Urine Nitrite NEGATIVE NEGATIVE Urine Bilirubin NEGATIVE NEGATIVE Urine Urobilinogen 0.2 < = 1.0 MG/DL Urine Leukocyte Esterase NEGATIVE NEGATIVE Urine RBC (Auto) NEGATIVE NEGATIVE Urine RBC NONE /HPF Urine WBC 0-2 /HPF Urine Squamous Epithelial Cells 10-25 H /HPF Urine Crystals PRESENT H /LPF Urine Amorphous Sediment FEW JOSE URATES H /LPF Urine Bacteria TRACE /HPF Urine Casts NONE /LPF Urine Mucus SMALL H /LPF Urine Culture Indicated NO My Orders Orders - EDGARDO PARK MD Ed Iv/Invasive Line Start (03/31/23 09:48) Cbc With Automated Diff (03/31/23 09:48) Basic Metabolic Panel (03/31/23 09:48) Ua Culture If Indicated (03/31/23 09:48) Ns Iv 1000 Ml (Sodium Chloride 0.9%) (03/31/23 09:48) Morphine Injection (Morphine Injection (03/31/23 10:00) Ondansetron Injection (Zofran Injectio (03/31/23 10:00) Ct Abd/Pelvis Wo(Kidney Stone) (03/31/23 10:19) Orphenadrine Inj (Ed Only) (Norflex Inje (03/31/23 12:00) Ketorolac Injection (Ketorolac Injection (03/31/23 12:00) Dexamethasone Injection (Decadron Injec (03/31/23 12:00) Medications Given in ED Current Medications Medications Dose Ordered Sig/Gregg Route Start Time Stop Time Status Last Admin Dose Admin Morphine Sulfate 4 mg ONCE ONCE IVP 03/31/23 10:00 03/31/23 10:01 DC 03/31/23 09:57 4 MG Ondansetron HCl 4 mg ONCE ONCE IVP 03/31/23 10:00 03/31/23 10:01 DC 03/31/23 09:57 4 MG Vital Signs/I&O 03/31/23 09:08 Temp 36.2 Pulse 97 Resp 17 B/P (MAP) 174/123 (140) Pulse Ox 100 O2 Delivery Room Air Blood Pressure Mean: 140 Progress Progress Note #1: Time: 11:45 Progress Note re-evaluated. Continues to have pain. Advised she forgot to tell me Dr Verna leavitt ordered an MRI of her lumbar spine - it is scheduled for this Tuesday. Progress Note #2: Time: 12:02 Progress Note Patient seen and evaluated by me. Evaluation today includes physical exam, CBC, basic metabolic panel, urinalysis, CT renal stone protocol. Pertinent physical exam findings well-developed well-nourished obese female moderate distress due to pain. Tender to palpation over the left flank, left back, left hip and left lower quadrant of the abdomen. No involuntary guarding or rebound. Distal neurovascularly intact to the left extremity. No motor or sensory weakness. Differential diagnosis based on history and physical exam pyelonephritis, kidney stone, lumbar radiculopathy, diverticulitis Labs, independently reviewed and interpreted by me. Her CBC is normal, her chemistry is normal. Her urinalysis shows no evidence of infection or hematuria. CT scan as read by the radiologist shows no evidence of renal stone. No inflammatory processes around the kidneys. No diverticulitis. Patient is treated initially with Zofran and morphine. When I went in to reevaluate her at 1145 she was still tearful with pain. I added Toradol and Norflex to her pain management. She was also given 8 mg of Decadron. She will be discharged home with muscle relaxers, pain medication. Zjbr-iif-cikaadp lidocaine patches recommended as well as Biofreeze. We will give her a work note for tomorrow. Return precautions provided in both verbal and written format. All questions are sought and answered. Patient is stable for discharge. Diagnostic Imaging Diagonstic Imaging: CT Plain Films/CT/US/NM/MRI: chest Comments [facility] [place] NAME: HEATHER ALLEN [facility] REC#: [id number] PT STATUS: REG ER : 1975 PHYSICIAN: EDGARDO PARK MD ADMIT DATE: 03/31/23/ER Draft Date of Exam:03/31/23 CT ABD/PELVIS WO(KIDNEY STONE) PROCEDURE: CT urinary tract, rule out kidney stone. TECHNIQUE: Multiple contiguous axial images were obtained through the abdomen and pelvis without the use of intravenous contrast. Auto Exposure Controls were utilized during the CT exam to meet ALARA standards for radiation dose reduction. INDICATION: Left-sided abdominal pain. COMPARISON: 02/06/2021. FINDINGS: Included portions of the lung bases show two new small micronodules within the right lower lobe with subtle surrounding hazy ground-glass density. The larger of these measures 3 mm in diameter (image 12, series 2). CT ABDOMEN: Kidneys, adrenal glands, spleen, pancreas, and liver have an unremarkable noncontrast CT appearance. Small bowel loops are nondilated. Normal appendix is identified. There is no loculated fluid collection, free fluid, or free air within the abdomen. No abnormal mesenteric or retroperitoneal adenopathy is seen. Osseous structures show no acute abnormalities. CT PELVIS: Urinary bladder is unopacified and essentially nondistended. No calculi are seen within the urinary bladder. There is no loculated fluid collection, free fluid, or free air. No abnormal lymph nodes are seen. Osseous structures show no acute abnormalities. IMPRESSION: 1. No acute abnormality is seen within the abdomen or pelvis. 2. New small micronodules with subtle surrounding hazy ground-glass density in the right lower lobe. If patient is in a high-risk category, such as history of smoking, one-year follow-up could be performed to ensure stability. Dictated on workstation # [id number] Dict: 03/31/23 1113 Trans: 03/31/23 1127 [id number] Interpreted by: LUIS MANUEL EAGLE MD Electronically signed by: Departure Impression Primary Impression: Pain in left lumbar region of back Disposition: 01 HOME, SELF-CARE Condition: Stable Departure-Patient Inst. Decision time for Depature: 11:59 Referrals: [facility] (PCP/Family) Primary Care Physician Patient Instructions: Low back pain in adults Add. Discharge Instructions: You can apply sshi-soj-xvnzijz Biofreeze or lidocaine patches to the sore area of your back. A heating pad would also work. Use the methocarbamol/muscle relaxer 1 to 2 pills every 8 hours as needed for muscle spasm. Also hydrocodone, 1 tablet with 1 extra strength Tylenol every 6 hours as needed for more severe pain. If you develop any leg weakness, numbness or tingling, loss of control of your bowels or bladder please return to the emergency department for reevaluation. Please keep your appointment with your MRI and follow-up with Dr. LOCKHART as scheduled. Scripts Hydrocodone/Acetaminophen (Hydrocodone-Acetamin 5-325 mg) 5 Mg-325 Mg Tablet 1 TAB PO Q6H PRN for PAIN-MODERATE (5-7), #10 TAB Prov: EDGARDO PARK MD 03/31/23 Methocarbamol (Methocarbamol) 750 Mg Tablet 750 MG PO Q8H for Back Pain, #30 TAB Prov: EDGARDO PARK MD 03/31/23 Work/School Note: Work Release Form Date Seen in the Emergency Department: Mar 31, 2023 Return to Work: Apr 01, 2023 Copy Copies To 1: OTONIEL THAKUR KATHRYN M MD Mar 31, 2023 09:51
[2023-03-31 09:56] LABS: BASOPHILS # (AUTO) 0.1 10^3/uL (0.0-0.1); BASOPHILS % (AUTO) 1 % (0-10); EOSINOPHILS # (AUTO) 0.1 10^3/uL (0.0-0.3); EOSINOPHILS % (AUTO) 2 % (0-10); HEMATOCRIT 42 % (35-52); LYMPHOCYTES # (AUTO) 1.9 10^3/uL (1.0-4.0); LYMPHOCYTES % (AUTO) 40 % (12-44); MEAN CORPUSCULAR HEMOGLOBIN 30 pg (25-34); MEAN CORPUSCULAR HGB CONC 33 g/dL (32-36); MEAN CORPUSCULAR VOLUME 91 fL (80-99); MONOCYTES # (AUTO) 0.6 10^3/uL (0.0-1.0); MONOCYTES % (AUTO) 12 % (0-12); NEUTROPHILS # (AUTO) 2.2 10^3/uL (1.8-7.8); NEUTROPHILS % (AUTO) 45 % (42-75); PLATELET COUNT 285 10^3/uL (130-400); WHITE BLOOD COUNT 4.9 10^3/uL (4.3-11.0)
[2023-03-31] MEDS ORDERED: morphine INJ 4 MG/ML 1 ML (VIAL/SYRINGE) IVP ONE (10:00)
[2023-03-31] MEDS ORDERED: ONDANSETRON 4 MG/2 ML (SDV) Z0FRAN IVP ONE (10:00)
[2023-03-31 10:06] LABS: POTASSIUM 3.6 MMOL/L (3.6-5.0)
[2023-03-31 10:08] LABS: CALCIUM 9.1 MG/DL (8.5-10.1)
[2023-03-31 10:11] LABS: CLARITY,URINE CLEAR; COLOR,URINE YELLOW; PROTEIN,URINE NEGATIVE (NEGATIVE)
[2023-03-31 10:12] LABS: AMORPHOUS SEDIMENT,UR FEW AMOR URATES /LPF; BACTERIA,URINE TRACE /HPF; BILIRUBIN,URINE NEGATIVE (NEGATIVE); GLUCOSE, URINE (UA) NEGATIVE (NEGATIVE); KETONES,URINE NEGATIVE (NEGATIVE); LEUKOCYTE ESTERASE ,URINE NEGATIVE (NEGATIVE); NITRITE,URINE NEGATIVE (NEGATIVE); WBC,URINE 0-2 /HPF
[2023-03-31 10:12] LABS: CREATININE SERUM 0.94 MG/DL (0.60-1.30)
--- NOTE | 2023-03-31 11:27 | Diagnostic Imaging Report ---
PROCEDURE: CT urinary tract, rule out kidney stone. TECHNIQUE: Multiple contiguous axial images were obtained through the abdomen and pelvis without the use of intravenous contrast. Auto Exposure Controls were utilized during the CT exam to meet ALARA standards for radiation dose reduction. INDICATION: Left-sided abdominal pain. COMPARISON: 02/06/2021. FINDINGS: Included portions of the lung bases show two new small micronodules within the right lower lobe with subtle surrounding hazy ground-glass density. The larger of these measures 3 mm in diameter (image 12, series 2). CT ABDOMEN: Kidneys, adrenal glands, spleen, pancreas, and liver have an unremarkable noncontrast CT appearance. Small bowel loops are nondilated. Normal appendix is identified. There is no loculated fluid collection, free fluid, or free air within the abdomen. No abnormal mesenteric or retroperitoneal adenopathy is seen. Osseous structures show no acute abnormalities. CT PELVIS: Urinary bladder is unopacified and essentially nondistended. No calculi are seen within the urinary bladder. There is no loculated fluid collection, free fluid, or free air. No abnormal lymph nodes are seen. Osseous structures show no acute abnormalities. IMPRESSION: 1. No acute abnormality is seen within the abdomen or pelvis. 2. New small micronodules with subtle surrounding hazy ground-glass density in the right lower lobe. If patient is in a high-risk category, such as history of smoking, one-year follow-up could be performed to ensure stability. Dictated by: Dictated on workstation # [id number]
[2023-03-31] MEDS ORDERED: ORPHENADRINE 60 MG/2 ML (NORFLEX) AMP (ED ONLY) IV ONE (12:00)
[2023-03-31] MEDS ORDERED: dexAMETHasone INJ 4 MG/ML SDV IV ONE (12:00)
[2023-03-31] MEDS ORDERED: KETOROLAC INJ 15 MG/ML VIAL IVP ONE (12:00)
[2023-03-31] MEDS ORDERED: METH-732 PO (12:06)
[2023-03-31] MEDS ORDERED: ACHD5005 PO (12:06)
[2023-03-31 12:46] VITALS: BP 160/94
== END 2023-03-31 12:47 | disposition home or self-care (01) ==
LOC: EDUNIT# 08:59 → ER 09:01
DX: M54.50 Low back pain, unspecified (principal); E66.9 Obesity, unspecified; G47.30 Sleep apnea, unspecified; Z68.39 Body mass index [BMI] 39.0-39.9, adult; Z99.89 Dependence on other enabling machines and devices
CPT/HCPCS: 36415; 74176; 80048; 81000; 85025

== ENCOUNTER → 2023-06-14 | Outpatient (CLI) | payer MEDICAID ==
[~2023-06-14] MED LIST changes: +METH-732 PO
--- NOTE | 2023-06-14 14:18 | Diagnostic Imaging Report ---
PROCEDURE: Pelvic comp/transvaginal sonogram. TECHNIQUE: Complete transabdominal and transvaginal pelvic ultrasound was performed. In addition, limited pelvic Doppler was performed. INDICATION: Prior history of hysterectomy and right nephrectomy. Patient also has history of endometriosis. Currently patient complains of pelvic and perineal pain. FINDINGS: The uterus and right ovary are surgically absent. The left ovary measures 3.5 x 2.9 x 3.0 cm. The left ovary does contain a complex hypoechoic mass with internal debris measuring 3 cm, likely a hemorrhagic cyst. There does appear to be blood flow to the left ovary. There is no free fluid. IMPRESSION: Status post hysterectomy and right oophorectomy. There does appear to be a 3 cm hemorrhagic left ovarian cyst. Dictated by: Dictated on workstation # [id number]
== END ==
LOC: RAD 10:34
PROVIDERS: ATTEND Nurse Practitioner Women's Health
DX: N83.202 Unspecified ovarian cyst, left side (principal); Z90.710 Acquired absence of both cervix and uterus; Z90.721 Acquired absence of ovaries, unilateral
CPT/HCPCS: 76830; 76856

== ENCOUNTER 2023-07-15 07:07 | Outpatient (CLI) | payer MEDICAID ==
[~2023-07-15] VITALS: Ht 160 cm; Wt 101.4 kg
[~2023-07-15 07:07] MED LIST changes: +HYDR15SO11 PO; -HYDR15SO8 PO
[2023-07-15] MEDS ORDERED: CALC300T4 PO (15:31)
[2023-07-15] MEDS ORDERED: LACT-228 PO (15:31)
[2023-07-15] MEDS ORDERED: CELE-112 PO (15:31)
[2023-07-15] MEDS ORDERED: AMLO-250 PO (15:31)
[2023-07-15] MEDS ORDERED: FLUT1BLS3 IH (15:31)
[2023-07-15] MEDS ORDERED: CRAN250T2 PO (15:31)
[2023-07-20] MEDS ORDERED: MESA400C3 PO (13:35)
== END 2023-07-15 15:32 ==
LOC: PREOP 07:07
PROVIDERS: ATTEND Surgery
DX: Z01.818 Encounter for other preprocedural examination (principal)